=== PATIENT | male | born 1990 | race Caucasian/White ===

== ENCOUNTER → 2016-07-31 | Outpatient (CLI) | payer BC ==
[~2016-07-31] MED LIST: ACET-1047 PO; ALPR-411 PO; AMOX875T PO; BUPR8MIS SL; CLON0.5T3 PO; DEXM10TA2 PO; DICY20TA35 PO; DIPH25CA50 PO; EFFSR375 PO; KETO10TA PO; MDR4 PO; NCY50 PO; OMEP40CA41 PO; ONDA4TAB10 SL; OXYC-57 PO; OXYC1TAB3 PO; PARO10TA4 PO; PARO1TAB27 PO; PXL/10 PO; RIVA1.5T PO; SENN-65 PO; SENN8.6T7 PO; SERT50TA PO; TRAZ50TA35 PO; XRL15 PO; ZOFRAN ODT PO
[2016-07-31 15:26] LABS: ALT/SGPT 17 U/L (12-78); AST/SGOT 11 U/L (15-37); BLOOD UREA NITROGEN 13 mg/dl (7-18); BUN/CREATININE RATIO 14.4 (10-20); CARBON DIOXIDE 30 mmol/L (21-32); CHLORIDE 106 mmol/L (98-107); CREATININE 0.93 mg/dl (0.60-1.40); GLUCOSE 75 mg/dl (70-99); SODIUM 141 mmol/L (136-145)
[2016-07-31 15:28] LABS: ALB/GLOB RATIO 1.1 (0.9-2); ALKALINE PHOSPHATASE 68 U/L (45-117)
== END | disposition home or self-care (01) ==
LOC: C.LAB 14:12
PROVIDERS: ATTEND Family Medicine
DX: F11.10 Opioid abuse, uncomplicated (principal)

== ENCOUNTER 2016-09-19 17:04 | Emergency (ER) | payer BC ==
[~2016-09-19] VITALS: Ht 182.9 cm; Wt 89.8 kg
[~2016-09-19 17:04] MED LIST changes: -ACET-1047 PO; -AMOX875T PO; -BUPR8MIS SL; -CLON0.5T3 PO; -DEXM10TA2 PO; -DICY20TA35 PO; -DIPH25CA50 PO; -EFFSR375 PO; -KETO10TA PO; -MDR4 PO; -NCY50 PO; -OMEP40CA41 PO; -ONDA4TAB10 SL; -OXYC-57 PO; -OXYC1TAB3 PO; -PARO10TA4 PO; -PARO1TAB27 PO; -PXL/10 PO; -RIVA1.5T PO; -SENN-65 PO; -SENN8.6T7 PO; -SERT50TA PO; -TRAZ50TA35 PO; -XRL15 PO; -ZOFRAN ODT PO
[2016-09-19 17:11] VITALS: TEMP 36.4; Ht 182.9 cm; Wt 89.8 kg
[2016-09-19 17:28] VITALS: O2SAT 97
[2016-09-19] MEDS ORDERED: ALPR-411 PO (17:55)
--- NOTE | 2016-09-19 18:05 | DIAGNOSTIC IMAGING REPORT ---
CHEST ONE VIEW PORTABLE CLINICAL HISTORY: cp, sob dyspnea COMPARISON STUDY: 2015 FINDINGS: The bones soft tissues and hemidiaphragms are normal. The cardiomediastinal silhouette is normal. The lungs are clear. The pulmonary vasculature is normal. IMPRESSION: Negative chest. Electronically signed by: Rudy Parker M.D. 09/19/2016 6:04 PM Dictated Date/Time: 09/19/2016 6:04 PM
[2016-09-19 18:14] LABS: BASO % 0.1 %; BASO ABS # 0.01 K/uL (0-0.2); COMPLETE YES; EOS % 1.1 %; IG% 0.2 %; LYMPH % 22.9 %; LYMPH ABS # 1.94 K/uL (1.2-3.4); MEAN CELL VOLUME 88.3 fL (80-100); MEAN CORPUSCULAR HEMOGLOBIN 30.8 pg (25-34); MEAN CORPUSCULAR HGB CONC 34.9 g/dl (32-36); MEAN PLATELET VOLUME 9.7 fL (7.4-10.4); MONO % 6.7 %; PLATELET COUNT 264 K/uL (130-400); RED BLOOD COUNT 4.87 M/uL (4.7-6.1); WHITE BLOOD COUNT 8.48 K/uL (4.8-10.8)
[2016-09-19 18:31] LABS: ALT/SGPT 24 U/L (12-78); BLOOD UREA NITROGEN 6 mg/dl (7-18); BUN/CREATININE RATIO 5.8 (10-20); CALCIUM 9.2 mg/dl (8.5-10.1); CARBON DIOXIDE 25 mmol/L (21-32); CHLORIDE 107 mmol/L (98-107); GLUCOSE 111 mg/dl (70-99); POTASSIUM 3.6 mmol/L (3.5-5.1); SODIUM 142 mmol/L (136-145)
[2016-09-19 18:42] LABS: ALKALINE PHOSPHATASE 75 U/L (45-117); AST/SGOT 14 U/L (15-37)
[2016-09-19 19:05] VITALS: BP 140/90; PULSE 101; O2SAT 96
[2016-09-19 19:09] LABS: BENZODIAZEPINE, URINE NEG (NEG); COCAINE,URINE NEG (NEG); PHENCYCLIDINE, URINE NEG (NEG)
--- NOTE | 2016-09-19 19:24 | EMERGENCY ROOM VISIT NOTE ---
History Report prepared by Suellen: Connie Rice Under the Supervision of: Dr. Kanika Apple D.O. First contact with patient: 17:18 Chief Complaint: ANXIETY Stated Complaint: BAD ANXIETY ATTACK History of Present Illness The patient is a 25 year old male who presents to the Emergency Room with complaints of an episode of anxiety last night. He was just at home when it started getting harder for him to breathe. His throat felt like it was swelling up and his breathing became continually harder. This made him more anxious and this perpetuated until he felt like he was completely unable to breathe. Eventually, his anxiety subsided and he was able to sleep. He woke up this morning and he started to feel anxious again prompting him to come to the ED. He was worried that he would have another anxiety attack. He has a history of anxiety and depression since middle school. He has never had thoughts of hurting himself. He has only had one prior panic attack. He had some vomiting last night and today. The glands in his neck feel swollen. He denies any stressful events in his life recently. He is not in school and his work is low stress. He denies any recent illness. He denies any nausea, headache, dizziness , abdominal pain, diarrhea, rash, or sores. He denies any recent travel or drug use. He denies any family history of panic attacks. He is not on any medications. Source of History: patient Onset: last night Position: other (global) Quality: other (anxiety) Timing: other (episodic) Associated Symptoms: + vomiting, No headache, No nausea, No abdominal pain, No diarrhea, No rash Note: Pt reports neck gland swelling. Pt denies dizziness, sores. Review of Systems See HPI for pertinent positives & negatives. A total of 10 systems reviewed and were otherwise negative. Past Medical & Surgical Medical Problems: (1) Depression (2) Drug abuse Family History Patient reports no known family medical history. Social History Smoking Status: Never Smoker Alcohol Use: occasionally Housing Status: lives with family Current/Historical Medications Scheduled PRN Alprazolam (Alprazolam), 0.5 MG PO BID PRN for Anxiety Allergies Coded Allergies: No Known Allergies (Unverified , 09/18/16) Physical Exam Vital Signs Date Time Temp Pulse Resp B/P (MAP) Pulse Ox O2 Delivery O2 Flow Rate FiO2 09/19/16 19:05 101 18 140/90 96 Room Air 09/19/16 18:37 99 18 98 Room Air 09/19/16 17:33 100 09/19/16 17:28 97 Room Air 09/19/16 17:11 36.4 113 20 127/87 95 Room Air Physical Exam GENERAL: alert, anxious appearing, well nourished, no distress, non-toxic EYE EXAM: normal conjunctiva, PERRL and EOM's grossly intact OROPHARYNX: no exudate, no erythema, lips, buccal mucosa, and tongue normal and mucous membranes are moist NECK: supple, no nuchal rigidity, no adenopathy, non-tender LUNGS: Clear to auscultation. Normal chest wall mechanics HEART: no murmurs, S1 normal and S2 normal ABDOMEN: abdomen soft, non-tender, normo-active bowel sounds, no masses, no rebound or guarding. BACK: Back is symmetrical on inspection and there is no deformity, no midline tenderness, no CVA tenderness. SKIN: no rashes and no bruising UPPER EXTREMITIES: upper extremities are grossly normal. LOWER EXTREMITIES: No pitting edema. NEURO EXAM: Normal sensorium, cranial nerves II-XII grossly intact, normal speech, no gross weakness of arms, no gross weakness of legs. Medical Decision & Procedures ER Provider Diagnostic Interpretation: Xray results have been interpreted by the radiologist and me. CHEST ONE VIEW PORTABLE CLINICAL HISTORY: cp, sob dyspnea COMPARISON STUDY: 2015 FINDINGS: The bones soft tissues and hemidiaphragms are normal. The cardiomediastinal silhouette is normal. The lungs are clear. The pulmonary vasculature is normal. IMPRESSION: Negative chest. Electronically signed by: Rudy Parker M.D. 09/19/2016 6:04 PM Dictated Date/Time: 09/19/2016 6:04 PM Laboratory Results 09/19/16 17:50 Red Blood Count 4.87, Mean Corpuscular Volume 88.3, Mean Corpuscular Hemoglobin 30.8, Mean Corpuscular Hemoglobin Concent 34.9, Mean Platelet Volume 9.7, Neutrophils (%) (Auto) 69.0, Lymphocytes (%) (Auto) 22.9, Monocytes (%) (Auto) 6.7, Eosinophils (%) (Auto) 1.1, Basophils (%) (Auto) 0.1, Neutrophils # (Auto) 5.85, Lymphocytes # (Auto) 1.94, Monocytes # (Auto) 0.57, Eosinophils # (Auto) 0.09, Basophils # (Auto) 0.01 09/19/16 17:50 Test 09/19/16 17:50 09/19/16 18:20 White Blood Count 8.48 K/uL (4.8-10.8) Red Blood Count 4.87 M/uL (4.7-6.1) Hemoglobin 15.0 g/dL (14.0-18.0) Hematocrit 43.0 % (42-52) Mean Corpuscular Volume 88.3 fL (80-100) Mean Corpuscular Hemoglobin 30.8 pg (25-34) Mean Corpuscular Hemoglobin Concent 34.9 g/dl (32-36) Platelet Count 264 K/uL (130-400) Mean Platelet Volume 9.7 fL (7.4-10.4) Neutrophils (%) (Auto) 69.0 % Lymphocytes (%) (Auto) 22.9 % Monocytes (%) (Auto) 6.7 % Eosinophils (%) (Auto) 1.1 % Basophils (%) (Auto) 0.1 % Neutrophils # (Auto) 5.85 K/uL (1.4-6.5) Lymphocytes # (Auto) 1.94 K/uL (1.2-3.4) Monocytes # (Auto) 0.57 K/uL (0.11-0.59) Eosinophils # (Auto) 0.09 K/uL (0-0.5) Basophils # (Auto) 0.01 K/uL (0-0.2) RDW Standard Deviation 42.7 fL (36.4-46.3) RDW Coefficient of Variation 13.2 % (11.5-14.5) Immature Granulocyte % (Auto) 0.2 % Immature Granulocyte # (Auto) 0.02 K/uL (0.00-0.02) D-Dimer 330 ug/L FEU (0-500) Anion Gap 10.0 mmol/L (3-11) Est Creatinine Clear Calc Drug Dose 126.1 ml/min Estimated GFR () 122.4 Estimated GFR (Non- 105.6 BUN/Creatinine Ratio 5.8 (10-20) Calcium Level 9.2 mg/dl (8.5-10.1) Total Bilirubin 0.3 mg/dl (0.2-1) Aspartate Amino Transf (AST/SGOT) 14 U/L (15-37) Alanine Aminotransferase (ALT/SGPT) 24 U/L (12-78) Alkaline Phosphatase 75 U/L (45-117) Troponin I < 0.015 ng/ml (0-0.045) Total Protein 7.8 gm/dl (6.4-8.2) Albumin 3.8 gm/dl (3.4-5.0) Globulin 4.0 gm/dl (2.5-4.0) Albumin/Globulin Ratio 1.0 (0.9-2) Thyroid Stimulating Hormone (TSH) 1.050 uIu/ml (0.300-4.500) Urine Opiates Screen NEG (NEG) Urine Methadone, Qualitative NEG (NEG) Urine Barbiturates NEG (NEG) Urine Phencyclidine (PCP) Level NEG (NEG) Ur Amphetamine/Methamphetamine NEG (NEG) MDMA (Ecstasy) Screen NEG (NEG) Urine Benzodiazepines Screen NEG (NEG) Urine Cocaine Metabolite NEG (NEG) Urine Marijuana (THC) NEG (NEG) Ethyl Alcohol mg/dL 75.0 mg/dl (0-3) Laboratory results per my review. ECG Indication: SOB/dyspnea Rate (beats per minute): 91 Rhythm: sinus rhythm Findings: no acute ischemic change, no ectopy, other (normal axis, normal intervals, no evidence of WPW, no evidence of Brugada) ED Course 172: The patient was evaluated in room A11B. A complete history and physical exam was performed. 1918: Upon reevaluation, the patient is feeling better. I discussed the findings and the treatment plan with the patient. He verbalizes agreement and understanding. He was discharged home. Pt states he drank alcohol this am when had another panic attack because he could swallow pills. Pt questioned about his drinking in front of family and he states he doesn't drink regularly and doesn't feel it's a problem. Encouraged close follow-up with his psychiatrist in establishing counselor to help discuss his stress and anxiety also. Patient says he does have alprazolam at home that his psychiatrist prescribed to use when he has panic attacks. Medical Decision Differential diagnosis: Etiologies such as mood disorder, infection, hypoglycemia, electrolyte abnormalities, cardiac sources, intracerebral event, toxicologic, neurologic, as well as others were entertained. Medication Reconciliation: I attest that I have personally reviewed the patient' s current medication list. Blood pressure screening: Patient was found to have a slightly elevated blood pressure due to circumstances. I do not believe that the patient requires hypertension monitoring. Patient well-appearing here despite complaints, labs and imaging reassuring. Scuffs patient avoidance of alcohol and recreational drug use, close follow-up with counselor and psychiatrist, appropriate use of the alprazolam his previous prescribed home, symptoms to watch and return for, he verbalized understanding was agreeable with plan. Doubt occult cardiac etiology, PE, occult infectious etiology, pheochromocytoma, cutting myopathy, tamponade, effusion, perforation, GI bleed. Impression Primary Impression: Acute anxiety Scribe Attestation The scribe's documentation has been prepared under my direction and personally reviewed by me in its entirety. I confirm that the note above accurately reflects all work, treatment, procedures, and medical decision making performed by me. Departure Information Dispostion Home / Self-Care Referrals Edd Leon, D.O. (PCP) Patient Instructions My [facility] Additional Instructions You may try the alprazolam you have at home if you feel you're having a panic attack. Please consider establishing a counselor to see more frequently than your once a month visit to the psychiatrist. Please avoid any further alcohol use is can contribute to panic attacks. You may otherwise eat and drink normally. If you have any worsening attacks, feel the alprazolam doesn't help, or develop other new and concerning symptoms, please return the emergency room.
[2016-09-21] MEDS ORDERED: OXYC-57 PO (15:45)
[2016-09-21] MEDS ORDERED: KETO10TA PO (15:45)
[2016-10-22] MEDS ORDERED: NCY50 PO (13:31)
[2016-10-22] MEDS ORDERED: EFFSR375 PO (13:31)
[2016-10-22] MEDS ORDERED: DIPH25CA50 PO (13:31)
[2016-10-22] MEDS ORDERED: ACET-1047 PO (13:31)
[2016-10-22] MEDS ORDERED: MDR4 PO (13:31)
[2016-10-22] MEDS ORDERED: XRL15 PO (13:31)
[2016-10-22] MEDS ORDERED: SENN8.6T7 PO (13:31)
== END 2016-09-19 19:31 | disposition home or self-care (01) ==
LOC: C.EDB 17:06 → C.EDA 19:31
DX: F41.9 Anxiety disorder, unspecified (principal)

== ENCOUNTER → 2016-09-21 | Day surgery (SDC) | payer BC ==
[2016-09-18 12:24] VITALS: Ht 182.9 cm; Wt 88.6 kg
[~2016-09-21] VITALS: Ht 182.9 cm; Wt 88.6 kg
[~2016-09-21] MED LIST changes: +ACET-1047 PO; +AMOX875T PO; +ATROPINE SULFATE 0.1 MG/ML 5ML SYR IV PRN; +BND25X PO; +BUPIVACAINE/EPINEPHRINE 0.25% 1:200,000 30 ML VIAL ONE; +CEFAZOLIN 2000 MG/60 ML D5W IV SCH; +CLON0.5T3 PO; +DEXAMETHASONE SOD INJ 4 MG/ML VIAL IV PRN; +DEXAMETHASONE SOD INJ 4 MG/ML VIAL ONE; +DEXM10TA2 PO; +DICY20TA35 PO; +EFFSR375 PO; +EpHEDrine SULFATE INJ 50 MG/ML AMP IV PRN; +FENTANYL CITRATE INJ 50 MCG/1 ML 2 ML VIAL IV PRN; +FENTANYL CITRATE INJ 50 MCG/1 ML 2 ML VIAL ONE; +KETO10TA PO; +KETOROLAC TROMETHAMINE 30 MG/ML VIAL IV. PRN; +LABETALOL HCL IV 5 MG/ML 20ML IV PRN; +LACTATED RINGER'S 1000ML 1,000 ML IV SCH; +LIDOCAINE HCL 1% MPF 2 ML VIAL ONE; +LIDOCAINE HCL 2% 2 ML VIAL (20MG/ML) ONE; +MDR4 PO; +METOCLOPRAMIDE HCL INJ 5 MG/ML 2 ML VIAL IV PRN; +MIDAZOLAM HCL 1 MG/ML 2ML VIAL ONE; +MoRPHine SULFATE 10 MG/ML CARP/VIAL IV PRN; +NCY50 PO; +OMEP40CA41 PO; +ONDA4TAB10 SL; +ONDANSETRON INJ 2 MG/ML 2 ML VIAL IV PRN; +ONDANSETRON INJ 2 MG/ML 2 ML VIAL ONE; +OXYC-57 PO; +OXYC1TAB3 PO; +OXYCODONE/ACETAMINOPHEN 5-325 TAB PO PRN; +PARO10TA4 PO; +PARO1TAB27 PO; +PHENYLEPHRINE 100MCG/ML 5ML SYR IV PRN; +PROPOFOL IV EMULSION 10 MG/ML 20 ML VIAL IV ONE; +PXL/10 PO; +RIVA1.5T PO; +ROPIVACAINE 0.5% 5 MG/ML 30 ML VIAL ONE; +SENN-65 PO; +SENN8.6T7 PO; +SODIUM CHLORIDE 0.9% 1000ML 1,000 ML IV SCH; +XRL15 PO; +ZOFRAN ODT PO
--- NOTE | 2016-09-21 10:59 | History & Physical Bridge - SC ---
H&P Re-Evaluation Bridge Note: I have examined the patient, reviewed the History & Physical and in the interval since the performance of the History & Physical I have noted the following changes of clinical significance: No changes noted
--- NOTE | 2016-09-21 15:37 | [facility] Post Operative Brief Note ---
Immediate Operative Summary Operative Date Sep 21, 2016. Pre-Operative Diagnosis Right Shoulder Anterior Dislocation Post-Operative Diagnosis same Procedure(s) Performed Right Shoulder Open Afs[place]h Surgeon Dr. Maikel Campbell Pipe Stem Sawyer Surgeon(s) Jose F Diehl PA-C Estimated Blood Loss 150CC Findings as above Specimens none Complication(s) None Disposition Recovery Room / PACU
--- NOTE | 2016-09-21 15:47 | Discharge Instructions-SurgCtr ---
Discharge Instructions Date of Service Sep 21, 2016. Visit Reason for Visit: Right Shoulder Anterior Dislocation Discharge Discharge Diagnosis / Problem: SAME ABOVE Discharge Goals Goal(s): Decrease discomfort, Improve function Activity Recommendations Activity Limitations: as noted below Lifting Limitations: until after follow-up appointment Exercise/Sports Limitations: until after follow-up appointment Shower/Bathe: tomorrow Anesthesia . Post Anesthesia Instructions: If you have had General Anesthesia or IV Sedation: * Do not drive today. * Resume driving when surgeon permits. * Do not make important decisions or sign legal documents today. * Call surgeon for: 1. Temperature elevations greater than 101 degrees F. 2. Uncontrollable pain. 3. Excessive bleeding. 4. Persistent nausea and vomiting. 5. Medication intolerance (nausea, vomiting or rash). * For nausea and vomiting use only clear liquids such as: tea, soda, bouillon until nausea subsides, then gradually increase diet as tolerated. * If you have any concerns or questions, call your surgeon's office. If physician is unavailable and it is an emergency, call 911 or go to the nearest emergency room. . Instructions / Follow-Up Instructions / Follow-Up MEDICATIONS: * Resume previous medications unless instructed otherwise by your surgeon. * Always take pain medication on a full stomach or with food to avoid upset stomach. * Do not drink alcohol or drive while taking narcotics. * Ibuprofen or Tylenol may be taken if narcotic not needed. SPECIAL CARE INSTRUCTIONS: __ None _X_ Keep extremity elevated and iced x 48 hours; apply ice 20-30 minutes 8-10 times/day. May remove at night. _X_ Sling (MAY ONLY REMOVE AFTER 48 HOURS ONLY TO SHOWER AND IF YOU HAVE THERAPY ) _X_24 hrs/day __ Remove at night __ Shoulder Immobilizer __ 24 hrs/day __ Remove at night _X_ Dressing __ Maintain until seen in office, may shower with plastic over site _X_ Remove dressings in 24-48 hours and then may shower MAY REMOVE THE CLEAR PLASTIC AND THE WHITE DRESSING. DO NOT REMOVE THE ADHESIVE THE IS DIRECTLY TO THE SKIN NEAR THE INCISION __ Cover incisions with band-aids after showering __ Do not remove steri-strips Call physician if chills or temperature rises above 102 degrees or pain unrelieved by prescribed pain medications at . . Diet Recommendations Home Diet: no limitations Fluid Restriction: None Procedures Procedures Performed: Right Shoulder Open Latarjet Pending Studies Studies pending at discharge: no Work Instructions Return To Work: after follow-up Lifting Limitations: NO LIFTING WITH RIGHT ARM Medical Emergencies . Who to Call and When: Medical Emergencies: If at any time you feel your situation is an emergency, please call 911 immediately. . Non-Emergent Contact Non-Emergency issues call your: Primary Care Provider Call Non-Emergent contact if: you have a fever, temperature is above 101.5 . . "Provider Documentation" section prepared by Narciso Diehl. .
[2016-09-21 16:20] VITALS: TEMP 37.1
--- NOTE | 2016-09-21 16:47 | Anesthesia Progress Nt - [facility] ---
Anesthesia Post Op Note Date & Time Sep 21, 2016 at 16:47 Vital Signs Pain Intensity: 2 Vital Signs Past 12 Hours Date Time Temp Pulse Resp B/P (MAP) Pulse Ox O2 Delivery O2 Flow Rate FiO2 09/21/16 16:35 107 18 146/88 (107) 98 Room Air 09/21/16 16:22 97 15 98 09/21/16 16:22 97 15 09/21/16 16:21 141/85 09/21/16 16:20 37.1 99 21 141/85 97 Room Air 09/21/16 16:17 94 30 98 09/21/16 16:17 94 30 09/21/16 16:16 146/83 09/21/16 16:12 98 19 100 09/21/16 16:12 97 19 09/21/16 16:11 138/86 09/21/16 16:07 91 29 100 09/21/16 16:07 92 29 09/21/16 16:06 138/88 09/21/16 16:02 94 20 100 09/21/16 16:02 99 20 09/21/16 16:01 133/80 09/21/16 15:57 98 21 09/21/16 15:57 99 21 99 09/21/16 15:56 130/74 09/21/16 15:52 85 18 99 09/21/16 15:52 85 18 09/21/16 15:51 136/76 09/21/16 15:48 126/77 09/21/16 15:47 36.8 92 18 126/77 100 Room Air 09/21/16 13:37 0 09/21/16 13:36 141/87 09/21/16 13:34 88 09/21/16 13:34 84 19 99 09/21/16 13:31 148/86 09/21/16 13:29 96 09/21/16 13:29 99 21 147/83 100 09/21/16 11:35 36.8 89 16 123/85 (98) 97 Room Air Notes Mental Status: alert / awake / arousable, participated in evaluation Pt Amnestic to Procedure: Yes Nausea / Vomiting: adequately controlled Pain: adequately controlled Airway Patency, RR, SpO2: stable & adequate BP & HR: stable & adequate Hydration State: stable & adequate Anesthetic Complications: no major complications apparent
[2016-09-21 16:55] VITALS: BP 147/81; PULSE 92; O2SAT 96
--- NOTE | 2016-10-04 13:07 | OPERATIVE REPORT ---
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 POSTOPERATIVE DIAGNOSIS: Same. PROCEDURE: Open Latarjet procedure of the right shoulder. SURGEON: Dr. Felix Campbell. PRESIDING JUDGE: Jose F Diehl PA-C who assistance was necessary for positioning the arm and helping with instrumentation. ANESTHESIA: General with a right interscalene nerve block. COMPLICATIONS: None. CONDITION: Stable to PACU. INDICATIONS: Mani is a pleasant 25-year-old male who has been having recurrent dislocations of his shoulder. He has already had two failed anatomic Bankart repairs. The last time he dislocated I sent him back to therapy and he continued to dislocate at physical therapy. His recurrent dislocations are changing his life so he has elected to proceed with an open Latarjet procedure. On September 21, 2016, he arrived at [facility] for the above procedure. He was seen in the preoperative holding area and the operative extremity was identified and signed. He was given a preoperative antibiotic and a right interscalene nerve block. He was taken back to the operating room and laid on the table in supine position and put under general anesthesia. He was then put into the beach chair position. The right shoulder was prepped and draped in sterile fashion and a timeout was done. The patient and operative extremity were properly identified. An axillary incision was made. Dissection was taken down through the deltopectoral interval and the anterior shoulder was exposed. The coracoid was exposed first. The coracoacromial ligament was released off the lateral aspect of the coracoid and the pectoralis minor was released off the medial aspect. The coracoid was then resected with an oscillating saw. The subscapularis was then exposed. A subscapularis split technique was then used to expose the anterior glenoid. Once I had good exposure anterior glenoid a bur was used to flatten out the anterior surface of the glenoid. The coracoid graft was then prepared using the Ar[employer]rex Latarjet system. Two 4 mm drill holes were placed through the graft and the graft was being oriented in a congruent arc technique. The coracoid graft was then placed and two guidepins were placed. The anterior aspect of the glenoid was then drilled and a 36 mm screw was placed superiorly and a 34 mm screw was placed inferiorly. This gave excellent purchase and stability to the graft. The shoulder was then irrigated and the subscapularis capsular layer was closed with 0 Vicryl. The subscapularis was then repaired with 0 Vicryl. The shoulder was brought through a full range of motion and felt to be stable. The wound was then irrigated and closed with 3-0 Vicryl and a 3-0 V-Loc suture and a Prineo dressing. He was placed in a soft dressing and a regular arm sling. He was then extubated and transferred to a [facility] and taken to the post-anesthesia care unit in stable condition. He tolerated the procedure well.
== END | disposition home or self-care (01) ==
LOC: X.SURG 11:24
PROVIDERS: ATTEND Orthopaedic Surgery
DX: S43.014A Anterior dislocation of right humerus, initial encounter (principal); X58.XXXA Exposure to other specified factors, initial encounter

== ENCOUNTER 2016-10-19 09:48 | Inpatient (IN) | payer BC ==
[~2016-10-19] VITALS: Ht 182.9 cm; Wt 91.6 kg
[~2016-10-19 09:48] MED LIST changes: -ACET-1047 PO; -AMOX875T PO; -ATROPINE SULFATE 0.1 MG/ML 5ML SYR IV PRN; -BND25X PO; -BUPIVACAINE/EPINEPHRINE 0.25% 1:200,000 30 ML VIAL ONE; -CEFAZOLIN 2000 MG/60 ML D5W IV SCH; -CLON0.5T3 PO; -DEXAMETHASONE SOD INJ 4 MG/ML VIAL IV PRN; -DEXAMETHASONE SOD INJ 4 MG/ML VIAL ONE; -DEXM10TA2 PO; -DICY20TA35 PO; -EFFSR375 PO; -EpHEDrine SULFATE INJ 50 MG/ML AMP IV PRN; -FENTANYL CITRATE INJ 50 MCG/1 ML 2 ML VIAL IV PRN; -FENTANYL CITRATE INJ 50 MCG/1 ML 2 ML VIAL ONE; -KETOROLAC TROMETHAMINE 30 MG/ML VIAL IV. PRN; -LABETALOL HCL IV 5 MG/ML 20ML IV PRN; -LACTATED RINGER'S 1000ML 1,000 ML IV SCH; -LIDOCAINE HCL 1% MPF 2 ML VIAL ONE; -LIDOCAINE HCL 2% 2 ML VIAL (20MG/ML) ONE; -MDR4 PO; -METOCLOPRAMIDE HCL INJ 5 MG/ML 2 ML VIAL IV PRN; -MIDAZOLAM HCL 1 MG/ML 2ML VIAL ONE; -MoRPHine SULFATE 10 MG/ML CARP/VIAL IV PRN; -NCY50 PO; -OMEP40CA41 PO; -ONDA4TAB10 SL; -ONDANSETRON INJ 2 MG/ML 2 ML VIAL IV PRN; -ONDANSETRON INJ 2 MG/ML 2 ML VIAL ONE; -OXYC1TAB3 PO; -OXYCODONE/ACETAMINOPHEN 5-325 TAB PO PRN; -PARO10TA4 PO; -PARO1TAB27 PO; -PHENYLEPHRINE 100MCG/ML 5ML SYR IV PRN; -PROPOFOL IV EMULSION 10 MG/ML 20 ML VIAL IV ONE; -PXL/10 PO; -RIVA1.5T PO; -ROPIVACAINE 0.5% 5 MG/ML 30 ML VIAL ONE; -SENN-65 PO; -SENN8.6T7 PO; -SODIUM CHLORIDE 0.9% 1000ML 1,000 ML IV SCH; -XRL15 PO; -ZOFRAN ODT PO
[2016-10-19 10:34] LABS: BASO % 0.1 %; BASO ABS # 0.01 K/uL (0-0.2); COMPLETE YES; EOS % 1.3 %; IG% 0.2 %; LYMPH % 28.4 %; LYMPH ABS # 2.65 K/uL (1.2-3.4); MEAN CELL VOLUME 88.1 fL (80-100); MEAN CORPUSCULAR HEMOGLOBIN 29.7 pg (25-34); MEAN CORPUSCULAR HGB CONC 33.7 g/dl (32-36); MEAN PLATELET VOLUME 9.3 fL (7.4-10.4); MONO % 10.1 %; NEUT % 59.9 %; PLATELET COUNT 273 K/uL (130-400); RED BLOOD COUNT 4.88 M/uL (4.7-6.1); WHITE BLOOD COUNT 9.34 K/uL (4.8-10.8)
[2016-10-19 10:45] LABS: PARTIAL THROMBOPLASTIN RATIO 1.1; PROTHROMBIN TIME (PATIENT) 10.8 SECONDS (9.0-12.0)
[2016-10-19 10:50] LABS: BLOOD UREA NITROGEN 10 mg/dl (7-18); BUN/CREATININE RATIO 9.8 (10-20); CALCIUM 9.5 mg/dl (8.5-10.1); CARBON DIOXIDE 29 mmol/L (21-32); CHLORIDE 103 mmol/L (98-107); GLUCOSE 87 mg/dl (70-99); POTASSIUM 3.7 mmol/L (3.5-5.1); SODIUM 135 mmol/L (136-145)
[2016-10-19 10:55] LABS: C-REACTIVE PROTEIN 0.66 mg/dl (0-0.29)
--- NOTE | 2016-10-19 10:59 | DIAGNOSTIC IMAGING REPORT ---
CHEST 2 VIEWS ROUTINE CLINICAL HISTORY: dyspnea, left chest pain pain COMPARISON STUDY: 09/19/2016 FINDINGS: Patchy parenchymal infiltrative change left lung base. Lungs otherwise are clear. No evidence for cardiac enlargement. IMPRESSION: Patchy parenchymal infiltrate left lung base. The above report was generated using voice recognition software. It may contain grammatical, syntax or spelling errors. Electronically signed by: Rudy Parker M.D. 10/19/2016 10:58 AM Dictated Date/Time: 10/19/2016 10:57 AM
[2016-10-19] MEDS ORDERED: OPTIRAY 320 IV PRN (11:00)
--- NOTE | 2016-10-19 11:30 | DIAGNOSTIC IMAGING REPORT ---
(CHEST FOR PE) ANGIO WITH CLINICAL HISTORY: 25 years-old Male presenting with left rib pain, increases with deep breath and dry hacking cough, complains of chills, clinical concern for pulmonary embolus. TECHNIQUE: Multidetector CT angiography of the chest was performed after administration of intravenous contrast. 3-D volumetric and maximum intensity projection (MIP) images were subsequently reconstructed for review. IV contrast: 94 mL of Optiray 320. A dose lowering technique was used consistent with the principles of ALARA (as low as reasonably achievable). COMPARISON: 05/08/2013. CT DOSE (mGy.cm): The estimated cumulative dose is 380.58 mGy.cm. FINDINGS: Quiller Machine Fixer topogram: Unremarkable. Pulmonary vasculature: The study is adequate for assessment of the pulmonary vascular tree. Filling defects within the right upper lobe pulmonary artery and distal segmental right upper lobe arteries as well as subsegmental pulmonary arteries of the right lower lobe. Subsegmental emboli in the left lower lobe may also be present. Main pulmonary artery not enlarged. Mild flattening of the interventricular septum. No intracardiac filling defect within the right heart. Remaining chest: On soft tissue windows, normal thyroid and thoracic inlet. No axillary, supraclavicular, hilar, or mediastinal lymphadenopathy. Normal aorta. Multichamber enlargement of the heart. Small left pleural effusion. Upper abdomen normal. On lung windows, minimal nodular groundglass opacities in the posterior segment of the right upper lobe along the major fissure. Bandlike dependent consolidation at the left lower lobe with more groundglass and nondependent consolidation in the lateral basal segment along the major fissure (series 4 image 76). Airways patent. On bone windows, 2 pin fixation across the anterior right glenoid fossa with fragmentation and persistent fracture plane along the anterior glenoid rim. IMPRESSION: 1. Bilateral pulmonary emboli within the right upper lobe, right lower lobe, and left lower lobe. The right upper lobe pulmonary artery is involved, although primarily involvement segmental/subsegmental pulmonary arteries. Apparent mild flattening of the interventricular septum could raise concern for right heart strain. Correlate clinically. 2. Minimal nodular groundglass opacities in the right upper lobe, could relate to the presence of pulmonary emboli. 3. Left basilar atelectasis with small left pleural effusion. 4. Additional consolidation in the nondependent left lower lobe. Although this may relate to pulmonary emboli, dissection cannot be excluded. The report will be called/faxed according to standard departmental protocol. Electronically signed by: Catrachito García M.D. 10/19/2016 11:29 AM Dictated Date/Time: 10/19/2016 11:16 AM
[2016-10-19] MEDS ORDERED: MoRPHine SULFATE 10 MG/ML CARP/VIAL IV STA (11:38)
[2016-10-19] MEDS ORDERED: ONDANSETRON INJ 2 MG/ML 2 ML VIAL IV STA (11:38)
[2016-10-19] MEDS ORDERED: MoRPHine SULFATE 4 MG/ML 1 ML CARP\\VIAL ONE (11:43)
[2016-10-19] MEDS ORDERED: MoRPHine SULFATE 4 MG/ML 1 ML CARP\\VIAL IV STA (11:43)
[2016-10-19] MEDS ORDERED: HEPARIN 25000 UNIT/500 ML D5W ONE (11:44)
[2016-10-19] MEDS ORDERED: HEPARIN SOD 5000 UNIT/0.5 ML CARP ONE ×2 (11:44→11:53)
[2016-10-19] MEDS ORDERED: HYDROmorphone INJ 1 MG/ML SYR IV STA (12:06)
--- NOTE | 2016-10-19 12:11 | EMERGENCY ROOM VISIT NOTE ---
ED Visit Note First contact with patient: 09:56 Staff note: I have reviewed the Patients chart and have discussed this case with my PA. I generally agree with the ED note and findings.
[2016-10-19 12:15] VITALS: O2SAT 97; Ht 182.9 cm; Wt 91.6 kg
--- NOTE | 2016-10-19 12:18 | EMERGENCY ROOM VISIT NOTE ---
History First contact with patient: 09:56 Chief Complaint: RESPIRATORY PROBLEMS Stated Complaint: CHEST PAIN Nursing Triage Summary: pt awoke with L rib pain today, pain increases with deep breath, dry hacky cough, c/o chills History of Present Illness The patient is a 25 year old male who presents to the Emergency Room with complaints of left-sided chest pain and dyspnea which began this morning. The patient states he feels that the pain is in his lung. The patient states yesterday he had been coughing a bit, however did not have any chest pain at that time. The patient denies coughing up blood or sputum. He reports a stabbing pain with taking deep breaths. The patient reports some chest congestion but denies fevers, abdominal pain, nausea, vomiting, body aches, weakness. The patient has had intermittent chills. 4 weeks ago, the patient had shoulder surgery. He was not started on blood thinners with his surgery. The patient was on pain medication, however he did run out. The patient has been mostly immobile since his surgery, and has not been exercising or very active the patient does have a history of chest pain, however he states this feels significantly different than his previous chest pain did. The patient reports 2-3 days ago, he did experience bilateral calf pain, however states this improved within 1 day. He described calf pain as feeling sore, and feeling like he had been to the gym and exercising, however he had not been. The patient denies swelling, redness, weakness, or other associated symptoms. The pain in his chest does worsen with deep breathing and coughing, as well as moving. The pain improves with sitting still and taking shallow breaths. Review of Systems A complete 10 point review of systems was reviewed with the patient with pertinent positives and negatives as per history of present illness. All else were negative. Past Medical/Surgical History Medical Problems: (1) Depression (2) History of narcotic addiction (3) Polysubstance abuse Family History Patient reports no known family medical history. Social History Smoking Status: Never Smoker Alcohol Use: occasionally Housing Status: lives with family Current/Historical Medications Scheduled PRN Alprazolam (Alprazolam), 0.5 MG PO BID PRN for Anxiety Physical Exam Vital Signs Date Time Temp Pulse Resp B/P (MAP) Pulse Ox O2 Delivery O2 Flow Rate FiO2 10/19/16 12:15 92 16 127/84 97 Nasal Cannula 2.0 10/19/16 12:15 97 Nasal Cannula 2.0 10/19/16 11:52 99 Nasal Cannula 2.0 10/19/16 11:46 81 10/19/16 11:40 85 20 121/80 96 Room Air 10/19/16 09:52 36.4 79 18 116/78 100 Room Air Physical Exam VITALS: Vitals are noted on the nurse's note and reviewed by myself. Vital signs stable. GENERAL: 25-year-old male, in no acute distress, nondiaphoretic, well-developed well-nourished. SKIN: The skin was without rashes, erythema, edema, or bruising. There is no tenting of the skin. Capillary reflex less than 2 seconds. HEAD: Normocephalic atraumatic. EARS: External auditory canals clear, tympanic membranes pearly bueno without erythema or effusion bilaterally. EYES: Pupils equal round and reactive to light and accommodation. Conjunctivae without injection, sclerae without icterus. Extraocular movements intact. NOSE: Patent, turbinates without inflammation or discharge. No sinus tenderness. MOUTH: Mucous membranes moist. Tonsils are not enlarged. Pharynx without erythema or exudate. Uvula midline. Airway patent. Tongue does not deviate. NECK: Supple without nuchal rigidity. No lymphadenopathy. No thyromegaly. Cervical spine is nontender. No JVD. HEART: Regular rate and rhythm without murmurs gallops or rubs. LUNGS: Mild wheezing noted bilaterally in all lung cook. No rales or rhonchi. No dullness to percussion. No retractions or accessory muscle use. ABDOMEN: Positive bowel sounds x 4. Normal tympanic percussion. Soft, nontender, without masses or organomegaly. Wilson sign negative. No guarding or rebound tenderness. MUSCULOSKELETAL: No muscle atrophy, erythema, or edema noted. Full range of motion without joint tenderness in all extremities. No tenderness to palpation. Normal gait. Strength 5/5 throughout. NEURO: Patient was alert and oriented to person place and time. Normal sensation to light and sharp touch. Deep tendon reflexes 2+ throughout. No focal neurological deficits. Medical Decision & Procedures ER Provider Diagnostic Interpretation: Labs: D-Dimer positive at 1810. Other coagulation studies normal. CBC without anemia, thrombocytopenia, or leukocytosis. Kidney function normal with Creatinine of 1.00. Electrolytes normal. CRP mildly elevated at 0.66. Chest X-Ray: Reviewed by myself and interpreted by radiologist: FINDINGS: Patchy parenchymal infiltrative change left lung base. Lungs otherwise are clear. No evidence for cardiac enlargement. IMPRESSION: Patchy parenchymal infiltrate left lung base. Chest CTA: Reviewed by myself and interpreted by radiologist: FINDINGS: Licensed Surveyor topogram: Unremarkable. Pulmonary vasculature: The study is adequate for assessment of the pulmonary vascular tree. Filling defects within the right upper lobe pulmonary artery and distal segmental right upper lobe arteries as well as subsegmental pulmonary arteries of the right lower lobe. Subsegmental emboli in the left lower lobe may also be present. Main pulmonary artery not enlarged. Mild flattening of the interventricular septum. No intracardiac filling defect within the right heart. Remaining chest: On soft tissue windows, normal thyroid and thoracic inlet. No axillary, supraclavicular, hilar, or mediastinal lymphadenopathy. Normal aorta. Multichamber enlargement of the heart. Small left pleural effusion. Upper abdomen normal. On lung windows, minimal nodular groundglass opacities in the posterior segment of the right upper lobe along the major fissure. Bandlike dependent consolidation at the left lower lobe with more groundglass and nondependent consolidation in the lateral basal segment along the major fissure (series 4 image 76). Airways patent. On bone windows, 2 pin fixation across the anterior right glenoid fossa with fragmentation and persistent fracture plane along the anterior glenoid rim. IMPRESSION: 1. Bilateral pulmonary emboli within the right upper lobe, right lower lobe, and left lower lobe. The right upper lobe pulmonary artery is involved, although primarily involvement segmental/subsegmental pulmonary arteries. Apparent mild flattening of the interventricular septum could raise concern for right heart strain. Correlate clinically. 2. Minimal nodular groundglass opacities in the right upper lobe, could relate to the presence of pulmonary emboli. 3. Left basilar atelectasis with small left pleural effusion. 4. Additional consolidation in the nondependent left lower lobe. Although this may relate to pulmonary emboli, dissection cannot be excluded. The report will be called/faxed according to standard departmental protocol. Bilateral LE Duplex U/S: Interpreted by radiologist, results obtained after patient admitted as an inpatient. FINDINGS: The bilateral common femoral, superficial femoral and popliteal veins were compressible. Augmentation was normal. Flow was shown within the deep calf vessels. IMPRESSION: No evidence of deep venous thrombus within the bilateral lower extremities. Laboratory Results 10/19/16 10:20 Red Blood Count 4.88, Mean Corpuscular Volume 88.1, Mean Corpuscular Hemoglobin 29.7, Mean Corpuscular Hemoglobin Concent 33.7, Mean Platelet Volume 9.3, Neutrophils (%) (Auto) 59.9, Lymphocytes (%) (Auto) 28.4, Monocytes (%) (Auto) 10.1, Eosinophils (%) (Auto) 1.3, Basophils (%) (Auto) 0.1, Neutrophils # (Auto ) 5.60, Lymphocytes # (Auto) 2.65, Monocytes # (Auto) 0.94, Eosinophils # (Auto ) 0.12, Basophils # (Auto) 0.01 10/19/16 10:20 Test 10/19/16 10:20 White Blood Count 9.34 K/uL (4.8-10.8) Red Blood Count 4.88 M/uL (4.7-6.1) Hemoglobin 14.5 g/dL (14.0-18.0) Hematocrit 43.0 % (42-52) Mean Corpuscular Volume 88.1 fL (80-100) Mean Corpuscular Hemoglobin 29.7 pg (25-34) Mean Corpuscular Hemoglobin Concent 33.7 g/dl (32-36) Platelet Count 273 K/uL (130-400) Mean Platelet Volume 9.3 fL (7.4-10.4) Neutrophils (%) (Auto) 59.9 % Lymphocytes (%) (Auto) 28.4 % Monocytes (%) (Auto) 10.1 % Eosinophils (%) (Auto) 1.3 % Basophils (%) (Auto) 0.1 % Neutrophils # (Auto) 5.60 K/uL (1.4-6.5) Lymphocytes # (Auto) 2.65 K/uL (1.2-3.4) Monocytes # (Auto) 0.94 K/uL (0.11-0.59) Eosinophils # (Auto) 0.12 K/uL (0-0.5) Basophils # (Auto) 0.01 K/uL (0-0.2) RDW Standard Deviation 42.3 fL (36.4-46.3) RDW Coefficient of Variation 13.1 % (11.5-14.5) Immature Granulocyte % (Auto) 0.2 % Immature Granulocyte # (Auto) 0.02 K/uL (0.00-0.02) Prothrombin Time 10.8 SECONDS (9.0-12.0) Prothromb Time International Ratio 1.0 (0.9-1.1) Activated Partial Thromboplast Time 28.9 SECONDS (21.0-31.0) Partial Thromboplastin Ratio 1.1 D-Dimer 1810 ug/L FEU (0-500) Anion Gap 3.0 mmol/L (3-11) Est Creatinine Clear Calc Drug Dose 126.1 ml/min Estimated GFR () 122.4 Estimated GFR (Non- 105.6 BUN/Creatinine Ratio 9.8 (10-20) Calcium Level 9.5 mg/dl (8.5-10.1) Troponin I < 0.015 ng/ml (0-0.045) C-Reactive Protein 0.66 mg/dl (0-0.29) Medications Administered Medications (Trade) Dose Ordered Sig/Saud Route Start Time Stop Time Status Last Admin Dose Admin Ondansetron HCl (Zofran Inj) 4 mg NOW STAT IV 10/19/16 11:38 10/19/16 11:40 DC 10/19/16 11:47 4 MG Heparin Sodium/ Dextrose 1 ea NOW STAT N/A 10/19/16 11:38 10/19/16 11:40 DC 10/19/16 11:38 1 EA Morphine Sulfate (MoRPHine SULFATE INJ) 4 mg NOW STAT IV 10/19/16 11:43 10/19/16 11:44 DC 10/19/16 11:48 4 MG Heparin Sodium/ Dextrose (Heparin 25,000 Unit/500ml D5W) 25,000 unit STK-MED ONCE .ROUTE 10/19/16 11:44 10/19/16 11:45 DC 10/19/16 11:57 25,000 UNIT Heparin Sodium (Porcine) (Heparin Sq 5000 Unit/0.5ml) 5,000 unit STK-MED ONCE .ROUTE 10/19/16 11:44 10/19/16 11:45 DC 10/19/16 11:55 5,000 UNIT Heparin Sodium (Porcine) (Heparin Sq 5000 Unit/0.5ml) 5,000 unit STK-MED ONCE .ROUTE 10/19/16 11:53 10/19/16 11:54 DC 10/19/16 11:57 1,000 UNIT Hydromorphone HCl (Dilaudid Inj) 1 mg NOW STAT IV 10/19/16 12:06 10/19/16 12:07 DC 10/19/16 12:11 1 MG Sodium Chloride 1,000 ml @ 100 mls/hr Q10H IV 10/19/16 12:41 10/19/16 22:40 10/19/16 16:07 100 MLS/HR ECG Indication: chest pain Rate (beats per minute): 75 Rhythm: normal sinus Comparison ECG Date: Change: no significant change ED Course The patient was seen and evaluated as above. IV access was obtained and labs were drawn. EKG was completed. The patient was sent for a chest x-ray. Upon noting positive d-dimer, the patient was sent for CTA. Multiple pulmonary emboli noted within the lungs. The patient does not report any significant bleeding history. He denies intracranial hemorrhage, hematuria , GI bleed, or other history of significant bleeding. The patient was started on a heparin drip and bolus. The patient did request pain medication at this time. The patient was given 4 mg morphine IV and 4 mg Zofran IV. I did contact the [facility] service to request admission for the patient. I spoke with DANIEL Espinoza, via phone and advised her of patient condition. She states they will accept the admission and requested I order a bilateral venous Doppler of the lower extremities. The patient states morphine did not help with his pain. I ordered Dilaudid 1 mg. The patient does report mild improvement in pain with this medication. The patient's parents are at bedside, and I did discuss the patient condition and plan of care at this time with them. Care was assumed by hospitalist at this time. The patient was transferred to the floor. Medical Decision The patient presented today with chest pain and dyspnea. Based on his recent history of surgery and inactivity, I did suspect pulmonary embolism upon initial examination. I did also consider etiologies including acute coronary syndrome, pneumonia, pleural effusion, pneumothorax, hemothorax, acute bronchitis, DVT, endocarditis , pericarditis, musculoskeletal pain, malignancy, and others. Impression Primary Impression: Pulmonary emboli Critical Care I have personally spent greater than 35 minutes of critical care time in the direct management of this patient. This includes bedside care, interpretation of diagnostic studies, and testing, discussion with consultants, patient, and family members, and other required patient management activities. This 35 minutes is in excess of all separately billable procedures. Departure Information Dispostion Admitted as an inpatient Condition GOOD Referrals No Doctor, Assigned (PCP) Patient Instructions [facility] Problem Qualifiers Primary Impression: Pulmonary emboli Pulmonary embolism type: other Chronicity: acute Acute cor pulmonale presence: without acute cor pulmonale Qualified Codes: I26.99 - Other pulmonary embolism without acute cor pulmonale
[2016-10-19] MEDS ORDERED: SODIUM CHLORIDE 0.9% 1000ML 1,000 ML IV SCH (12:41)
[2016-10-19] MEDS ORDERED: ONDANSETRON INJ 2 MG/ML 2 ML VIAL IV PRN (12:45)
[2016-10-19] MEDS ORDERED: ACETAMINOPHEN 325 MG TAB PO PRN (12:45)
[2016-10-19] MEDS ORDERED: ENOXAPARIN 1 MG/KG SQ SCH (14:00)
[2016-10-19] MEDS ORDERED: ENOXAPARIN 100 MG/1ML SYR SQ STA (14:02)
--- NOTE | 2016-10-19 14:10 | Progress Note ---
Progress Note Date of Service Oct 19, 2016. Progress Note Patient was seen and evaluated with HOLLIE Amaya. Patient comes in with c/o chest pain/SOB since today morning. Pain is pleuritic in nature. Had some left calf soreness yesterday. Had recent right shoulder surgery 2 months ago. Hx of Drug abuse on vivitrol. EXAM: Gen- AAOX3, no distress Neck- No JVD Lungs- B/L decreased, no wheezing, rales Heart- S1, S2 normal Abdomen- Soft, non tender, non distended, BS present Ext- no edema Labs- reviewed Imaging- -CT chest- 1. Bilateral pulmonary emboli within the right upper lobe, right lower lobe, and left lower lobe. The right upper lobe pulmonary artery is involved, although primarily involvement segmental/subsegmental pulmonary arteries. Apparent mild flattening of the interventricular septum could raise concern for right heart strain. Correlate clinically. 2. Minimal nodular groundglass opacities in the right upper lobe, could relate to the presence of pulmonary emboli. 3. Left basilar atelectasis with small left pleural effusion. 4. Additional consolidation in the nondependent left lower lobe. Although this may relate to pulmonary emboli, dissection cannot be excluded. ASSESSMENT AND PLAN: BILATERAL PULMONARY EMBOLISM -Patient presented with chest pain, pleuritic, SOB, D dimer elevated, CT chest- B/L PE as above -Pre disposing factor: None identified. Did have right shoulder surgery causing less mobility, but unlikely to cause PE B/L. On vivitrol for drug abuse in past - rarely causes PE. -Not hypoxic, no tachycardia -IV Heparin in ER---> Change to Lovenox SQ BID. Discussed about options of Coumadin vs Xarelto. Will think about it and decide. Prescription given to SS to check for insurance coverage meanwhile -Pain control- challenging with hx of drug abuse, on vivitrol now. Did receive percocet for right shoulder surgery - off it since few weeks, Will do tramadol PRN for moderate pain , IV Morphine 2 mg q 8 hours PRN for severe pain. Cautious about use -Work up- US duplex, Echocardiogram, Trop x 1 negative, CT chest left infiltrate likely related to PE, no signs of pneumonia HX OF DRUG ABUSE -Doing well on vivitrol. No abuse now. -Cautious about narcotic use DVT PROPHYLAXIS Lovenox therapeutic DISPOSITION Admit to telemetry
[2016-10-19] MEDS ORDERED: MoRPHine SULFATE 2 MG/ML CARP IV PRN (14:15)
[2016-10-19 14:20] VITALS: BP 122/82; PULSE 82; TEMP 36.4; O2SAT 96
--- NOTE | 2016-10-19 14:32 | History and Physical ---
History & Physical Date & Time of Service: Oct 19, 2016 at 14:13 Chief Complaint: Chest Pain Primary Care Physician: No Doctor, Assigned History of Present Illness This is a 25yo M with a PMH of depression, polysubstance abuse and R shoulder dislocation s/p surgical repair on 09/21/16 who presents with pleuritic chest pain and dyspnea for one day. Patient woke up today with severe pain on L side of chest, specifically L ribs that is aggravated by inspiration. Radiates upwards to L chest and neck. Has been taking small breaths to avoid pleuritic pain, so feels SOB as a result. Yesterday, patient experienced bilateral calf "soreness" that has since gone away. Complains of a dry cough but denies any fever, chills, lightheadedness, sputum production, wheezing or calf pain. After surgical repair of shoulder dislocation a month ago, patient states that he has been "up and walking around" but is not back to his full activity level. Denies any personal or family history of DVT, PE or clotting disorders. Of note, patient has a history of polysubstance abuse and has been on Suboxone and Vivitrol in the past. Stopped Vivitrol prior to surgery one month ago. In ED, patient was diagnosed with bilateral pulmonary emboli on CTA. Was started on heparin and given pain control. Past Medical/Surgical History Medical Problems: (1) Depression Status: Chronic (2) History of narcotic addiction Status: Chronic (3) Polysubstance abuse Status: Chronic Family History FH: anemia MOTHER Social History Smoking Status: Former Smoker (quit a few years ago) Smokeless Tobacco Use: Uses dip. Last used a few months ago. Alcohol Use: occasionally Drug Use: other (H/o heroin, cocaine, prescription pain meds. Denies current use. ) Housing status: lives with family Multi-Drug Resistant Organisms History of MDRO: No Allergies Coded Allergies: No Known Allergies (Unverified , 10/19/16) Home Medications Scheduled PRN Alprazolam (Alprazolam), 0.5 MG PO BID PRN for Anxiety Review of Systems Ten systems reviewed and negative except as noted in the HPI. Physical Exam Vital Signs Date Time Temp Pulse Resp B/P (MAP) Pulse Ox O2 Delivery O2 Flow Rate FiO2 10/19/16 13:20 100 16 117/81 10/19/16 12:15 92 16 127/84 97 Nasal Cannula 2.0 10/19/16 12:15 97 Nasal Cannula 2.0 10/19/16 11:52 99 Nasal Cannula 2.0 10/19/16 11:46 81 10/19/16 11:40 85 20 121/80 96 Room Air 10/19/16 09:52 36.4 79 18 116/78 100 Room Air General Appearance: + moderate distress (Grimaces during inspiration.) Head: normocephalic Eyes: + abnormal sclerae exam (bilateral icterus) ENT: normal ENT inspection, hearing grossly normal Neck: supple, no adenopathy, thyroid normal Respiratory/Chest: chest non-tender, no respiratory distress (on O2), no accessory muscle use, + decreased breath sounds (bilaterally) Cardiovascular: regular rate, rhythm, no murmur, normal peripheral pulses, + pertinent finding (Tender to palpation on L anteriolateral ribs) Abdomen/GI: normal bowel sounds, soft, no organomegaly Extremities/Musculoskelatal: normal inspection, no calf tenderness, normal capillary refill, no pedal edema Neurologic/Psych: no motor/sensory deficits, alert, normal mood/affect, oriented x 3 Skin: normal color Lymphatic: no adenopathy Diagnostics Laboratory Results Results Past 24 Hours Test 10/19/16 10:20 Range/Units White Blood Count 9.34 4.8-10.8 K/uL Red Blood Count 4.88 4.7-6.1 M/uL Hemoglobin 14.5 14.0-18.0 g/dL Hematocrit 43.0 42-52 % Mean Corpuscular Volume 88.1 80-100 fL Mean Corpuscular Hemoglobin 29.7 25-34 pg Mean Corpuscular Hemoglobin Concent 33.7 32-36 g/dl Platelet Count 273 130-400 K/uL Mean Platelet Volume 9.3 7.4-10.4 fL Neutrophils (%) (Auto) 59.9 % Lymphocytes (%) (Auto) 28.4 % Monocytes (%) (Auto) 10.1 % Eosinophils (%) (Auto) 1.3 % Basophils (%) (Auto) 0.1 % Neutrophils # (Auto) 5.60 1.4-6.5 K/uL Lymphocytes # (Auto) 2.65 1.2-3.4 K/uL Monocytes # (Auto) 0.94 0.11-0.59 K/uL Eosinophils # (Auto) 0.12 0-0.5 K/uL Basophils # (Auto) 0.01 0-0.2 K/uL RDW Standard Deviation 42.3 36.4-46.3 fL RDW Coefficient of Variation 13.1 11.5-14.5 % Immature Granulocyte % (Auto) 0.2 % Immature Granulocyte # (Auto) 0.02 0.00-0.02 K/uL Prothrombin Time 10.8 9.0-12.0 SECONDS Prothromb Time International Ratio 1.0 0.9-1.1 Activated Partial Thromboplast Time 28.9 21.0-31.0 SECONDS Partial Thromboplastin Ratio 1.1 D-Dimer 1810 0-500 ug/L FEU Sodium Level 135 136-145 mmol/L Potassium Level 3.7 3.5-5.1 mmol/L Chloride Level 103 98-107 mmol/L Carbon Dioxide Level 29 21-32 mmol/L Anion Gap 3.0 3-11 mmol/L Blood Urea Nitrogen 10 7-18 mg/dl Creatinine 1.00 0.60-1.40 mg/dl Est Creatinine Clear Calc Drug Dose 126.1 ml/min Estimated GFR () 122.4 Estimated GFR (Non- 105.6 BUN/Creatinine Ratio 9.8 10-20 Random Glucose 87 70-99 mg/dl Calcium Level 9.5 8.5-10.1 mg/dl Troponin I < 0.015 0-0.045 ng/ml C-Reactive Protein 0.66 0-0.29 mg/dl Diagnostic Radiology CXR (10/19/16): IMPRESSION: Patchy parenchymal infiltrate left lung base. Chest/thorax CTA (10/19/16): IMPRESSION: 1. Bilateral pulmonary emboli within the right upper lobe, right lower lobe, and left lower lobe. The right upper lobe pulmonary artery is involved, although primarily involvement segmental/subsegmental pulmonary arteries. Apparent mild flattening of the interventricular septum could raise concern for right heart strain. Correlate clinically. 2. Minimal nodular groundglass opacities in the right upper lobe, could relate to the presence of pulmonary emboli. 3. Left basilar atelectasis with small left pleural effusion. 4. Additional consolidation in the nondependent left lower lobe. Although this may relate to pulmonary emboli, dissection cannot be excluded. EKG Normal sinus rhythm with sinus arrhythmia Impression Assessment and Plan This is a 25yo M with a PMH of depression, polysubstance abuse and R shoulder dislocation s/p surgical repair on 09/21/16 who presents with pleuritic chest pain and dyspnea for one day and was found to have bilateral pulmonary embolisms. Bilateral Pulmonary Embolisms: -Vitals stable, L-sided pleuritic CP, dyspnea and SOB -Risk factors: Had shoulder surgery in past month but unlikely to cause bilateral PE Has been less active since surgery but not immobile -Work up: ECG with NSR, troponin negative x 1, CXR with left infiltrate but no clinical picture for PNA or infection, D-dimer elevated to 1810, Chest/thorax CTA with bilateral PEs (see above) -US venous dopplers, echo pending -Pulm consulted for further recs -Was started on therapeutic dose heparin in the ED but changed to Lovenox SQ -Discussed xarelto vs coumadin for discharge planning. SW consulted to help check insurance coverage -Consulted pain management for recs for pain control in the setting of h/o narcotics abuse. -Given tramadol and morphine 2mg Q8h PRN for pain control H/o drug abuse: -Heroin, cocaine,prescription pain meds in the past. Denies current use -Was on Suboxone 1.5 years ago. Then on vivitrol for 8 months until shoulder surgery 1 month ago -States that he was last on percocet surgery. Denies any narcotic use for the past 2 weeks Depression/anxiety: stable -Continue home meds DVT Ppx: on therapeutic Lovenox Code status: FULL PCP: Carolyn Dispo: Admit to [facility] Level of Care Telemetry Advanced Directives Existing Living Will: No Existing Power of Sensory Scientist: No Resuscitation Status FULL RESUSCITATION VTE Prophylaxis VTE Risk Assessment Done? Y/N: Yes Risk Level: High (diagnosed with bilat PEs. On therapeutic dose anticoagulation. ) Given or contraindicated: Enoxaparin (Lovenox)SQ
[2016-10-19] MEDS: TRAMADOL HCL 50 MG TAB PO PRN ×2 (15:06→20:43)
[2016-10-19 15:27] VITALS: BP 108/68; PULSE 84; TEMP 36.3; O2SAT 95
[2016-10-19] MEDS: ENOXAPARIN 100 MG/1ML SYR SQ SCH (16:06)
--- NOTE | 2016-10-19 16:11 | DIAGNOSTIC IMAGING REPORT ---
BILATERAL LOWER EXTREMITY VENOUS DOPPLER CLINICAL HISTORY: Pulmonary emboli. Calf pain. COMPARISON STUDY: No previous studies for comparison. TECHNIQUE: Sonography of the deep venous system of the bilateral lower extremities was performed. Compression and augmentation were evaluated. FINDINGS: The bilateral common femoral, superficial femoral and popliteal veins were compressible. Augmentation was normal. Flow was shown within the deep calf vessels. IMPRESSION: No evidence of deep venous thrombus within the bilateral lower extremities. Electronically signed by: Kaleb Murphy M.D. 10/19/2016 4:09 PM Dictated Date/Time: 10/19/2016 4:08 PM
[2016-10-19] MEDS: HYDROmorphone INJ 1 MG/ML SYR IV PRN ×2 (17:31→23:36)
[2016-10-19 19:45] VITALS: BP 105/67; PULSE 89; TEMP 36.8; O2SAT 97
[2016-10-19 23:33] VITALS: BP 112/72; PULSE 85; TEMP 36.9; O2SAT 98
[2016-10-19] MEDS: ALPRAZOLAM 0.5 MG TAB PO PRN (23:41)
[2016-10-19 23:59] VITALS: O2SAT 98
[2016-10-20] VITALS (9 sets, daily range): BP systolic 109–129; BP diastolic 69–83; PULSE 72–89; TEMP 36.5–37.1; O2SAT 94–98
[2016-10-20] MEDS: ENOXAPARIN 100 MG/1ML SYR SQ SCH (05:37)
[2016-10-20] MEDS: HYDROmorphone INJ 1 MG/ML SYR IV PRN (05:42)
--- NOTE | 2016-10-20 06:17 | Clinical Documentation Query ---
ROSAS Isaacs : CLINICAL DOCUMENTATION QUERY Patient is a 25 year old male admitted for evaluation and treatment of acute bilateral pulmonary emboli. This is in the setting of recent shoulder surgery and likely immobility postoperatively. Venous duplex of the bilateral legs was negative for thrombus/thrombi. No diagnostic radiology performed on upper extremities. As the pulmonary emboli must have originated somewhere, please provide your clinical opinion as to the most likely source of the PE's as this affects DRG assignment, risk of mortality, and associated severity of illness. Thank you. In your clinical opinion is this patient being managed for: ( ) Bilateral pulmonary emboli secondary to (likely/suspected/possible) DVT of unknown Origin/possibly left arm ( ) Other explanation of clinical findings (Please Explain) ( ) Unable to determine (Please Define) ( ) Need to Discuss ( ) Not Agree The medical record reflects the following clinical findings, treatment, and risk factors. Clinical Indicators: As above Treatment: Heparin to Lovenox, to oral anticoagulant Risk Factors: Surgery and minimally, L shoulder and arm immobility Please clarify and document your clinical opinion in the progress notes and discharge summary. Terms such as "probable", "suspected", "likely", "questionable", "possible", or "still to be ruled out" are acceptable. IF IN AGREEMENT, YOU MUST DOCUMENT ABOVE DIAGNOSTIC STATEMENT IN DAILY PROGRESS NOTES AND DISCHARGE SUMMARY. This document is not part of the patient's record. Thank You, Felix Henry, RN [phone]
[2016-10-20 06:43] LABS: MEAN CELL VOLUME 88.9 fL (80-100); MEAN CORPUSCULAR HEMOGLOBIN 30.7 pg (25-34); MEAN CORPUSCULAR HGB CONC 34.5 g/dl (32-36); MEAN PLATELET VOLUME 8.9 fL (7.4-10.4); PLATELET COUNT 235 K/uL (130-400); WHITE BLOOD COUNT 8.42 K/uL (4.8-10.8)
[2016-10-20 06:54] LABS: PARTIAL THROMBOPLASTIN RATIO 1.3
[2016-10-20 07:18] LABS: BUN/CREATININE RATIO 10.2 (10-20); CALCIUM 8.8 mg/dl (8.5-10.1); CREATININE 0.93 mg/dl (0.60-1.40)
[2016-10-20] MEDS: VENLAFAXINE HCL XR 37.5 MG CAPXR PO SCH (07:52)
[2016-10-20] MEDS ORDERED: PERFLUTREN LIPID MICROSPHERE (DEFINITY) IV ONE (08:47)
[2016-10-20] MEDS ORDERED: NALOXONE HCL 0.4 MG/1 ML VIAL/CARP IV PRN (10:15)
[2016-10-20] MEDS: SODIUM CHLORIDE 0.9% 1000ML 1,000 ML IV SCH (10:15)
--- NOTE | 2016-10-20 10:19 | Pain Management Consultation ---
Pain Management Consultation Date of Consultation Oct 20, 2016. Reason for Consultation This is to the pain management. Pain Location 1 - Left chest pleurtic pain History Mani Corbin III is a 25-year-old male admitted to [facility] with diagnoses of left pulmonary embolus. He underwent right shoulder labrum repair possibly one month ago. He reports experiencing left-sided pleuritic type chest pain yesterday without any reported inciting event. He does not have risk factors for hypercoagulable state and was performing activities required for daily living after undergoing his right shoulder labrum repair. He reports sharp, shooting pain in the left mid chest with inspiration and coughing. Pain is described as sharp and stabbing. Denies spontaneous pain. Denies hemoptysis. He has a previous history of polysubstance abuse, opioid misuse, and dependence. Previously, he admits to use of multiple prescribed analgesics as well as illicit substances including heroin. He has been into rehabilitation twice and was on Suboxone up until approximately a year ago when he was on intramuscular Vivitrol. He reports stopping the Vivitrol a month prior to his shoulder surgery and has not resumed it since. He was discharged after surgery on oxycodone for her shoulder pain. Since his discharge, he denies using any illicit substances or any other opioids. Consultation was requested to assist in managing his pleuritic pain due to pulmonary embolus. Past Medical/Surgical History (1) Depression (2) History of narcotic addiction (3) Polysubstance abuse (4) Bilateral pulmonary embolism Family History FH: anemia MOTHER Social / Work History Smokeless Tobacco Use: Uses dip. Last used a few months ago. Alcohol Use: occasionally Drug Use: marijuana, previous drug use / rehab Marital Status: single Housing Status: lives with family Allergies Coded Allergies: No Known Allergies (Unverified , 10/19/16) Medications Current Inpatient Medications Medications (Trade) Dose Ordered Sig/Saud Route Start Time Stop Time Status Last Admin Dose Admin Ioversol (Optiray 320) 125 ml UD PRN IV 10/19/16 11:00 10/23/16 10:59 Acetaminophen (Tylenol Tab) 650 mg Q4H PRN PO 10/19/16 12:45 11/18/16 12:44 Ondansetron HCl (Zofran Inj) 4 mg Q6H PRN IV 10/19/16 12:45 11/18/16 12:44 Alprazolam (Xanax Tab) 0.5 mg BID PRN PO 10/19/16 14:00 11/18/16 13:59 10/19/16 23:41 0.5 MG Venlafaxine HCl (effeXOR EXTENDED REL CAP) 37.5 mg QAM PO 10/20/16 09:00 11/19/16 08:59 10/20/16 07:52 37.5 MG Tramadol HCl (Ultram Tab) 50 mg Q4H PRN PO 10/19/16 14:15 11/18/16 14:14 10/19/16 20:43 50 MG Enoxaparin Sodium (Lovenox Inj) 90 mg Q12@0600,1800 SQ 10/19/16 15:00 11/18/16 14:59 10/20/16 05:37 90 MG Hydromorphone HCl (Dilaudid Inj) 1 mg Q6H PRN IV 10/19/16 17:15 11/02/16 17:14 10/20/16 05:42 1 MG Review of Systems Denies any recent history of fever, night sweats, unexplained weight loss, or constitutional symptoms. Otherwise, 8 point review of system has been reported to be negative. Physical Exam Height & Weight: Height 6 feet, 0.00 inches. Weight 91.600 (Kilograms) 201 (Pounds) Last Vital Signs Documentation Date Time Temp Pulse Resp B/P (MAP) Pulse Ox O2 Delivery O2 Flow Rate FiO2 10/20/16 04:00 98 Room Air 10/20/16 03:44 36.7 88 18 109/75 (86) 10/19/16 12:15 2.0 Exam: Mr. Corbin is alert and oriented. Mood and affect are appropriate. Short-term and long-term memory is intact. Sensorium is clear. He appears to be in minimal pain with normal inspiration. He complains of pain with deep inspiration. Palpation over the left chest does not produce pain. Exam is otherwise unremarkable. Laboratory Laboratory Results (Last CBC): 10/20/16 06:[address]: reports reviewed CT Findings CT ANGIOGRAPHY: TECHNIQUE: Multidetector CT angiography of the chest was performed after administration of intravenous contrast. 3-D volumetric and maximum intensity projection (MIP) images were subsequently reconstructed for review. IV contrast: 94 mL of Optiray 320. A dose lowering technique was used consistent with the principles of ALARA (as low as reasonably achievable). COMPARISON: 05/08/2013. CT DOSE (mGy.cm): The estimated cumulative dose is 380.58 mGy.cm. FINDINGS: Conference Specialist topogram: Unremarkable. Pulmonary vasculature: The study is adequate for assessment of the pulmonary vascular tree. Filling defects within the right upper lobe pulmonary artery and distal segmental right upper lobe arteries as well as subsegmental pulmonary arteries of the right lower lobe. Subsegmental emboli in the left lower lobe may also be present. Main [place] Drug Monitoring Program Search Results: patient reviewed within database Drug Monitoring Findings: No patient information in PDMP database Opioid Risk Assessment Risk assessment performed, high risk identified Assessment 1. Acute pulmonary emboli 2. History of polysubstance abuse Recommendations 1. Discontinue tramadol. 2. Change to IV hydromorphone at low doses and more frequently. 3. Tapentadol short acting as scheduled dosing for 48 hrs. Monitor for serotonin syndrome with alvaro of SSRI or SNRI. 4. If tapentadol is not covered by insurance after discharge, recommend hydrocodone 5/325 as an outpatient. 5. Recommend resumption of Vivitrol 24 hours after last opiate use. 6. Recommend medrol dose pack for anti inflammatory effect for areas of infarct form emboli.
[2016-10-20] MEDS ORDERED: HYDROmorphone INJ 1 MG/ML SYR IV ONE (10:21)
[2016-10-20] MEDS ORDERED: METHYLPREDNISOLONE 4MG TAB, 6 DAY TAPER PO SCH (10:30)
--- NOTE | 2016-10-20 10:40 | ECHOCARDIOGRAM REPORT ---
*NOTICE TO RECEIVING DEMOCRAT AGENCY This information is strictly Confidential and protected under [place] law. [place] law prohibits you from making any further disclosure of this information unless further disclosure is expressly permitted by the written consent of the person to whom it pertains or is authorized by law. A general authorization for the release of medical or other information is not sufficient for this purpose. Hospital accepts no responsibility if the information is made available to any other person, INCLUDING THE PATIENT. Interpretation Summary * Name: HARINI GHOTRA III Study Date: 10/20/2016 07:56 AM BP: 109/75 mmHg * Patient Location: C.2T\S\S239\S\2 HR: 88 * : 1990 (M/d/yyyy) Gender: Male Height: 72 in * Age: 25 yrs Ethnicity: CA Weight: 202 lb * Ordering Physician: Monique Jha * Referring Physician: Self, Referred * Performed By: Adis Brandt RCS * * Reason For Study: B/L PE's * BSA: 2.1 m2 * -- Conclusions -- * Normal LV chamber size and wall thickness. * Normal LV systolic function, EF 55-60%. * No segmental left ventricular wall motion abnormalities are noted. * Normal diastolic function. * The right ventricular cavity size is normal (basal dimension <4.2 cm in right ventricular apical 4-chamber view). The right ventricular systolic function is normal as assessed by tricuspid annular plane systolic excursion (TAPSE) (normal >1.5 cm). * No significant valvular pathology. Procedure Details * A complete two-dimensional transthoracic echocardiogram was performed (2D, M-mode, Doppler and color flow Doppler). * A contrast injection of Definity was performed to improve assessment for apical thrombus. * Contrast was injected into an intravenous site in the right arm. * One vial of Definity ultrasound contrast was diluted in normal saline to a total volume of 10 ml. A total of '2' ml of solution was administered during imaging. * Lot # [id number] of Definity utilized for procedure. * Expiration date [id number]. * The attending nurse who injected the contrast agent was Maikel Gil RN. Left Ventricle * The left ventricle is normal in size. * There is normal left ventricular wall thickness. * Ejection Fraction = 55-60%. * Left ventricular systolic function is normal. * No segmental left ventricular wall motion abnormalities are noted. * The left ventricular wall motion is normal. Right Ventricle * The right ventricular cavity size is normal (basal dimension <4.2 cm in right ventricular apical 4-chamber view). * The right ventricular systolic function is normal as assessed by tricuspid annular plane systolic excursion (TAPSE) (normal >1.5 cm). Atria * The left atrial size is normal. * Right atrial size is normal. * No ASD detected; PFO is not assessed. Mitral Valve * The mitral valve is normal in structure and function. Tricuspid Valve * The tricuspid valve is normal in structure and function. Aortic Valve * The aortic valve is normal in structure and function. Pulmonic Valve * The pulmonary valve is not well seen, but the Doppler examination is normal without significant regurgitation or stenosis. Great Vessels * The aortic root and proximal ascending aorta are normal sized. Pericardium/Pleural * There is no pericardial effusion. Left Ventricular Diastolic Function * Pulse wave TDI of the anterior and posterior mitral annulas demonstrates normal LV relaxation MMode 2D Measurements and Calculations IVSd 1.0 cm IVSs 1.3 cm LVIDd 5.1 cm LVIDs 3.5 cm LVPWd 0.85 cm LVPWs 1.4 cm IVS/LVPW 1.2 FS 31.0 % EDV(Teich) 124.0 ml ESV(Teich) 51.6 ml EF(Teich) 58.4 % EDV(cubed) 132.9 ml ESV(cubed) 43.6 ml EF(cubed) 67.2 % % IVS thick 25.8 % % LVPW thick 63.5 % LV mass(C)d 176.0 grams LV mass(C)dI 82.3 grams/m\S\2 LV mass(C)s 165.9 grams LV mass(C)sI 77.5 grams/m\S\2 CO(Teich) 5.7 l/min CI(Teich) 2.7 l/min/m\S\2 SV(Teich) 72.4 ml SI(Teich) 33.9 ml/m\S\2 CO(cubed) 7.1 l/min CI(cubed) 3.3 l/min/m\S\2 SV(cubed) 89.3 ml SI(cubed) 41.7 ml/m\S\2 Ao root diam 3.5 cm Ao root area 9.4 cm\S\2 ACS 1.7 cm LA dimension 3.3 cm asc Aorta Diam 2.8 cm LA/Ao 0.96 LVAd ap4 45.1 cm\S\2 LVLd ap4 10.3 cm EDV(MOD-sp4) 164.0 ml LVAs ap4 26.1 cm\S\2 LVLs ap4 8.7 cm ESV(MOD-sp4) 65.0 ml EF(MOD-sp4) 60.4 % LVAd ap2 38.0 cm\S\2 LVLd ap2 10.5 cm EDV(MOD-sp2) 118.0 ml LVAs ap2 21.7 cm\S\2 LVLs ap2 9.1 cm ESV(MOD-sp2) 46.0 ml EF(MOD-sp2) 61.0 % CO(MOD-sp4) 7.8 l/min CI(MOD-sp4) 3.7 l/min/m\S\2 SV(MOD-sp4) 99.0 ml SI(MOD-sp4) 46.3 ml/m\S\2 CO(MOD-sp2) 5.7 l/min CI(MOD-sp2) 2.7 l/min/m\S\2 SV(MOD-sp2) 72.0 ml SI(MOD-sp2) 33.7 ml/m\S\2 Doppler Measurements and Calculations MV E max reuben 66.3 cm/sec MV A max reuben 36.6 cm/sec MV E/A 1.8 MV P1/2t max reuben 74.7 cm/sec MV P1/2t 78.7 msec MVA(P1/2t) 2.8 cm\S\2 MV dec slope 277.7 cm/sec\S\2 MV dec time 0.14 sec Ao V2 max 79.9 cm/sec Ao max PG 2.6 mmHg Ao max PG (full) 0.98 mmHg LV V1 max PG 1.6 mmHg LV V1 max 62.9 cm/sec PA V2 max 96.4 cm/sec PA max PG 3.7 mmHg PI max reuben 191.6 cm/sec PI max PG 14.7 mmHg PI dec slope 152.5 cm/sec\S\2 PI P1/2t 368.0 msec TR max reuben 203.5 cm/sec
[2016-10-20] MEDS ORDERED: KETOROLAC TROMETHAMINE 30 MG/ML VIAL IV PRN (11:00)
[2016-10-20] MEDS ORDERED: KETOROLAC TROMETHAMINE 30 MG/ML VIAL ONE (11:17)
[2016-10-20] MEDS ORDERED: SODIUM CHLORIDE 0.9% 1000ML 1,000 ML IV SCH (11:30)
[2016-10-20] MEDS ORDERED: KETOROLAC TROMETHAMINE 30 MG/ML VIAL IV STA (11:44)
--- NOTE | 2016-10-20 11:44 | Pulmonary Consultation ---
History General Date of Service: Oct 20, 2016. Stated Complaint: Bilateral Pulmonary Embolism HPI The patient is a 25 year old male who presents to [facility] with complaints of Bilateral Pulmonary Embolism. The patient's primary care provider is No Doctor, Assigned. The patient is a 25-year-old male admitted for pulmonary embolism. The patient has a past medical history significant for: Depression, polysubstance abuse and multiple right shoulder dislocations who recently underwent a right shoulder Latarjet procedure on 09/21/2016. The patient woke up on the day of his admission with severe left-sided chest pain which was aggravated by deep inspiration, aggressive movement and minimally by palpation. He notes that this pain radiates towards his shoulder and is associated with shortness of breath. The patient currently denies: Fever, chills, cough, classic cardiac chest pain, lightheadedness, productive sputum or recent weight loss/unintentional. He also denies a personal history or family history of DVT/pulmonary emboli, cerebral vascular events, unintentional spontaneous abortions or other clotting disorders. Patient also denies any recent history of IV drug use. His last IV injection he notes was greater than 2 years ago. EKG: Normal sinus rhythm rate of 75 no signs of acute ischemia Cardiac Echo (10/20/16) LV: EF=55-60% RV: TAPSE > 1.5cm Radiology: CXR: minimal consolidations of the LLL with costo-phrenic blunting DVT: no DVT noted in the bilateral lower extremities CTA Chest compared to CT ABD (06/13/15) & CTA Chest (05/18/13) bilateral pulmonary emboli, flattening of the cardiac interventricular septum left basilar atelectasis, small left sided pleural effusion consolidation of the non-dependent lateral LLL (infarction vs. dissection ) Treatment: 1) Lovenox 90mg BID Historian: patient, EMS Review of Systems Constitutional: reports: as stated in HPI Eyes: reports: no symptoms ENT: reports: no symptoms Cardiovascular: reports: as stated in HPI Respiratory: reports: as stated in HPI Gastrointestinal: reports: no symptoms Genitourinary - Male: reports: no symptoms Musculoskeletal: reports: as stated in HPI Integumentary: reports: no symptoms Neurologic: reports: no symptoms Psychiatric: reports: no symptoms Endocrine: no symptoms Hematologic / Lymphatic: no symptoms Allergic / Immunologic: no symptoms Past Medical History Past Medical History: (1) Depression (2) History of narcotic addiction (3) Polysubstance abuse: drug abuse with heroin, benzodiazepines, and cocaine (4) Anxiety/Panic Attacks (5) Anterior-Inferior right shoulder disclocation with re-dislocation Past Surgical History: (1) Tight Shoulder Surgery x 3 Bankart Repair Arthroscopic debridement, Bankart repair, anterior rotator interval closure Latarjet right shoulder procedure 09/21/16 Family History FH: anemia MOTHER Anxiety Anemia Social History Smoking Status: Former Smoker (quit a few years ago) Smokeless Tobacco Use: Uses dip. Last used a few months ago. Alcohol Use: occasionally Drug Use: other (H/o heroin, cocaine, prescription pain meds. Denies current use. ) Housing status: lives with family Hx Tobacco Use In Past Year?: No Smoking Status: Former Smoker (quit a few years ago) Marital status: single Housing status: lives with family History of MDRO History of MDRO: No Allergies Coded Allergies: No Known Allergies (Unverified , 10/19/16) Current Medications Reported Home Medications Medications Dose Route/Sig Max Daily Dose Days Date Category Alprazolam 0.5 Mg Tab 0.5 Mg PO BID PRN 09/19/16 Reported Physical Physical Exam Vital Signs: Date Time Temp Pulse Resp B/P (MAP) Pulse Ox O2 Delivery O2 Flow Rate FiO2 10/20/16 04:00 98 Room Air 10/20/16 03:44 36.7 88 18 109/75 (86) 96 Room Air 10/19/16 23:59 98 Room Air 10/19/16 23:33 36.9 85 22 112/72 (85) 98 Room Air 10/19/16 20:00 Room Air 10/19/16 19:45 36.8 89 22 105/67 (80) 97 Room Air 10/19/16 16:57 Room Air 10/19/16 15:27 36.3 84 22 108/68 (81) 95 Room Air 10/19/16 14:20 36.4 82 16 122/82 (95) 96 Room Air 10/19/16 13:20 100 16 117/81 10/19/16 12:15 92 16 127/84 97 Nasal Cannula 2.0 10/19/16 12:15 97 Nasal Cannula 2.0 10/19/16 11:52 99 Nasal Cannula 2.0 10/19/16 11:46 81 10/19/16 11:40 85 20 121/80 96 Room Air General Appearance: NO APPARENT DISTRESS, uncomfortable Head: NORMOCEPHALIC, ATRAUMATIC Eyes: PERRLA, NO DISCHARGE, EOMI, SCLERAE NORMAL, CONJUNCTIVAE NORMAL ENT: NORMAL EAR EXAM, NORMAL NASAL EXAM, NORMAL MOUTH EXAM, NORMAL THROAT EXAM , NORMAL DENTAL EXAM Neck: NORMAL RANGE OF MOTION, NO TENDERNESS, TRACHEA MIDLINE Respiratory: other (decreased inspiratory effort, notable rhonchi with decreased breath sounds greatest on the right hemithorax) Cardiovasular: other (tachycardic, no murmurs rubs or gallops appreciated with regular rhythm) Abdomen: NON TENDER, NORMAL BOWEL SOUNDS, NO REBOUND, NO MASSES, NO GUARDING, NO ORGANOMEGALY, NORMAL RECTAL EXAM Genitourinary - Male: EXTERNAL GENITALIA NORMAL Back: NORMAL INSPECTION, NO MIDLINE TENDERNESS, NO CVA TENDERNESS, NO PARAVERTEBRAL TTP Upper Extremities: other (tender, no eythema mild swelling ) Lower Extremities: NO EDEMA, NO DEFORMITY, NORMAL ROM Pulses: carotid (R) (2+), carotid (L) (2+), radial (R) (2+), radial (L) (2+), posterior tibial (R) (2+), posterior tibial (L) (2+) Neuro: ALERT, ORIENTED x 3, NORMAL MOTOR EXAM, NORMAL SENSATION, NORMAL CEREBELLAR EXAM Reflexes: biceps (R) (2+), bicpes (L) (2+), patellar (R) (2+), patellar (L) (2+ ) Babinski Testing: right (downgoing), left (downgoing) Psychiatric: NORMAL AFFECT, NO SUICIDAL IDEATION, CONTRACTS FOR SAFETY Diagnostics Labs Results Past 24 Hours Test 10/20/16 06:30 Range/Units White Blood Count 8.42 4.8-10.8 K/uL Red Blood Count 4.50 4.7-6.1 M/uL Hemoglobin 13.8 14.0-18.0 g/dL Hematocrit 40.0 42-52 % Mean Corpuscular Volume 88.9 80-100 fL Mean Corpuscular Hemoglobin 30.7 25-34 pg Mean Corpuscular Hemoglobin Concent 34.5 32-36 g/dl RDW Standard Deviation 42.6 36.4-46.3 fL RDW Coefficient of Variation 13.0 11.5-14.5 % Platelet Count 235 130-400 K/uL Mean Platelet Volume 8.9 7.4-10.4 fL Activated Partial Thromboplast Time 35.0 21.0-31.0 SECONDS Partial Thromboplastin Ratio 1.3 Sodium Level 139 136-145 mmol/L Potassium Level 4.0 3.5-5.1 mmol/L Chloride Level 103 98-107 mmol/L Carbon Dioxide Level 32 21-32 mmol/L Anion Gap 4.0 3-11 mmol/L Blood Urea Nitrogen 9 7-18 mg/dl Creatinine 0.93 0.60-1.40 mg/dl Est Creatinine Clear Calc Drug Dose 135.6 ml/min Estimated GFR () 133.6 Estimated GFR (Non- 115.3 BUN/Creatinine Ratio 10.2 10-20 Random Glucose 81 70-99 mg/dl Calcium Level 8.8 8.5-10.1 mg/dl Diagnostic Radiology Radiology: CXR: minimal consolidations of the LLL with costo-phrenic blunting DVT: no DVT noted in the bilateral lower extremities CTA Chest compared to CT ABD (06/13/15) & CTA Chest (05/18/13) bilateral pulmonary emboli, flattening of the cardiac interventricular septum left basilar atelectasis, small left sided pleural effusion consolidation of the non-dependent lateral LLL (infarction vs. dissection) EKG Interpretation: NORMAL EKG Impression Assessment and Plan 25-year-old male admitted with poorly embolism: #1 pulmonary embolism: Didn't extensive literature really view of patient's most recent surgical intervention/Latarjet procedure: There is no definitive case reports or analysis suggesting increased risk of DVT leading to pulmonary embolism. There is multiple case reports suggesting shoulder arthroscopy leading to DVT and pulmonary embolism. I also reviewed the CT angiogram performed with radiologist to determine if there were signs of DVT/obstruction based off the flow pattern in the subclavian vessel and no determination could be made. At this time I suggest we move forward and I will order a ultrasound of the right upper extremity. Also suggest we initiate Xarelto therapy or Coumadin depending on patient's insurance coverage. At this time until his insurance issues can be worked out Lovenox isn't appropriate treatment. #2 chest pain: Patient's chest pain is most likely associated with pleurisy based off the CT images as well as his history. I will start the patient on IV Toradol at this time.
[2016-10-20] MEDS ORDERED: KETOROLAC TROMETHAMINE 15 MG/ML VIAL IV PRN (11:45)
[2016-10-20] MEDS: TAPENTADOL HCL 50 MG TAB PO PRN ×2 (12:37→19:30)
[2016-10-20] MEDS: METHYLPREDNISOLONE 4 MG TAB PO SCH ×2 (12:38→17:42)
[2016-10-20] MEDS ORDERED: NURSING VERBAL MED ORDER ONE ×2 (14:00→14:45)
--- NOTE | 2016-10-20 14:38 | DIAGNOSTIC IMAGING REPORT ---
RIGHT UPPER EXTREMITY VENOUS DOPPLER ULTRASOUND CLINICAL HISTORY: Pulmonary embolism. COMPARISON STUDY: No previous studies for comparison. FINDINGS: No venous thrombus is identified within the right internal jugular, axillary, brachial, basilic, radial, ulnar or cephalic veins. A catheter within a vein of the right antecubital fossa is incidentally noted. There is no adjacent thrombus. IMPRESSION: No deep venous thrombus within the right upper extremity. Electronically signed by: Kaleb Murphy M.D. 10/20/2016 2:37 PM Dictated Date/Time: 10/20/2016 2:26 PM
[2016-10-20] MEDS: HYDROmorphone HCL 0.5MG/ML 50 ML CASSETTE IV PRN ×2 (15:17→18:52)
[2016-10-20] MEDS: LOCK-OUT PCA TITRATION SCH ×2 (15:43→22:26)
--- NOTE | 2016-10-20 15:55 | Progress Note ---
Medicine Progress Note Date & Time of Visit: Oct 20, 2016 at 15:50. (Monique Jha, P.A.-C.) Subjective Patient with continued severe, 8/10 pleuritic chest pain. States that pain is worse with inspiration over L anteriolateral ribs. Is able to move around slowly but any reaching movement exacerbates pain. Feels SOB as a result of taking shallow breaths to avoid pleuritic pain. Denies any cough, hemoptysis, palpitations, calf pain, pain in his extremities. Is tolerating food and water without a problem. (Monique Jha, P.A.-C.) Objective Last 8 Hrs Date Time Temp Pulse Resp B/P (MAP) Pulse Ox O2 Delivery O2 Flow Rate FiO2 10/20/16 15:29 37.1 88 18 129/71 (90) 94 Room Air 10/20/16 14:30 Room Air 10/20/16 14:28 36.5 89 16 123/83 (96) 96 10/20/16 12:00 Room Air 10/20/16 10:55 36.7 89 20 122/82 (95) 96 Room Air 10/20/16 08:00 Room Air Physical Exam: General Appearance: WD/WN, mild distress Head: normocephalic, atraumatic Eyes: normal inspection, PERRL, scleral injection still present Neck: supple, no JVD, no adenopathy Respiratory/Chest: breath sounds decreased on auscultation. No wheezes, rales or rhonci. No respiratory distress or accessory muscle use Cardiovascular: regular rate, rhythm, no murmur, normal peripheral pulses Abdomen/GI: normal bowel sounds, soft, non-tender to palpation Extremities/Musculoskelatal: normal inspection, no calf tenderness, normal capillary refill, no pedal edema Neurologic/Psych: alert, normal mood/affect, oriented x 3 Skin: normal color, warm/dry Laboratory Results: Last 24 Hours Test 10/20/16 06:30 White Blood Count 8.42 K/uL Red Blood Count 4.50 M/uL Hemoglobin 13.8 g/dL Hematocrit 40.0 % Mean Corpuscular Volume 88.9 fL Mean Corpuscular Hemoglobin 30.7 pg Mean Corpuscular Hemoglobin Concent 34.5 g/dl RDW Standard Deviation 42.6 fL RDW Coefficient of Variation 13.0 % Platelet Count 235 K/uL Mean Platelet Volume 8.9 fL Activated Partial Thromboplast Time 35.0 SECONDS Partial Thromboplastin Ratio 1.3 Sodium Level 139 mmol/L Potassium Level 4.0 mmol/L Chloride Level 103 mmol/L Carbon Dioxide Level 32 mmol/L Anion Gap 4.0 mmol/L Blood Urea Nitrogen 9 mg/dl Creatinine 0.93 mg/dl Est Creatinine Clear Calc Drug Dose 135.6 ml/min Estimated GFR () 133.6 Estimated GFR (Non- 115.3 BUN/Creatinine Ratio 10.2 Random Glucose 81 mg/dl Calcium Level 8.8 mg/dl Diagnostic Imaging: B/l Venous doppler: IMPRESSION: No evidence of deep venous thrombus within the bilateral lower extremities. RUE venous doppler: IMPRESSION: No deep venous thrombus within the right upper extremity. RUQ Echo: There is normal left ventricular wall thickness. Ejection Fraction = 55-60%. No segmental left ventricular wall motion abnormalities are noted. No valve abnormalities noted. (Monique Jha ., P.A.-C.) Assessment & Plan This is a 25yo M with a PMH of depression, polysubstance abuse and R shoulder dislocation s/p surgical repair on 09/21/16 who presents with pleuritic chest pain and dyspnea for one day and was found to have bilateral pulmonary embolisms. Bilateral Pulmonary Embolisms: -Vitals stable, L-sided pleuritic CP, dyspnea and SOB -Risk factors: Had shoulder surgery in past month but unlikely to cause bilateral PE Has been less active since surgery but not immobile -Work up: ECG with NSR, troponin negative x 1, CXR with left infiltrate but no clinical picture for PNA or infection, D-dimer elevated to 1810, Chest/thorax CTA with bilateral PEs (see above) -US venous doppler and echo normal -Per pulm recs, -R upper extremity US was ordered to look for embolus. Results did not show evidence of a DVT. -Toradol started for pleuritic pain -Per pain management, -PO Nucynta started for a less addictive narcotic option -Due to potential risk of serotonin syndrome in combination with SNRI, started in-patient for monitoring -Will be transitioned from Lovenox to Xarelto this evening. Per SW, pt's insurance will fully cover prescription H/o drug abuse: -Heroin, cocaine,prescription pain meds in the past. Denies current use -Was on Suboxone 1.5 years ago. Then on vivitrol for 8 months until shoulder surgery 1 month ago -States that he was last on percocet surgery. Denies any narcotic use for the past 2 weeks -Instructed to follow-up with out-pt pain management doctor after d/c to resume vivitrol Depression/anxiety: stable -Continue home meds DVT Ppx: on therapeutic Lovenox Code status: FULL PCP: Carolyn Dispo: On med surg. Potential discharge tomorrow Current Inpatient Medications: Current Inpatient Medications Medications (Trade) Dose Ordered Sig/Saud Route Start Time Stop Time Status Last Admin Dose Admin Ioversol (Optiray 320) 125 ml UD PRN IV 10/19/16 11:00 10/23/16 10:59 Acetaminophen (Tylenol Tab) 650 mg Q4H PRN PO 10/19/16 12:45 11/18/16 12:44 Ondansetron HCl (Zofran Inj) 4 mg Q6H PRN IV 10/19/16 12:45 11/18/16 12:44 Alprazolam (Xanax Tab) 0.5 mg BID PRN PO 10/19/16 14:00 11/18/16 13:59 10/19/16 23:41 0.5 MG Venlafaxine HCl (effeXOR EXTENDED REL CAP) 37.5 mg QAM PO 10/20/16 09:00 11/19/16 08:59 10/20/16 07:52 37.5 MG Tapentadol (Nucynta Tab) 50 mg Q6H PRN PO 10/20/16 10:15 11/19/16 10:14 10/20/16 12:37 50 MG Naloxone HCl (Narcan Inj) 0.1 mg Q5M PRN IV 10/20/16 10:15 11/19/16 10:14 Miscellaneous Information (Lock-Out METAL GAUGE MAKER Titration) 1 ea QS N/A 10/20/16 16:00 11/03/16 15:59 Hydromorphone HCl (Dilaudid Machining Department Supervisor) 25 mg PRN PRN IV 10/20/16 10:15 11/03/16 10:14 Future hold 10/20/16 15:17 25 MG Docusate Sodium (coLACE CAP) 100 mg BID PO 10/20/16 21:00 11/19/16 20:59 Sodium Chloride 1,000 ml @ 15 mls/hr Q24H IV 10/20/16 10:15 11/19/16 10:14 Methylprednisolone (Medrol Tab) 8 mg 07,21 PO 10/20/16 21:00 10/20/16 21:01 Methylprednisolone (Medrol Tab) 8 mg 13,18 PO 10/20/16 13:00 10/20/16 18:01 10/20/16 12:38 8 MG Methylprednisolone (Medrol Tab) 4 mg 07,13,18 PO 10/21/16 07:00 10/21/16 18:01 Methylprednisolone (Medrol Tab) 8 mg HS PO 10/21/16 21:00 10/21/16 21:01 Methylprednisolone (Medrol Tab) 4 mg 07,13,18,21 PO 10/22/16 07:00 10/22/16 21:01 Methylprednisolone (Medrol Tab) 4 mg 07,13,21 PO 10/23/16 07:00 10/23/16 21:01 Methylprednisolone (Medrol Tab) 4 mg 07,21 PO 10/24/16 07:00 10/24/16 21:01 Methylprednisolone (Medrol Tab) 4 mg 07 PO 10/25/16 07:00 10/25/16 07:01 Rivaroxaban (Xarelto Tab) 15 mg BIDM PO 10/20/16 16:45 11/19/16 16:44 Sodium Chloride 1,000 ml @ 75 mls/hr [id number] IV 10/20/16 11:30 10/21/16 01:07 10/20/16 12:37 75 MLS/HR Ketorolac Tromethamine (Toradol Inj) 15 mg Q6H PRN IV 10/20/16 11:45 10/22/16 14:00 (Monique Jha, P.A.-C.) ATTENDING ADDENDUM care coordinated with BIJU Jha please refer to her notes for full details, I agree with her notes patient seen and examined, records reviewed by myself as well on exam, patient seen resting in bed, comfortable RN informed BIJU Jha that patient was expressing desire to leave talked to patient at bedside with BIJU Jha at bedside states he is confused with the plan of care, and he is still having significant chest pain, left lower lobe region, worse with inspiration explained plan of care with patient including pain management- he then agreed and was comfortable with plan of care denies cough, hemoptysis, dizziness no other symptoms VS noted and reviewed oriented x 3 , not in distress, speaks in sentences with no effort nor accessory muscle use normal rate, regular rhythm, no murmurs clear breath sounds bilaterally non distended, soft, nontender no bipedal edema, erythema, warmth no neuro deficits WBC 8.4 Crea 0.93 ASSESSMENT/PLAN> BILATERAL PULMONARY EMBOLISM - risk factor: recent right shoulder surgery - BP stable, not hypoxic still with significant pleuritic chest pain - Lovenox transitioned to Xarelto appreciate Pulm input - Pain Management service consulted recommend Toradol, Medrol dosepak, Nucynta and Dilaudid METAL GAUGE MAKER pump will continue to monitor HISTORY OF NARCOTIC DEPENDENCE - pain management service consulted other diagnoses and plan of care as per BIJU Jha's notes Rajeev Pearl MD (Rajeev Pearl MD)
[2016-10-20] MEDS: RIVAROXABAN TAB 15 MG TAB PO SCH (17:41)
[2016-10-20] MEDS: DOCUSATE SODIUM 100 MG CAP PO SCH (19:31)
[2016-10-20] MEDS ORDERED: METHYLPREDNISOLONE 4 MG TAB PO SCH (21:00)
[2016-10-20] MEDS: ALPRAZOLAM 0.5 MG TAB PO PRN (22:17)
[2016-10-21] MEDS: SODIUM CHLORIDE 0.9% 1000ML 1,000 ML IV SCH ×2 (01:37→14:46)
[2016-10-21 03:25] VITALS: BP 109/67; PULSE 72; TEMP 37.1; O2SAT 93
[2016-10-21] MEDS: METHYLPREDNISOLONE 4 MG TAB PO SCH ×3 (06:34→17:58)
[2016-10-21] MEDS: HYDROmorphone HCL 0.5MG/ML 50 ML CASSETTE IV PRN ×3 (06:51→22:48)
[2016-10-21 06:54] VITALS: BP 113/67; PULSE 66; TEMP 37; O2SAT 94
[2016-10-21] MEDS: LOCK-OUT PCA TITRATION SCH ×3 (08:00→22:50)
[2016-10-21 08:13] LABS: HEMATOCRIT 40.6 % (42-52); MEAN CELL VOLUME 87.9 fL (80-100); MEAN CORPUSCULAR HEMOGLOBIN 30.3 pg (25-34); MEAN CORPUSCULAR HGB CONC 34.5 g/dl (32-36); MEAN PLATELET VOLUME 9.4 fL (7.4-10.4); PLATELET COUNT 266 K/uL (130-400); RED BLOOD COUNT 4.62 M/uL (4.7-6.1); WHITE BLOOD COUNT 11.62 K/uL (4.8-10.8)
[2016-10-21 08:32] LABS: PARTIAL THROMBOPLASTIN RATIO 1.2
[2016-10-21 08:49] LABS: BUN/CREATININE RATIO 12.2 (10-20); CALCIUM 9.2 mg/dl (8.5-10.1); CREATININE 0.8 mg/dl (0.60-1.40); POTASSIUM 4.3 mmol/L (3.5-5.1)
[2016-10-21] MEDS: VENLAFAXINE HCL XR 37.5 MG CAPXR PO SCH (08:55)
[2016-10-21] MEDS: DOCUSATE SODIUM 100 MG CAP PO SCH (08:55)
[2016-10-21] MEDS: RIVAROXABAN TAB 15 MG TAB PO SCH ×2 (08:55→17:58)
[2016-10-21] MEDS: TAPENTADOL HCL 50 MG TAB PO PRN (09:59)
[2016-10-21 11:18] VITALS: BP 121/69; PULSE 66; TEMP 36.8; O2SAT 95
--- NOTE | 2016-10-21 13:25 | Pulmonology Progress Note ---
Pulmonary Progress Note Date of Service Oct 21, 2016. Attending Dr. Gallagher Subjective 29-year-old male admitted with pulmonary embolism with associated chest pain. #1 Pulmonary embolus: The patient had a right upper extremity Doppler with no signs of DVT yesterday. At this time there is no definitive etiology for the patient's pulmonary embolism and will have to wait for the serum studies to return. I believe also is a excellent choice for this patient's anticoagulation once again that will determine/be based off his insurance. He will need at least 3 months of anticoagulation. He will also require follow-up in the pulmonary Department. #2 chest pain: Patient notes that his chest pain is about 5 out of 10 and seems better control. We'll continue the Toradol at this time and leave the opiates for pain management team. #3 sign off: Pulmicort and will sign off from the patient at this time. Please make sure the patient is followed up 2-3 weeks after his discharge. I spoke at length to the patient is mother today and asked the mom to be present during clinic visits as the patient at this time on medication appears to have difficulty grasping the full extent of his disease. Data Medications: Current Inpatient Medications Medications (Trade) Dose Ordered Sig/Saud Route Start Time Stop Time Status Last Admin Dose Admin Ioversol (Optiray 320) 125 ml UD PRN IV 10/19/16 11:00 10/23/16 10:59 Acetaminophen (Tylenol Tab) 650 mg Q4H PRN PO 10/19/16 12:45 11/18/16 12:44 Ondansetron HCl (Zofran Inj) 4 mg Q6H PRN IV 10/19/16 12:45 11/18/16 12:44 Alprazolam (Xanax Tab) 0.5 mg BID PRN PO 10/19/16 14:00 11/18/16 13:59 10/20/16 22:17 0.5 MG Venlafaxine HCl (effeXOR EXTENDED REL CAP) 37.5 mg QAM PO 10/20/16 09:00 11/19/16 08:59 10/21/16 08:55 37.5 MG Tapentadol (Nucynta Tab) 50 mg Q6H PRN PO 10/20/16 10:15 11/19/16 10:14 7/29/17 09:59 50 MG Naloxone HCl (Narcan Inj) 0.1 mg Q5M PRN IV 10/20/16 10:15 11/19/16 10:14 Miscellaneous Information (Lock-Out COUNTERINTELLIGENCE ANALYST Titration) 1 ea QS N/A 10/20/16 16:00 11/03/16 15:59 Hydromorphone HCl (Dilaudid Community Dietitian) 25 mg PRN PRN IV 10/20/16 10:15 11/03/16 10:14 Future hold 10/21/16 06:51 25 MG Docusate Sodium (coLACE CAP) 100 mg BID PO 10/20/16 21:00 11/19/16 20:59 10/21/16 08:55 100 MG Sodium Chloride 1,000 ml @ 15 mls/hr Q24H IV 10/20/16 10:15 11/19/16 10:14 10/21/16 01:37 15 MLS/HR Methylprednisolone (Medrol Tab) 4 mg 07,13,18 PO 10/21/16 07:00 10/21/16 18:01 10/21/16 12:38 4 MG Methylprednisolone (Medrol Tab) 8 mg HS PO 10/21/16 21:00 10/21/16 21:01 Methylprednisolone (Medrol Tab) 4 mg 07,13,18,21 PO 10/22/16 07:00 10/22/16 21:01 Methylprednisolone (Medrol Tab) 4 mg 07,13,21 PO 10/23/16 07:00 10/23/16 21:01 Methylprednisolone (Medrol Tab) 4 mg 07,21 PO 10/24/16 07:00 10/24/16 21:01 Methylprednisolone (Medrol Tab) 4 mg 07 PO 10/25/16 07:00 10/25/16 07:01 Rivaroxaban (Xarelto Tab) 15 mg BIDM PO 10/20/16 16:45 11/19/16 16:44 10/21/16 08:55 15 MG Ketorolac Tromethamine (Toradol Inj) 15 mg Q6H PRN IV 10/20/16 11:45 10/22/16 14:00 10/21/16 12:38 15 MG Vital Signs: Date Time Temp Pulse Resp B/P (MAP) Pulse Ox O2 Delivery O2 Flow Rate FiO2 10/21/16 11:18 36.8 66 16 121/69 (86) 95 Room Air 10/21/16 07:28 Room Air 10/21/16 06:54 37.0 66 18 113/67 (82) 94 Room Air 10/21/16 03:25 37.1 72 18 109/67 (81) 93 Room Air 10/20/16 22:50 37.0 81 17 118/70 (86) 94 Room Air 10/20/16 19:51 Room Air 10/20/16 18:25 37.0 80 16 116/81 (93) 95 Room Air 10/20/16 17:40 36.9 73 16 115/73 (87) 95 Room Air 10/20/16 16:29 36.6 72 18 111/69 (83) 96 Room Air 10/20/16 15:29 37.1 88 18 129/71 (90) 94 Room Air 10/20/16 14:30 Room Air 10/20/16 14:28 36.5 89 16 123/83 (96) 96 Laboratory Results: Last 24 Hours Test 10/21/16 07:44 White Blood Count 11.62 K/uL Red Blood Count 4.62 M/uL Hemoglobin 14.0 g/dL Hematocrit 40.6 % Mean Corpuscular Volume 87.9 fL Mean Corpuscular Hemoglobin 30.3 pg Mean Corpuscular Hemoglobin Concent 34.5 g/dl RDW Standard Deviation 40.8 fL RDW Coefficient of Variation 12.7 % Platelet Count 266 K/uL Mean Platelet Volume 9.4 fL Activated Partial Thromboplast Time 32.0 SECONDS Partial Thromboplastin Ratio 1.2 Sodium Level 139 mmol/L Potassium Level 4.3 mmol/L Chloride Level 104 mmol/L Carbon Dioxide Level 30 mmol/L Anion Gap 5.0 mmol/L Blood Urea Nitrogen 10 mg/dl Creatinine 0.80 mg/dl Est Creatinine Clear Calc Drug Dose 157.7 ml/min Estimated GFR () 145.9 Estimated GFR (Non- 125.9 BUN/Creatinine Ratio 12.2 Random Glucose 103 mg/dl Calcium Level 9.2 mg/dl
--- NOTE | 2016-10-21 14:14 | Progress Note ---
Medicine Progress Note Date & Time of Visit: Oct 21, 2016 at 14:14. Objective Last 8 Hrs Date Time Temp Pulse Resp B/P (MAP) Pulse Ox O2 Delivery O2 Flow Rate FiO2 10/21/16 11:18 36.8 66 16 121/69 (86) 95 Room Air 10/21/16 07:28 Room Air 10/21/16 06:54 37.0 66 18 113/67 (82) 94 Room Air Physical Exam: Laboratory Results: Last 24 Hours Test 10/21/16 07:44 White Blood Count 11.62 K/uL Red Blood Count 4.62 M/uL Hemoglobin 14.0 g/dL Hematocrit 40.6 % Mean Corpuscular Volume 87.9 fL Mean Corpuscular Hemoglobin 30.3 pg Mean Corpuscular Hemoglobin Concent 34.5 g/dl RDW Standard Deviation 40.8 fL RDW Coefficient of Variation 12.7 % Platelet Count 266 K/uL Mean Platelet Volume 9.4 fL Activated Partial Thromboplast Time 32.0 SECONDS Partial Thromboplastin Ratio 1.2 Sodium Level 139 mmol/L Potassium Level 4.3 mmol/L Chloride Level 104 mmol/L Carbon Dioxide Level 30 mmol/L Anion Gap 5.0 mmol/L Blood Urea Nitrogen 10 mg/dl Creatinine 0.80 mg/dl Est Creatinine Clear Calc Drug Dose 157.7 ml/min Estimated GFR () 145.9 Estimated GFR (Non- 125.9 BUN/Creatinine Ratio 12.2 Random Glucose 103 mg/dl Calcium Level 9.2 mg/dl Assessment & Plan ATTENDING ADDENDUM care coordinated with BIJU Jha please refer to her notes for full details, I agree with her notes patient seen and examined, records reviewed by myself as well on exam, patient seen resting in bed, comfortable RN informed BIJU Jha that patient was expressing desire to leave talked to patient at bedside with BIJU Jha at bedside states he is confused with the plan of care, and he is still having significant chest pain, left lower lobe region, worse with inspiration explained plan of care with patient including pain management- he then agreed and was comfortable with plan of care denies cough, hemoptysis, dizziness no other symptoms VS noted and reviewed oriented x 3 , not in distress, speaks in sentences with no effort nor accessory muscle use normal rate, regular rhythm, no murmurs clear breath sounds bilaterally non distended, soft, nontender no bipedal edema, erythema, warmth no neuro deficits WBC 8.4 Crea 0.93 ASSESSMENT/PLAN> BILATERAL PULMONARY EMBOLISM - risk factor: recent right shoulder surgery - BP stable, not hypoxic still with significant pleuritic chest pain - Lovenox transitioned to Xarelto appreciate Pulm input - Pain Management service consulted recommend Toradol, Medrol dosepak, Nucynta and Dilaudid FIRE EQUIPMENT REPAIRER INSPECTOR pump will continue to monitor HISTORY OF NARCOTIC DEPENDENCE - pain management service consulted other diagnoses and plan of care as per BIJU Jha's notes Rajeev Pearl MD Current Inpatient Medications: Current Inpatient Medications Medications (Trade) Dose Ordered Sig/Saud Route Start Time Stop Time Status Last Admin Dose Admin Ioversol (Optiray 320) 125 ml UD PRN IV 10/19/16 11:00 10/23/16 10:59 Acetaminophen (Tylenol Tab) 650 mg Q4H PRN PO 10/19/16 12:45 11/18/16 12:44 Ondansetron HCl (Zofran Inj) 4 mg Q6H PRN IV 10/19/16 12:45 11/18/16 12:44 Alprazolam (Xanax Tab) 0.5 mg BID PRN PO 10/19/16 14:00 11/18/16 13:59 10/20/16 22:17 0.5 MG Venlafaxine HCl (effeXOR EXTENDED REL CAP) 37.5 mg QAM PO 10/20/16 09:00 11/19/16 08:59 10/21/16 08:55 37.5 MG Tapentadol (Nucynta Tab) 50 mg Q6H PRN PO 10/20/16 10:15 11/19/16 10:14 10/21/16 09:59 50 MG Naloxone HCl (Narcan Inj) 0.1 mg Q5M PRN IV 10/20/16 10:15 11/19/16 10:14 Miscellaneous Information (Lock-Out FIRE EQUIPMENT REPAIRER INSPECTOR Titration) 1 ea QS N/A 10/20/16 16:00 11/03/16 15:59 Hydromorphone HCl (Dilaudid Vehicle And Equipment Cleaner) 25 mg PRN PRN IV 10/20/16 10:15 11/03/16 10:14 Future hold 10/21/16 06:51 25 MG Docusate Sodium (coLACE CAP) 100 mg BID PO 10/20/16 21:00 11/19/16 20:59 10/21/16 08:55 100 MG Sodium Chloride 1,000 ml @ 15 mls/hr Q24H IV 10/20/16 10:15 11/19/16 10:14 10/21/16 01:37 15 MLS/HR Methylprednisolone (Medrol Tab) 4 mg 07,13,18 PO 10/21/16 07:00 10/21/16 18:01 10/21/16 12:38 4 MG Methylprednisolone (Medrol Tab) 8 mg HS PO 10/21/16 21:00 10/21/16 21:01 Methylprednisolone (Medrol Tab) 4 mg 07,13,18,21 PO 10/22/16 07:00 10/22/16 21:01 Methylprednisolone (Medrol Tab) 4 mg 07,13,21 PO 10/23/16 07:00 10/23/16 21:01 Methylprednisolone (Medrol Tab) 4 mg 07,21 PO 10/24/16 07:00 10/24/16 21:01 Methylprednisolone (Medrol Tab) 4 mg 07 PO 10/25/16 07:00 10/25/16 07:01 Rivaroxaban (Xarelto Tab) 15 mg BIDM PO 10/20/16 16:45 11/19/16 16:44 10/21/16 08:55 15 MG Ketorolac Tromethamine (Toradol Inj) 15 mg Q6H PRN IV 10/20/16 11:45 10/22/16 14:00 10/21/16 12:38 15 MG
[2016-10-21] MEDS ORDERED: MAGNESIUM HYDROXIDE SUSP 30 ML UDC PO PRN (14:15)
[2016-10-21] MEDS ORDERED: DOCUSATE SODIUM/SENNA 50/8.6MG TAB PO ONE (14:30)
[2016-10-21] MEDS ORDERED: IBUPROFEN 600 MG TAB PO PRN (15:00)
[2016-10-21 15:14] VITALS: BP 127/71; PULSE 69; TEMP 36.6; O2SAT 94
--- NOTE | 2016-10-21 17:23 | Progress Note ---
Medicine Progress Note Date & Time of Visit: Oct 21, 2016 at 17:16. Subjective seen sleeping but easily rousable comfortable states chest pain is improved compared to yesterday, about 6/10, left sided, worse with inspiration denies cough, hemoptysis, dyspnea, dizziness, palpitations (+) constipated but no abdominal pain, nausea no other symptoms Objective Last 8 Hrs Date Time Temp Pulse Resp B/P (MAP) Pulse Ox O2 Delivery O2 Flow Rate FiO2 10/21/16 15:45 Room Air 10/21/16 15:14 36.6 69 18 127/71 (89) 94 Room Air 10/21/16 11:18 36.8 66 16 121/69 (86) 95 Room Air Physical Exam: General- oriented x 3, not in distress, speaks in sentences with no effort Eyes- anicteric Neck- no JVD Lungs- clear breath sounds bilaterally, no rales/wheezes Heart- regular rhythm; no murmur, normal rate Abdomen- normal bowel sounds, soft, nontender Extremities- no pretibial edema, no calf tenderness Neuro- alert, oriented x 3; no gross focal deficits Skin- warm & dry Laboratory Results: Last 24 Hours Test 10/21/16 07:44 White Blood Count 11.62 K/uL Red Blood Count 4.62 M/uL Hemoglobin 14.0 g/dL Hematocrit 40.6 % Mean Corpuscular Volume 87.9 fL Mean Corpuscular Hemoglobin 30.3 pg Mean Corpuscular Hemoglobin Concent 34.5 g/dl RDW Standard Deviation 40.8 fL RDW Coefficient of Variation 12.7 % Platelet Count 266 K/uL Mean Platelet Volume 9.4 fL Activated Partial Thromboplast Time 32.0 SECONDS Partial Thromboplastin Ratio 1.2 Sodium Level 139 mmol/L Potassium Level 4.3 mmol/L Chloride Level 104 mmol/L Carbon Dioxide Level 30 mmol/L Anion Gap 5.0 mmol/L Blood Urea Nitrogen 10 mg/dl Creatinine 0.80 mg/dl Est Creatinine Clear Calc Drug Dose 157.7 ml/min Estimated GFR () 145.9 Estimated GFR (Non- 125.9 BUN/Creatinine Ratio 12.2 Random Glucose 103 mg/dl Calcium Level 9.2 mg/dl Assessment & Plan BILATERAL PULMONARY EMBOLISM - risk factor: recent right shoulder surgery - remains hemodynamically stable, no hypoxia - pleuritic chest pain starting to improve per patient - Lovenox transitioned to Xarelto tolerating well, no bleeding appreciate Pulm input - Pain Management service consulted recommend Toradol, Medrol dosepak, Nucynta and Dilaudid SENIOR INTEGRATION DEVELOPER pump discussed pain management with patient, encouraged to utilize Toradol/ Ibuprofen, Nucynta more than SENIOR INTEGRATION DEVELOPER pump to start weaning off SENIOR INTEGRATION DEVELOPER pump patient verbalized agreement and understanding, comfortable with plan HISTORY OF NARCOTIC DEPENDENCE - pain management service consulted - management as noted above CONSTIPATION - Senokot S Dispo pending anticipate d/c home when pain further improves, tolerated with PO medications discussed case at length with patient and he verbalized understanding and agreement, comfortable with plan of care offered to call parents for update, patient declined and he will update them Current Inpatient Medications: Current Inpatient Medications Medications (Trade) Dose Ordered Sig/Saud Route Start Time Stop Time Status Last Admin Dose Admin Ioversol (Optiray 320) 125 ml UD PRN IV 10/19/16 11:00 10/23/16 10:59 Acetaminophen (Tylenol Tab) 650 mg Q4H PRN PO 10/19/16 12:45 11/18/16 12:44 Ondansetron HCl (Zofran Inj) 4 mg Q6H PRN IV 10/19/16 12:45 11/18/16 12:44 Alprazolam (Xanax Tab) 0.5 mg BID PRN PO 10/19/16 14:00 11/18/16 13:59 10/20/16 22:17 0.5 MG Venlafaxine HCl (effeXOR EXTENDED REL CAP) 37.5 mg QAM PO 10/20/16 09:00 11/19/16 08:59 10/21/16 08:55 37.5 MG Tapentadol (Nucynta Tab) 50 mg Q6H PRN PO 10/20/16 10:15 11/19/16 10:14 10/21/16 09:59 50 MG Naloxone HCl (Narcan Inj) 0.1 mg Q5M PRN IV 10/20/16 10:15 11/19/16 10:14 Miscellaneous Information (Lock-Out SENIOR INTEGRATION DEVELOPER Titration) 1 ea QS N/A 10/20/16 16:00 11/03/16 15:59 Hydromorphone HCl (Dilaudid Supercharger Mechanic) 25 mg PRN PRN IV 10/20/16 10:15 11/03/16 10:14 Future hold 10/21/16 15:14 25 MG Sodium Chloride 1,000 ml @ 15 mls/hr Q24H IV 10/20/16 10:15 11/19/16 10:14 10/21/16 01:37 15 MLS/HR Methylprednisolone (Medrol Tab) 4 mg 07,13,18 PO 10/21/16 07:00 10/21/16 18:01 10/21/16 12:38 4 MG Methylprednisolone (Medrol Tab) 8 mg HS PO 10/21/16 21:00 10/21/16 21:01 Methylprednisolone (Medrol Tab) 4 mg 07,13,18,21 PO 10/22/16 07:00 10/22/16 21:01 Methylprednisolone (Medrol Tab) 4 mg 07,13,21 PO 10/23/16 07:00 10/23/16 21:01 Methylprednisolone (Medrol Tab) 4 mg 07,21 PO 10/24/16 07:00 10/24/16 21:01 Methylprednisolone (Medrol Tab) 4 mg 07 PO 10/25/16 07:00 10/25/16 07:01 Rivaroxaban (Xarelto Tab) 15 mg BIDM PO 10/20/16 16:45 11/19/16 16:44 10/21/16 08:55 15 MG Ketorolac Tromethamine (Toradol Inj) 15 mg Q6H PRN IV 10/20/16 11:45 10/22/16 14:00 10/21/16 12:38 15 MG Senna/Docusate Sodium (Senokot S Tab) 1 tab QAM PO 10/22/16 09:00 11/21/16 08:59 Magnesium Hydroxide (Milk Of Magnesia Susp) 30 ml Q6H PRN PO 10/21/16 14:15 11/20/16 14:14 Sodium Chloride 1,000 ml @ 75 mls/hr [id number] IV 10/21/16 14:15 11/20/16 14:14 10/21/16 14:46 75 MLS/HR Ibuprofen (Motrin Tab) 600 mg QID PRN PO 10/21/16 15:00 11/20/16 14:59
[2016-10-21 19:06] VITALS: BP 127/73; PULSE 67; TEMP 36.6; O2SAT 95
[2016-10-21] MEDS: ALPRAZOLAM 0.5 MG TAB PO PRN (20:49)
[2016-10-21] MEDS ORDERED: METHYLPREDNISOLONE 4 MG TAB PO SCH (21:00)
[2016-10-21 22:56] VITALS: BP 117/76; PULSE 95; TEMP 37; O2SAT 94
[2016-10-22 03:05] VITALS: BP 115/75; PULSE 66; TEMP 37; O2SAT 95
[2016-10-22] MEDS: SODIUM CHLORIDE 0.9% 1000ML 1,000 ML IV SCH ×2 (03:05→11:54)
[2016-10-22] MEDS: METHYLPREDNISOLONE 4 MG TAB PO SCH ×2 (06:12→13:14)
[2016-10-22 06:58] LABS: BASO % 0.1 %; BASO ABS # 0.01 K/uL (0-0.2); COMPLETE YES; EOS % 0.4 %; HEMATOCRIT 41.8 % (42-52); IG% 0.2 %; LYMPH % 22.5 %; LYMPH ABS # 2.21 K/uL (1.2-3.4); MEAN CELL VOLUME 89.5 fL (80-100); MEAN CORPUSCULAR HEMOGLOBIN 29.3 pg (25-34); MEAN CORPUSCULAR HGB CONC 32.8 g/dl (32-36); MEAN PLATELET VOLUME 9.5 fL (7.4-10.4); NEUT % 69.8 %; PLATELET COUNT 279 K/uL (130-400); RED BLOOD COUNT 4.67 M/uL (4.7-6.1); WHITE BLOOD COUNT 9.84 K/uL (4.8-10.8)
[2016-10-22] MEDS: HYDROmorphone HCL 0.5MG/ML 50 ML CASSETTE IV PRN ×2 (07:08→11:00)
[2016-10-22 07:10] LABS: PARTIAL THROMBOPLASTIN RATIO 1.3
[2016-10-22 07:18] VITALS: BP 114/74; PULSE 88; TEMP 37.1; O2SAT 96
[2016-10-22 07:31] LABS: BUN/CREATININE RATIO 14.9 (10-20); CALCIUM 9.2 mg/dl (8.5-10.1); CREATININE 0.87 mg/dl (0.60-1.40); POTASSIUM 4.2 mmol/L (3.5-5.1)
[2016-10-22] MEDS ORDERED: DOCUSATE SODIUM/SENNA 50/8.6MG TAB PO SCH (09:00)
[2016-10-22] MEDS: LOCK-OUT PCA TITRATION SCH (09:00)
[2016-10-22] MEDS: RIVAROXABAN TAB 15 MG TAB PO SCH (09:01)
[2016-10-22] MEDS: VENLAFAXINE HCL XR 37.5 MG CAPXR PO SCH (09:01)
--- NOTE | 2016-10-22 13:24 | Progress Note ---
Medicine Progress Note Date & Time of Visit: Oct 22, 2016 at 13:02. Subjective patient seen resting in bed, girlfriend at bedside sitting up in bed, comfortable expressed desire for discharge with staffing executive states his left sided chest pain is less today, around 4/10 denies dyspnea, cough, hemoptysis, dizziness, palpitations no bleeding reports itching and redness around his eyes, some itching on his back denies other rash, no dyspnea, no lip/tongue swelling denies other symptoms states he is ready and would like to be discharged today Objective Last 8 Hrs Date Time Temp Pulse Resp B/P (MAP) Pulse Ox O2 Delivery O2 Flow Rate FiO2 10/22/16 07:35 Room Air 10/22/16 07:18 37.1 88 16 114/74 (87) 96 Room Air Physical Exam: General- oriented x 3, not in distress, speaks in sentences with no effort Eyes- anicteric, (+) periorbital mild erythema, no edema, no discharge/tearing, mild eyelid crusting on the left, no conjunctival redness, no problems with vision, no pain Neck- no JVD Lungs- clear breath sounds bilaterally, no rales/wheezes bilaterally Heart- regular rhythm; no murmur, normal rate Abdomen- normal bowel sounds, soft, nontender Extremities- no pretibial edema, no calf tenderness Neuro- alert, oriented x 3; no gross focal deficits Skin- warm & dryno other rash noted Laboratory Results: Last 24 Hours Test 10/22/16 06:33 White Blood Count 9.84 K/uL Red Blood Count 4.67 M/uL Hemoglobin 13.7 g/dL Hematocrit 41.8 % Mean Corpuscular Volume 89.5 fL Mean Corpuscular Hemoglobin 29.3 pg Mean Corpuscular Hemoglobin Concent 32.8 g/dl Platelet Count 279 K/uL Mean Platelet Volume 9.5 fL Neutrophils (%) (Auto) 69.8 % Lymphocytes (%) (Auto) 22.5 % Monocytes (%) (Auto) 7.0 % Eosinophils (%) (Auto) 0.4 % Basophils (%) (Auto) 0.1 % Neutrophils # (Auto) 6.87 K/uL Lymphocytes # (Auto) 2.21 K/uL Monocytes # (Auto) 0.69 K/uL Eosinophils # (Auto) 0.04 K/uL Basophils # (Auto) 0.01 K/uL RDW Standard Deviation 41.5 fL RDW Coefficient of Variation 12.9 % Immature Granulocyte % (Auto) 0.2 % Immature Granulocyte # (Auto) 0.02 K/uL Activated Partial Thromboplast Time 33.6 SECONDS Partial Thromboplastin Ratio 1.3 Sodium Level 140 mmol/L Potassium Level 4.2 mmol/L Chloride Level 103 mmol/L Carbon Dioxide Level 30 mmol/L Anion Gap 7.0 mmol/L Blood Urea Nitrogen 13 mg/dl Creatinine 0.87 mg/dl Est Creatinine Clear Calc Drug Dose 145.0 ml/min Estimated GFR () 141.0 Estimated GFR (Non- 121.7 BUN/Creatinine Ratio 14.9 Random Glucose 115 mg/dl Calcium Level 9.2 mg/dl Assessment & Plan BILATERAL PULMONARY EMBOLISM - unclear etiology - risk factor: recent right shoulder surgery - CT angio: 1. Bilateral pulmonary emboli within the right upper lobe, right lower lobe, and left lower lobe. The right upper lobe pulmonary artery is involved, although primarily involvement segmental/subsegmental pulmonary arteries. Apparent mild flattening of the interventricular septum could raise concern for right heart strain. Correlate clinically. 2. Minimal nodular groundglass opacities in the right upper lobe, could relate to the presence of pulmonary emboli. 3. Left basilar atelectasis with small left pleural effusion. 4. Additional consolidation in the nondependent left lower lobe. Although this may relate to pulmonary emboli, dissection cannot be excluded. - hypercoagulable work up not performed as patient was started on Heparin Upper and Lower Extremity doppler: negative for DVT Echo: * -- Conclusions -- * Normal LV chamber size and wall thickness. * Normal LV systolic function, EF 55-60%. * No segmental left ventricular wall motion abnormalities are noted. * Normal diastolic function. * The right ventricular cavity size is normal (basal dimension <4.2 cm in right ventricular apical 4-chamber view). The right ventricular systolic function is normal as assessed by tricuspid annular plane systolic excursion (TAPSE) (normal >1.5 cm). * No significant valvular pathology. - Pulmonary SVC Dr. Gallagher consulted etiology of PEs unclear at this time - started on heparin, transitioned to Lovenox, transitioned to Xarelto no bleeding noted - Pain Management service consulted- Dr. Griffin recommend Dilaudid [employer]ING ENGINEER pump, Medrol dosepak Nucynta PRN, Toradol PRN patient's pain adequately controlled with above - hemodynamically stable, no hypoxia pain improving - discharge plan: Xarelto 15mg BID with food x 3 weeks (received 2 days in the hospital, needs 19 more days), then 20mg po daily Nucynta 50mg QID PRN pain ( should start Vivitrol 24 hours after last dose of Nucynta/Opiate) Finish Solumedrol dose pack x 4 more days Senokot S patient advised to follow up with PCP in 3-5 days follow up with Pulmonary SVC Dr. Gallagher in 2-3 weeks PERIORBITAL ERYTHEMA, PRURITUS - likely allergic reaction from Dilaudid - will prescribe Benadryl PRN - patient advised to monitor and call 911 if with dyspnea/swelling of tongue/ lips otherwise, call PCP if itching, discharge, redness worsens HISTORY OF NARCOTIC DEPENDENCE - pain management service consulted - management as noted above - Vivitrol prescribed by Dr. Trammell ( should start Vivitrol 24 hours after last dose of Nucynta/Opiate) - patient advised that medications should be kept and administered by family member, he agreed CONSTIPATION - no abdominal pain - Senokot S daily Dispo d/c home ff up with PCP in 3-5 days ff up with Pulmonary Dr. Gallagher in 2-3 weeks case discussed extensively with patient and his girlfriend at bedside including what to watch out for, bleeding precautions, follow up with PCP as directed and take medications regularly as advised they understand, agree and are comfortable with plan of care Current Inpatient Medications: Current Inpatient Medications Medications (Trade) Dose Ordered Sig/Saud Route Start Time Stop Time Status Last Admin Dose Admin Ioversol (Optiray 320) 125 ml UD PRN IV 10/19/16 11:00 10/23/16 10:59 Acetaminophen (Tylenol Tab) 650 mg Q4H PRN PO 10/19/16 12:45 11/18/16 12:44 Ondansetron HCl (Zofran Inj) 4 mg Q6H PRN IV 10/19/16 12:45 11/18/16 12:44 Alprazolam (Xanax Tab) 0.5 mg BID PRN PO 10/19/16 14:00 11/18/16 13:59 10/21/16 20:49 0.5 MG Venlafaxine HCl (effeXOR EXTENDED REL CAP) 37.5 mg QAM PO 10/20/16 09:00 11/19/16 08:59 10/22/16 09:01 37.5 MG Tapentadol (Nucynta Tab) 50 mg Q6H PRN PO 10/20/16 10:15 11/19/16 10:14 10/21/16 09:59 50 MG Naloxone HCl (Narcan Inj) 0.1 mg Q5M PRN IV 10/20/16 10:15 11/19/16 10:14 Miscellaneous Information (Lock-Out [employer] MANU[employer]URING ENGINEER Titration) 1 ea QS N/A 10/20/16 16:00 11/03/16 15:59 Hydromorphone HCl (Dilaudid Data Operations Manager) 25 mg PRN PRN IV 10/20/16 10:15 11/03/16 10:14 Future hold 10/22/16 11:00 25 MG Sodium Chloride 1,000 ml @ 15 mls/hr Q24H IV 10/20/16 10:15 11/19/16 10:14 10/22/16 11:54 15 MLS/HR Methylprednisolone (Medrol Tab) 4 mg 07,13,18,21 PO 10/22/16 07:00 10/22/16 21:01 10/22/16 06:12 4 MG Methylprednisolone (Medrol Tab) 4 mg 07,13,21 PO 10/23/16 07:00 10/23/16 21:01 Methylprednisolone (Medrol Tab) 4 mg 07,21 PO 10/24/16 07:00 10/24/16 21:01 Methylprednisolone (Medrol Tab) 4 mg 07 PO 10/25/16 07:00 10/25/16 07:01 Rivaroxaban (Xarelto Tab) 15 mg BIDM PO 10/20/16 16:45 11/19/16 16:44 10/22/16 09:01 15 MG Ketorolac Tromethamine (Toradol Inj) 15 mg Q6H PRN IV 10/20/16 11:45 10/22/16 14:00 10/21/16 12:38 15 MG Senna/Docusate Sodium (Senokot S Tab) 1 tab QAM PO 10/22/16 09:00 11/21/16 08:59 10/22/16 09:01 1 TAB Magnesium Hydroxide (Milk Of Magnesia Susp) 30 ml Q6H PRN PO 10/21/16 14:15 11/20/16 14:14 Sodium Chloride 1,000 ml @ 75 mls/hr [id number] IV 10/21/16 14:15 11/20/16 14:14 10/22/16 03:05 75 MLS/HR Ibuprofen (Motrin Tab) 600 mg QID PRN PO 10/21/16 15:00 11/20/16 14:59 Diphenhydramine HCl (Benadryl Cap) 25 mg Q6H PRN PO 10/22/16 13:00 11/21/16 12:59 UNV Diphenhydramine HCl (Benadryl Cap) 25 mg 1248 ONCE PO 10/22/16 12:48 10/22/16 12:49 UNV
[2016-10-22] MEDS ORDERED: SENN8.6T7 PO (13:31)
[2016-10-22] MEDS ORDERED: BND25X PO (13:31)
[2016-10-22] MEDS ORDERED: NCY50 PO (13:31)
[2016-10-22] MEDS ORDERED: XRL15 PO (13:31)
[2016-10-22] MEDS ORDERED: ACET-1047 PO (13:31)
[2016-10-22] MEDS ORDERED: MDR4 PO (13:31)
[2016-10-22] MEDS ORDERED: EFFSR375 PO (13:31)
--- NOTE | 2016-10-22 13:38 | Discharge Instructions ---
Discharge Instructions Date of Service Oct 22, 2016. Admission Reason for Admission: Bilateral Pulmonary Embolism Discharge Discharge Diagnosis / Problem: BILATERAL PULMONARY EMBOLISM Discharge Goals Goal(s): Diagnostic testing, Therapeutic intervention Activity Recommendations Activity Limitations: as noted below (NO HEAVY EXERTION UNTIL RE EVALUATED BY PRIMARY CARE PHYSICIAN) Lifting Limitations: until after follow-up appointment Exercise/Sports Limitations: until after follow-up appointment Driving or Machine Use: NO DRIVING WHILE TAKING NUCYNTA, BENDARYL . Instructions / Follow-Up Instructions / Follow-Up PLEASE REVIEW YOUR NEW MEDICATION LIST AND FOLLOW INSTRUCTIONS CAREFULLY. TAKE MEDICATIONS ONLY DIRECTED. GO TO THE ER IMMEDIATELY IF YOU HAVE ANY HEAD INJURY OR BLEEDING, COUGH, FEVER/CHILLS, NAUSEA/VOMITING, INCREASING REDNESS OR ITCHING OF YOUR SKIN. CALL 911 IMMEDIATELY IF WITH TONGUE/LIP SWELLING, SHORTNESS OF BREATH. AFTER 3 WEEKS OF XARELTO 15MG TWICE A DAY, YOU WILL NEED TO TAKE XARELTO 20MG DAILY. PLEASE REQUEST A NEW PRESCRIPTION FOR THIS FROM YOUR PRIMARY CARE PHYSICIAN. DO NOT MISS ANY DOSE. DO NOT STOP TAKING XARELTO WITHOUT DISCUSSING WITH YOUR DOCTOR FIRST. ALSO, TALK TO YOUR DOCTOR FIRST PRIOR TO STARTING ANY MEDICATION. TO PROMOTE HEALING AND MAINTAIN GOOD HEALTH, NO SMOKING, ALCOHOL, ILLICIT DRUGS. FOLLOW UP WITH PRIMARY CARE PHYSICIAN DR. JACOB ON MONDAY, OCTOBER 24, 2016 AT 2:00PM. FOLLOW UP WITH LUNG SPECIALIST DR. GARCIA IN 2-3 WEEKS. PLEASE CALL HIS OFFICE FOR APPOINTMENT. TEL. NO. Current Hospital Diet Patient's current hospital diet: Regular Diet Discharge Diet Recommended Diet: Regular Diet Procedures Procedures Performed: CT SCAN CHEST, ULTRASOUND UPPER AND LOWER EXT, ECHOCARDIOGRAM- HEART Pending Studies Studies pending at discharge: no Medical Emergencies . Who to Call and When: Medical Emergencies: If at any time you feel your situation is an emergency, please call 911 immediately. . Non-Emergent Contact Non-Emergency issues call your: Primary Care Provider, Material Carrier Call Non-Emergent contact if: you have a fever, your pain is not controlled, your pain is worsening, you have any medication questions . . "Provider Documentation" section prepared by Rajeev Pealr. . VTE Core Measure Inpt VTE Proph given/why not?: Enoxaparin (Lovenox)[facility] Drug Monitoring Program Search Results: patient reviewed within database, no issues identified
[2016-10-22 13:44] VITALS: BP 114/74; PULSE 88; TEMP 37.1; O2SAT 96
--- NOTE | 2016-10-22 14:14 | Discharge Summary ---
Discharge Summary Date of Service Oct 22, 2016. Discharge Summary Admission Date: Oct 19, 2016 at 13:07 Discharge Date: Oct 22, 2016 Discharge Disposition: Home Principal Diagnosis: BILATERAL PULMONARY EMBOLISM Secondary Diagnoses/Problems: Please refer to hospital course below. Procedures: (CHEST FOR PE) ANGIO WITH CLINICAL HISTORY: 25 years-old Male presenting with left rib pain, increases with deep breath and dry hacking cough, complains of chills, clinical concern for pulmonary embolus. TECHNIQUE: Multidetector CT angiography of the chest was performed after administration of intravenous contrast. 3-D volumetric and maximum intensity projection (MIP) images were subsequently reconstructed for review. IV contrast: 94 mL of Optiray 320. A dose lowering technique was used consistent with the principles of ALARA (as low as reasonably achievable). COMPARISON: 05/08/2013. CT DOSE (mGy.cm): The estimated cumulative dose is 380.58 mGy.cm. FINDINGS: Tail Puller topogram: Unremarkable. Pulmonary vasculature: The study is adequate for assessment of the pulmonary vascular tree. Filling defects within the right upper lobe pulmonary artery and distal segmental right upper lobe arteries as well as subsegmental pulmonary arteries of the right lower lobe. Subsegmental emboli in the left lower lobe may also be present. Main pulmonary artery not enlarged. Mild flattening of the interventricular septum. No intracardiac filling defect within the right heart. Remaining chest: On soft tissue windows, normal thyroid and thoracic inlet. No axillary, supraclavicular, hilar, or mediastinal lymphadenopathy. Normal aorta. Multichamber enlargement of the heart. Small left pleural effusion. Upper abdomen normal. On lung windows, minimal nodular groundglass opacities in the posterior segment of the right upper lobe along the major fissure. Bandlike dependent consolidation at the left lower lobe with more groundglass and nondependent consolidation in the lateral basal segment along the major fissure (series 4 image 76). Airways patent. On bone windows, 2 pin fixation across the anterior right glenoid fossa with fragmentation and persistent fracture plane along the anterior glenoid rim. IMPRESSION: 1. Bilateral pulmonary emboli within the right upper lobe, right lower lobe, and left lower lobe. The right upper lobe pulmonary artery is involved, although primarily involvement segmental/subsegmental pulmonary arteries. Apparent mild flattening of the interventricular septum could raise concern for right heart strain. Correlate clinically. 2. Minimal nodular groundglass opacities in the right upper lobe, could relate to the presence of pulmonary emboli. 3. Left basilar atelectasis with small left pleural effusion. 4. Additional consolidation in the nondependent left lower lobe. Although this may relate to pulmonary emboli, dissection cannot be excluded. The report will be called/faxed according to standard departmental protocol. Electronically signed by: Catrachito García M.D. 10/19/2016 11:29 AM BILATERAL LOWER EXTREMITY VENOUS DOPPLER CLINICAL HISTORY: Pulmonary emboli. Calf pain. COMPARISON STUDY: No previous studies for comparison. TECHNIQUE: Sonography of the deep venous system of the bilateral lower extremities was performed. Compression and augmentation were evaluated. FINDINGS: The bilateral common femoral, superficial femoral and popliteal veins were compressible. Augmentation was normal. Flow was shown within the deep calf vessels. IMPRESSION: No evidence of deep venous thrombus within the bilateral lower extremities. RIGHT UPPER EXTREMITY VENOUS DOPPLER ULTRASOUND CLINICAL HISTORY: Pulmonary embolism. COMPARISON STUDY: No previous studies for comparison. FINDINGS: No venous thrombus is identified within the right internal jugular, axillary, brachial, basilic, radial, ulnar or cephalic veins. A catheter within a vein of the right antecubital fossa is incidentally noted. There is no adjacent thrombus. IMPRESSION: No deep venous thrombus within the right upper extremity. 2D ECHOCARDIOGRAM * Name: HARINI GHOTRANEHAL Study Date: 10/20/2016 07:56 AM BP: 109/75 mmHg * Patient Location: [facility]\\\\39\\S\\[id number] HR: 88 * : 1990 (M/d/yyyy) Gender: Male Height: 72 in * Age: 25 yrs Ethnicity: RI Weight: 202 lb * Ordering Physician: Monique Jha * Referring Physician: Self, Referred * Performed By: Adis Brandt RCS * * Reason For Study: B/L PE's * BSA: 2.1 m2 * -- Conclusions -- * Normal LV chamber size and wall thickness. * Normal LV systolic function, EF 55-60%. * No segmental left ventricular wall motion abnormalities are noted. * Normal diastolic function. * The right ventricular cavity size is normal (basal dimension <4.2 cm in right ventricular apical 4-chamber view). The right ventricular systolic function is normal as assessed by tricuspid annular plane systolic excursion (TAPSE) ( normal >1.5 cm). * No significant valvular pathology. Procedure Details * A complete two-dimensional transthoracic echocardiogram was performed (2D, M- mode, Doppler and color flow Doppler). * A contrast injection of Definity was performed to improve assessment for apical thrombus. * Contrast was injected into an intravenous site in the right arm. * One vial of Definity ultrasound contrast was diluted in normal saline to a total volume of 10 ml. A total of '2' ml of solution was administered during imaging. * Lot # [id number] of Definity utilized for procedure. * Expiration date 1AUG18. * The attending nurse who injected the contrast agent was Maikel Gil RN. Left Ventricle * The left ventricle is normal in size. * There is normal left ventricular wall thickness. * Ejection Fraction = 55-60%. * Left ventricular systolic function is normal. * No segmental left ventricular wall motion abnormalities are noted. * The left ventricular wall motion is normal. Right Ventricle * The right ventricular cavity size is normal (basal dimension <4.2 cm in right ventricular apical 4-chamber view). * The right ventricular systolic function is normal as assessed by tricuspid annular plane systolic excursion (TAPSE) (normal >1.5 cm). Atria * The left atrial size is normal. * Right atrial size is normal. * No ASD detected; PFO is not assessed. Mitral Valve * The mitral valve is normal in structure and function. Tricuspid Valve * The tricuspid valve is normal in structure and function. Aortic Valve * The aortic valve is normal in structure and function. Pulmonic Valve * The pulmonary valve is not well seen, but the Doppler examination is normal without significant regurgitation or stenosis. Great Vessels * The aortic root and proximal ascending aorta are normal sized. Pericardium/Pleural * There is no pericardial effusion. Left Ventricular Diastolic Function * Pulse wave TDI of the anterior and posterior mitral annulas demonstrates normal LV relaxation Consultations: PULMONARY DR. GARCIA, PAIN MANAGEMENT DR. GRIFFIN Pending Studies/Follow-Up: PLEASE REFER TO HOSPITAL COURSE BELOW. Medication Reconciliation New Medications: Methylprednisolone (Methylprednisolone) 4 Mg Tab 1 TAB PO UD, #8 TABS OCTOBER 22, 2016: TAKE 1 TAB AT 6PM AND 1 TAB AT 9PM, THEN OCTOBER 23, 2016: TAKE 1 TAB THREE TIMES A DAY, THEN OCTOBER 24, 2016: TAKE 1 TAB TWICE A DAY, THEN OCTOBER 25, 2016: TAKE 1 TAB DAILY, THEN STOP Acetaminophen (Mapap) 325 Mg Tab 650 MG PO Q6H PRN for Pain or Fever for 10 Days Diphenhydramine HCl (Diphenhydramine HCl) 25 Mg Cap 25 MG PO Q6H PRN for itching for 7 Days, #10 CAP 0 Refills Rivaroxaban (Xarelto) 15 Mg Tab 15 MG PO BIDM for 19 Days, #38 TAB 0 Refills ALWAYS TAKE WITH FULL STOMACH Sennosides-Docusate Sodium (Senokot S) 1 Tab Tab 1 TAB PO QAM for 10 Days, #10 TAB 1 Refill Tapentadol HCl (Nucynta) 50 Mg Tab 50 MG PO Q6H PRN for Pain, #10 TAB 0 Refills Venlafaxine HCl (Venlafaxine HCl ER) 37.5 Mg Capcr 37.5 MG PO QAM for 7 Days Continued Medications: Alprazolam (Alprazolam) 0.5 Mg Tab 0.5 MG PO BID PRN for Anxiety, #60 Admission Information HPI (per Admitting provider): This is a 25yo M with a PMH of depression, polysubstance abuse and R shoulder dislocation s/p surgical repair on 09/21/16 who presents with pleuritic chest pain and dyspnea for one day. Patient woke up today with severe pain on L side of chest, specifically L ribs that is aggravated by inspiration. Radiates upwards to L chest and neck. Has been taking small breaths to avoid pleuritic pain, so feels SOB as a result. Yesterday, patient experienced bilateral calf "soreness" that has since gone away. Complains of a dry cough but denies any fever, chills, lightheadedness, sputum production, wheezing or calf pain. After surgical repair of shoulder dislocation a month ago, patient states that he has been "up and walking around" but is not back to his full activity level. Denies any personal or family history of DVT, PE or clotting disorders. Of note, patient has a history of polysubstance abuse and has been on Suboxone and Vivitrol in the past. Stopped Vivitrol prior to surgery one month ago. In ED, patient was diagnosed with bilateral pulmonary emboli on CTA. Was started on heparin and given pain control. Physical Exam (per Admitting): General Appearance: + moderate distress (Grimaces during inspiration.) Head: normocephalic Eyes: + abnormal sclerae exam (bilateral icterus) ENT: normal ENT inspection, hearing grossly normal Neck: supple, no adenopathy, thyroid normal Respiratory/Chest: chest non-tender, no respiratory distress (on O2), no accessory muscle use, + decreased breath sounds (bilaterally) Cardiovascular: regular rate, rhythm, no murmur, normal peripheral pulses, + pertinent finding (Tender to palpation on L anteriolateral ribs) Abdomen/GI: normal bowel sounds, soft, no organomegaly Extremities/Musculoskelatal: normal inspection, no calf tenderness, normal capillary refill, no pedal edema Neurologic/Psych: no motor/sensory deficits, alert, normal mood/affect, oriented x 3 Skin: normal color Lymphatic: no adenopathy Hospital Course BILATERAL PULMONARY EMBOLISM - unclear etiology - risk factor: recent right shoulder surgery - CT angio: 1. Bilateral pulmonary emboli within the right upper lobe, right lower lobe, and left lower lobe. The right upper lobe pulmonary artery is involved, although primarily involvement segmental/subsegmental pulmonary arteries. Apparent mild flattening of the interventricular septum could raise concern for right heart strain. Correlate clinically. 2. Minimal nodular groundglass opacities in the right upper lobe, could relate to the presence of pulmonary emboli. 3. Left basilar atelectasis with small left pleural effusion. 4. Additional consolidation in the nondependent left lower lobe. Although this may relate to pulmonary emboli, dissection cannot be excluded. - hypercoagulable work up not performed as patient was started on Heparin Upper and Lower Extremity doppler: negative for DVT Echo: * -- Conclusions -- * Normal LV chamber size and wall thickness. * Normal LV systolic function, EF 55-60%. * No segmental left ventricular wall motion abnormalities are noted. * Normal diastolic function. * The right ventricular cavity size is normal (basal dimension <4.2 cm in right ventricular apical 4-chamber view). The right ventricular systolic function is normal as assessed by tricuspid annular plane systolic excursion (TAPSE) (normal >1.5 cm). * No significant valvular pathology. - Pulmonary SVC Dr. Garcia consulted etiology of PEs unclear at this time - started on heparin, transitioned to Lovenox, transitioned to Xarelto no bleeding noted - Pain Management service consulted- Dr. Griffin recommend Dilaudid JEWELRY [employer]IC pump, Medrol dosepak Nucynta PRN, Toradol PRN patient's pain adequately controlled with above - hemodynamically stable, no hypoxia pain improving - discharge plan: Xarelto 15mg BID with food x 3 weeks (received 2 days in the hospital, needs 19 more days), then 20mg po daily Nucynta 50mg QID PRN pain ( should start Vivitrol 24 hours after last dose of Nucynta/Opiate) Finish Solumedrol dose pack x 4 more days Senynes S patient advised to follow up with PCP in 3-5 days follow up with Pulmonary SVC Dr. Garcia in 2-3 weeks PERIORBITAL ERYTHEMA, PRURITUS - likely allergic reaction from Dilaudid - will prescribe Benadryl PRN - patient advised to monitor and call 911 if with dyspnea/swelling of tongue/ lips otherwise, call PCP if itching, discharge, redness worsens HISTORY OF NARCOTIC DEPENDENCE - pain management service consulted - management of pain as noted above - Vivitrol prescribed by Dr. Trammell ( should start Vivitrol 24 hours after last dose of Nucynta/Opiate) - patient advised that medications should be kept and administered by family member, he agreed CONSTIPATION - no abdominal pain - Robson Meneses daily Dispo d/c home ff up with PCP in 3-5 days ff up with Pulmonary Dr. Garcia in 2-3 weeks case discussed extensively with patient and his girlfriend at bedside including what to watch out for, bleeding precautions, follow up with PCP as directed and take medications regularly as advised also discussed case with patient's father on the phone, advised that patient's medications be under the custody of and dispensed to patient by a family member to ensure correct dosing and avoid any excessive intake they understand, agree and are comfortable with plan of care Total time spent on discharge = 55 minutes This includes examination of the patient, discharge planning, medication reconciliation, and communication with other providers. Discharge Instructions Discharge Instructions Date of Service Oct 22, 2016. Admission Reason for Admission: Bilateral Pulmonary Embolism Discharge Discharge Diagnosis / Problem: BILATERAL PULMONARY EMBOLISM Discharge Goals Goal(s): Diagnostic testing, Therapeutic intervention Activity Recommendations Activity Limitations: as noted below (NO HEAVY EXERTION UNTIL RE EVALUATED BY PRIMARY CARE PHYSICIAN) Lifting Limitations: until after follow-up appointment Exercise/Sports Limitations: until after follow-up appointment Driving or Machine Use: NO DRIVING WHILE TAKING NUCYNTA, BENDARYL . Instructions / Follow-Up Instructions / Follow-Up PLEASE REVIEW YOUR NEW MEDICATION LIST AND FOLLOW INSTRUCTIONS CAREFULLY. TAKE MEDICATIONS ONLY DIRECTED. GO TO THE ER IMMEDIATELY IF YOU HAVE ANY HEAD INJURY OR BLEEDING, COUGH, FEVER/CHILLS, NAUSEA/VOMITING, INCREASING REDNESS OR ITCHING OF YOUR SKIN. CALL 911 IMMEDIATELY IF WITH TONGUE/LIP SWELLING, SHORTNESS OF BREATH. AFTER 3 WEEKS OF XARELTO 15MG TWICE A DAY, YOU WILL NEED TO TAKE XARELTO 20MG DAILY. PLEASE REQUEST A NEW PRESCRIPTION FOR THIS FROM YOUR PRIMARY CARE PHYSICIAN. DO NOT MISS ANY DOSE. DO NOT STOP TAKING XARELTO WITHOUT DISCUSSING WITH YOUR DOCTOR FIRST. ALSO, TALK TO YOUR DOCTOR FIRST PRIOR TO STARTING ANY MEDICATION. TO PROMOTE HEALING AND MAINTAIN GOOD HEALTH, NO SMOKING, ALCOHOL, ILLICIT DRUGS. FOLLOW UP WITH PRIMARY CARE PHYSICIAN DR. JACOB ON MONDAY, OCTOBER 24, 2016 AT 2:00PM. FOLLOW UP WITH LUNG SPECIALIST DR. GARCIA IN 2-3 WEEKS. PLEASE CALL HIS OFFICE FOR APPOINTMENT. TEL. NO. Current Hospital Diet Patient's current hospital diet: Regular Diet Discharge Diet Recommended Diet: Regular Diet Procedures Procedures Performed: CT SCAN CHEST, ULTRASOUND UPPER AND LOWER EXT, ECHOCARDIOGRAM- HEART Pending Studies Studies pending at discharge: no Medical Emergencies . Who to Call and When: Medical Emergencies: If at any time you feel your situation is an emergency, please call 911 immediately. . Non-Emergent Contact Non-Emergency issues call your: Primary Care Provider, [employer] Coxswain Call Non-Emergent contact if: you have a fever, your pain is not controlled, your pain is worsening, you have any medication questions . . "Provider Documentation" section prepared by Rajeev Pearl. . VTE Core Measure Inpt VTE Proph given/why not?: Enoxaparin (Lovenox)SQ
[2016-10-23] MEDS ORDERED: METHYLPREDNISOLONE 4 MG TAB PO SCH (07:00)
[2016-10-24] MEDS ORDERED: METHYLPREDNISOLONE 4 MG TAB PO SCH (07:00)
[2016-10-25] MEDS ORDERED: METHYLPREDNISOLONE 4 MG TAB PO SCH (07:00)
== END 2016-10-22 14:50 | disposition home or self-care (01) | DRG 176 ==
LOC: C.EDB 09:50 → C.2T 13:07 → ENRESERV 13:30 → C.MSW 10-20 13:54
PROVIDERS: ADMIT Internal Medicine; ATTEND Internal Medicine
DX: I26.99 Other pulmonary embolism without acute cor pulmonale (principal); Z83.2 Family history of diseases of the blood and blood-forming organs and certain disorders involving the immune mechanism; Z87.891 Personal history of nicotine dependence; L53.9 Erythematous condition, unspecified; L29.9 Pruritus, unspecified; T40.2X5A Adverse effect of other opioids, initial encounter; F55.8 Abuse of other non-psychoactive substances; K59.00 Constipation, unspecified

== ENCOUNTER 2016-11-05 09:02 | Emergency (ER) | payer BC ==
[~2016-11-05] VITALS: Ht 182.9 cm; Wt 88.9 kg
[~2016-11-05 09:02] MED LIST changes: +ACET-1047 PO; +BND25X PO; +EFFSR375 PO; -KETO10TA PO; +MDR4 PO; +NCY50 PO; -OXYC-57 PO; +SENN8.6T7 PO; +XRL15 PO
[2016-11-05 09:03] VITALS: TEMP 36.6; Ht 182.9 cm; Wt 88.9 kg
[2016-11-05] MEDS ORDERED: SODIUM CHLORIDE 0.9% 1000ML 1,000 ML IV STA (09:22)
[2016-11-05] MEDS ORDERED: ONDANSETRON INJ 2 MG/ML 2 ML VIAL IV STA (09:22)
[2016-11-05 09:28] VITALS: O2SAT 100
[2016-11-05 09:39] LABS: BASO % 0.1 %; BASO ABS # 0.01 K/uL (0-0.2); COMPLETE YES; EOS % 0.9 %; IG% 0.1 %; LYMPH % 31.2 %; LYMPH ABS # 2.09 K/uL (1.2-3.4); MEAN CELL VOLUME 87.4 fL (80-100); MEAN CORPUSCULAR HEMOGLOBIN 30.1 pg (25-34); MEAN CORPUSCULAR HGB CONC 34.4 g/dl (32-36); MEAN PLATELET VOLUME 9.8 fL (7.4-10.4); MONO % 6.3 %; NEUT % 61.4 %; PLATELET COUNT 288 K/uL (130-400); RED BLOOD COUNT 5.15 M/uL (4.7-6.1)
--- NOTE | 2016-11-05 09:46 | EMERGENCY ROOM VISIT NOTE ---
History Report prepared by Parishibmayela: Kelli Redman Under the Supervision of: Dr. Dyllan Retana D.O. First contact with patient: 09:10 Chief Complaint: RESPIRATORY PROBLEMS Stated Complaint: BODY ACHES, CHEST PAIN, TROUBLE BREATHING Nursing Triage Summary: pt c/o feeling constricted in throat and trouble breathing for past month. pt was dx with blood clots in lungs 2 weeks ago and was placed xarelto. pt c/o increased trouble breathing for past 2 weeks. intermittent left sided chest pain for past two weeks. body aches since this AM. History of Present Illness The patient is a 25 year old male who presents to the Emergency Room with complaints of chest pain and body aches as well as sore throat. The patient was recently in our facility and discharged on Xaralto for pulmonary embolism which was diagnosed 2 weeks ago. The patient states he continues to have chest pain as well as shortness of breath. He has shortness breath with exertion as well as back pain. He also complains of muscle aches. He also states he has a feeling that his throat is closing and has a sore throat. He denies having any vomiting but does complain of nausea. He denies having any belly pain and rectal bleeding. The patient states that he is out of his pain medication that he was taking. He has been trying [id number] medication without relief. He states that he has been compliant with his prescription medications. Source of History: patient Onset: 1 month HOT [employer] Position: chest Timing: other (persistent) Modifying Factors (Worsening): exertion Associated Symptoms: + sorethroat, + nausea, + back pain, No vomiting, No abdominal pain Review of Systems See HPI for pertinent positives & negatives. A total of 10 systems reviewed and were otherwise negative. Past Medical & Surgical Medical Problems: (1) Depression (2) History of narcotic addiction (3) Polysubstance abuse Family History FH: anemia MOTHER Social History Smoking Status: Never Smoker Alcohol Use: occasionally Drug Use: other Marital Status: single Housing Status: lives with family Occupation Status: employed Current/Historical Medications Scheduled Paroxetine (Paroxetine HCl), 10 MG PO QAM Rivaroxaban (Xarelto), 15 MG PO BIDM Scheduled PRN Acetaminophen (Mapap), 650 MG PO Q6H PRN for Pain or Fever Alprazolam (Alprazolam), 0.5 MG PO BID PRN for Anxiety Dexmethylphenidate Hcl (Dexmethylphenidate Hcl), 10 MG PO BID PRN for FOR SCHOOL Diphenhydramine HCl (Diphenhydramine HCl), 25 MG PO Q6H PRN for itching Oxycodone Immediate Rel Tab (Roxicodone Ir), 1-2 TAB PO Q4H PRN for Severe Pain Senna/Docusate Sod (Senokot S), 1 TAB PO DAILY PRN for Constipation Tapentadol HCl (Nucynta), 50 MG PO Q6H PRN for Pain Allergies Coded Allergies: No Known Allergies (Unverified , 11/05/16) Physical Exam Vital Signs Date Time Temp Pulse Resp B/P (MAP) Pulse Ox O2 Delivery O2 Flow Rate FiO2 11/05/16 11:52 72 11/05/16 11:44 73 18 139/87 98 Room Air 11/05/16 11:00 81 18 132/85 98 Room Air 11/05/16 09:58 86 16 125/86 100 Room Air 11/05/16 09:28 100 Room Air 11/05/16 09:28 100 Room Air 11/05/16 09:24 90 11/05/16 09:17 99 Room Air 11/05/16 09:07 99 Room Air 11/05/16 09:03 36.6 97 20 137/84 98 Room Air Physical Exam GENERAL: Patient is awake, alert, in no acute distress patient is resting comfortably and showing no signs of anxiety EYES: The conjunctivae are clear. The pupils are round and reactive. EARS, NOSE, MOUTH AND THROAT: The nose is without any evidence of any deformity. Mucous membranes are moist tongue is midline NECK: The neck is nontender and supple. RESPIRATORY: Normal respiratory effort is noted there is no evidence of wheezing rhonchi or rales CARDIOVASCULAR: Regular rate and rhythm noted there no murmurs rubs or gallops normal S1 normal S2 GASTROINTESTINAL: The abdomen is soft. Bowel sounds are present in all quadrants. Abdomen is nontender BACK: No midline tenderness was noted. There is diffuse tenderness noted over the paraspinous musculature. Range of motion appeared intact. MUSCULOSKELETAL/EXTREMITIES: There is no evidence of gross deformity full range of motion is noted in the hips and shoulders SKIN: There is no obvious evidence of any rash. There are no petechiae, pallor or cyanosis noted. NEUROLOGIC: Patient is awake alert and oriented x3 strength is symmetric patellar reflexes are 2+ bilaterally Medical Decision & Procedures ER Provider Diagnostic Interpretation: Radiology results as stated below per my review and radiologist interpretation: CHEST ONE VIEW PORTABLE HISTORY: Atypical CHEST PAIN COMPARISON: Chest 10/19/2016. FINDINGS: The lungs are clear. Cardiac silhouette is normal in size. No pleural effusions. No pneumothorax. Orthopedic screws within the right glenoid, unchanged. IMPRESSION: No acute process. Electronically signed by: Yonas Parrish M.D. 11/05/2016 9:50 AM BILATERAL LOWER EXTREMITY VENOUS DOPPLER HISTORY: Assess for DVT. Recent PE , new onset atypical chest pain. COMPARISON STUDY: None. FINDINGS: There is normal compressibility, flow, and augmentation within the bilateral lower extremity deep venous systems. IMPRESSION: No DVT within the right or left lower extremity. Electronically signed by: Yonas Parrish M.D. 11/05/2016 10:56 AM Laboratory Results 11/05/16 09:20 Red Blood Count 5.15, Mean Corpuscular Volume 87.4, Mean Corpuscular Hemoglobin 30.1, Mean Corpuscular Hemoglobin Concent 34.4, Mean Platelet Volume 9.8, Neutrophils (%) (Auto) 61.4, Lymphocytes (%) (Auto) 31.2, Monocytes (%) (Auto) 6.3, Eosinophils (%) (Auto) 0.9, Basophils (%) (Auto) 0.1, Neutrophils # (Auto) 4.11, Lymphocytes # (Auto) 2.09, Monocytes # (Auto) 0.42, Eosinophils # (Auto) 0.06, Basophils # (Auto) 0.01 11/05/16 09:20 Test 11/05/16 09:20 11/05/16 10:02 White Blood Count 6.70 K/uL (4.8-10.8) Red Blood Count 5.15 M/uL (4.7-6.1) Hemoglobin 15.5 g/dL (14.0-18.0) Hematocrit 45.0 % (42-52) Mean Corpuscular Volume 87.4 fL (80-100) Mean Corpuscular Hemoglobin 30.1 pg (25-34) Mean Corpuscular Hemoglobin Concent 34.4 g/dl (32-36) Platelet Count 288 K/uL (130-400) Mean Platelet Volume 9.8 fL (7.4-10.4) Neutrophils (%) (Auto) 61.4 % Lymphocytes (%) (Auto) 31.2 % Monocytes (%) (Auto) 6.3 % Eosinophils (%) (Auto) 0.9 % Basophils (%) (Auto) 0.1 % Neutrophils # (Auto) 4.11 K/uL (1.4-6.5) Lymphocytes # (Auto) 2.09 K/uL (1.2-3.4) Monocytes # (Auto) 0.42 K/uL (0.11-0.59) Eosinophils # (Auto) 0.06 K/uL (0-0.5) Basophils # (Auto) 0.01 K/uL (0-0.2) RDW Standard Deviation 41.6 fL (36.4-46.3) RDW Coefficient of Variation 12.9 % (11.5-14.5) Immature Granulocyte % (Auto) 0.1 % Immature Granulocyte # (Auto) 0.01 K/uL (0.00-0.02) Anion Gap 7.0 mmol/L (3-11) Est Creatinine Clear Calc Drug Dose 105.1 ml/min Estimated GFR () 98.2 Estimated GFR (Non- 84.7 BUN/Creatinine Ratio 10.4 (10-20) Calcium Level 9.4 mg/dl (8.5-10.1) Total Bilirubin 0.8 mg/dl (0.2-1) Direct Bilirubin 0.1 mg/dl (0-0.2) Aspartate Amino Transf (AST/SGOT) 16 U/L (15-37) Alanine Aminotransferase (ALT/SGPT) 20 U/L (12-78) Alkaline Phosphatase 67 U/L (45-117) Total Creatine Kinase 94 U/L (39-308) Creatine Kinase MB 0.5 ng/ml (0.5-3.6) Creatine Kinase MB Ratio 0.5 (0-3.0) Troponin I < 0.015 ng/ml (0-0.045) Total Protein 8.8 gm/dl (6.4-8.2) Albumin 4.2 gm/dl (3.4-5.0) Lipase 97 U/L (73-393) Prothrombin Time 12.2 SECONDS (9.0-12.0) Prothromb Time International Ratio 1.1 (0.9-1.1) Activated Partial Thromboplast Time 29.1 SECONDS (21.0-31.0) Partial Thromboplastin Ratio 1.1 Laboratory results per my review. Medications Administered Medications (Trade) Dose Ordered Sig/Saud Route Start Time Stop Time Status Last Admin Dose Admin Sodium Chloride 1,000 ml @ 999 mls/hr Q1H1M STAT IV 11/05/16 09:22 11/05/16 10:22 DC 11/05/16 09:33 999 MLS/HR Ondansetron HCl (Zofran Inj) 4 mg NOW STAT IV 11/05/16 09:22 11/05/16 09:24 DC 11/05/16 09:33 4 MG ECG Indication: SOB/dyspnea Rate (beats per minute): 91 Rhythm: normal sinus Findings: no ectopy, other (No acute ST segments) Change: no significant change (No change from EKG performed on October 21, 2016) ED Course 0920: The patient was evaluated in room B6. A complete history and physical examination were performed. 0922: Zofran 4 mg IV, NSS 1000 ml @ 999 mls/hr IV. 1136: I reevaluated the patient. He is feeling much better. I discussed his results and discharge instructions and he verbalized complete understanding and agreement. Medical Decision Prior records/ancillary studies reviewed. Triage Nursing notes reviewed. The patient's history was concerning for chest pain. Differential diagnosis: Etiologies such as cardiac ischemia, aortic dissection, pulmonary embolism, pneumonia, pneumothorax, musculoskeletal, infections, pericarditis, myocarditis , esophageal rupture, gastrointestinal, as well as others were entertained. The patient is a 25-year-old male who presented to the emergency department for an evaluation of chest pain as well as back pain and body aches. The patient was recently diagnosed with a pulmonary embolism and was started on blood thinners. The patient states that he has been compliant with his medications. The patient did not have hypoxia or tachycardia. I discussed the patient's laboratory and radiographic studies with him. He was treated with IV fluids and antiemetics in the emergency department. I did review the patient's previous electronic medical records. It does appear that he has had a problem with recreational drug abuse in the past and I'm very reluctant to give the patient any controlled substances. I did review his recent controlled substance prescriptions on the PDMP and he was forthcoming in truthful about prescriptions he's had filled recently. The patient was given a very small amount of pain medication and was encouraged to follow-up with his primary care physician within the next 24-48 hours. Otherwise I do not feel the patient requires a repeat CAT scan of his chest at this time. Dopplers of the lower extremity did not reveal any DVT. He was encouraged to return to the emergency department immediately if symptoms change worsen or the need arises. [place] Drug Monitoring Program Search Results: patient reviewed within database, no issues identified (I reviewed the patients recent prescriptions and have discussed them with the patient) Medication Reconcilliation Current Medication List: was personally reviewed by me Blood Pressure Screening Patient's blood pressure: Normal blood pressure Impression Primary Impression: Pleuritic chest pain Additional Impression: Back pain Scribe Attestation The scribe's documentation has been prepared under my direction and personally reviewed by me in its entirety. I confirm that the note above accurately reflects all work, treatment, procedures, and medical decision making performed by me. Departure Information Dispostion Home / Self-Care Prescriptions Oxycodone Immediate Rel Tab (ROXICODONE IR) 5 Mg Tab 1-2 TAB PO Q4H Y for Severe Pain, #15 TAB Prov: Dyllan Retana, 11/05/16 Referrals Edd Leon, D.OCarloz (PCP) Patient Instructions ED Chest Pain Atypical Unkn Cause, My [facility] Additional Instructions Continue all medications as prescribed. Continue using Motrin and Tylenol for mild pain. Call your family doctor in the morning to schedule a follow-up appointment. Problem Qualifiers Additional Impression: Back pain Back pain location: back pain in unspecified location Chronicity: unspecified Back pain laterality: unspecified Qualified Codes: M54.9 - Dorsalgia, unspecified
--- NOTE | 2016-11-05 09:52 | DIAGNOSTIC IMAGING REPORT ---
CHEST ONE VIEW PORTABLE HISTORY: Atypical CHEST PAIN COMPARISON: Chest 10/19/2016. FINDINGS: The lungs are clear. Cardiac silhouette is normal in size. No pleural effusions. No pneumothorax. Orthopedic screws within the right glenoid, unchanged. IMPRESSION: No acute process. Electronically signed by: Yonas Parrish M.D. 11/05/2016 9:50 AM Dictated Date/Time: 11/05/2016 9:47 AM
[2016-11-05 09:57] LABS: ALT/SGPT 20 U/L (12-78); BLOOD UREA NITROGEN 13 mg/dl (7-18); BUN/CREATININE RATIO 10.4 (10-20); CALCIUM 9.4 mg/dl (8.5-10.1); CARBON DIOXIDE 27 mmol/L (21-32); CHLORIDE 104 mmol/L (98-107); GLUCOSE 140 mg/dl (70-99); POTASSIUM 3.7 mmol/L (3.5-5.1); SODIUM 138 mmol/L (136-145)
[2016-11-05 10:02] LABS: ALKALINE PHOSPHATASE 67 U/L (45-117); AST/SGOT 16 U/L (15-37); CKMB/CK RATIO 0.5 (0-3.0)
[2016-11-05] MEDS ORDERED: DEXM10TA2 PO (10:10)
[2016-11-05] MEDS ORDERED: SENN-65 PO (10:10)
[2016-11-05] MEDS ORDERED: PXL/10 PO (10:10)
[2016-11-05 10:29] LABS: INR 1.1 (0.9-1.1); PARTIAL THROMBOPLASTIN RATIO 1.1; PROTHROMBIN TIME (PATIENT) 12.2 SECONDS (9.0-12.0)
--- NOTE | 2016-11-05 10:58 | DIAGNOSTIC IMAGING REPORT ---
BILATERAL LOWER EXTREMITY VENOUS DOPPLER HISTORY: Assess for DVT. recent PE , new onset atypical chest pain. COMPARISON STUDY: None. FINDINGS: There is normal compressibility, flow, and augmentation within the bilateral lower extremity deep venous systems. IMPRESSION: No DVT within the right or left lower extremity. Electronically signed by: Yonas Parrish M.D. 11/05/2016 10:56 AM Dictated Date/Time: 11/05/2016 10:56 AM
[2016-11-05 11:44] VITALS: BP 139/87; O2SAT 98
[2016-11-05] MEDS ORDERED: OXYC1TAB3 PO (11:44)
[2016-11-05 11:52] VITALS: PULSE 72
== END 2016-11-05 11:50 | disposition home or self-care (01) ==
LOC: C.EDB 09:03
DX: R07.81 Pleurodynia (principal); M54.9 Dorsalgia, unspecified; Z86.711 Personal history of pulmonary embolism; F32.9 Major depressive disorder, single episode, unspecified; F19.10 Other psychoactive substance abuse, uncomplicated; Z79.01 Long term (current) use of anticoagulants; Z79.899 Other long term (current) drug therapy

== ENCOUNTER 2016-11-18 13:47 | Emergency (ER) | payer BC ==
[~2016-11-18] VITALS: Ht 182.9 cm; Wt 88.6 kg
[~2016-11-18 13:47] MED LIST changes: +DEXM10TA2 PO; -EFFSR375 PO; -MDR4 PO; +OXYC1TAB3 PO; +PXL/10 PO; +SENN-65 PO; -SENN8.6T7 PO
[2016-11-18 13:50] VITALS: TEMP 36.9; Ht 182.9 cm; Wt 88.6 kg
[2016-11-18] MEDS ORDERED: CLON0.5T3 PO (14:28)
--- NOTE | 2016-11-18 14:28 | EMERGENCY ROOM VISIT NOTE ---
History First contact with patient: 14:09 Chief Complaint: ILLNESS Stated Complaint: STOMACH PAIN,BODY ACHES,NAUSEA,SOB,THROWING UP BLO History of Present Illness The patient is a 26 year old male who presents to the Emergency Room with complaints of left lower quadrant abdominal pain, constipation and vomiting that started 2 days ago. The patient denies any chronic history of constipation. He reports not being able to keep down any fluids. The pain is sharp, stabbing in nature. It is constant. No exacerbating factors. He denies any fever , chills or sweats. No sick contacts. He denies any dysuria, hematuria or flank pain. Review of Systems 10 system review performed and negative unless noted in HPI or below Past Medical/Surgical History Medical Problems: (1) Depression (2) History of narcotic addiction (3) Polysubstance abuse Pulmonary embolus on chronic anticoagulation Right shoulder surgery Family History FH: anemia MOTHER Social History Smoking Status: Never Smoker Alcohol Use: occasionally Drug Use: other Marital Status: single Housing Status: lives with family Occupation Status: employed Current/Historical Medications Scheduled Clonazepam (Klonopin), 0.5 MG PO BID Ondasetron Odt (Zofran Odt), 4 MG SL Q6H Paroxetine (Paroxetine HCl), 10 MG PO QAM Rivaroxaban (Xarelto), 15 MG PO BIDM Scheduled PRN Dexmethylphenidate Hcl (Dexmethylphenidate Hcl), 10 MG PO BID PRN for FOR SCHOOL Physical Exam Vital Signs Date Time Temp Pulse Resp B/P (MAP) Pulse Ox O2 Delivery O2 Flow Rate FiO2 11/18/16 18:52 91 18 121/87 100 11/18/16 17:50 93 18 121/87 100 Room Air 11/18/16 15:55 93 18 141/88 100 Room Air 11/18/16 14:12 106 11/18/16 13:50 36.9 74 18 131/92 96 Room Air Physical Exam VITALS: Vitals are noted on the nurse's note and reviewed by myself. Vital signs stable. GENERAL: 26-year-old male, tearful in appearance,, SKIN: The skin was without rashes, erythema, edema, or bruising. HEAD: Normocephalic atraumatic. MOUTH: Mucous membranes dry NECK: Supple without nuchal rigidity.No JVD. HEART: Regular rate and rhythm without murmurs gallops or rubs. LUNGS: Clear to auscultation bilaterally without wheezes, rales or rhonchi. No accessory muscle use. ABDOMEN: Positive bowel sounds x 4.Soft, tenderness to palpation in the left lower quadrant. No guarding or rebound tenderness. Also mild tenderness over the suprapubic region. MUSCULOSKELETAL: No muscle atrophy, erythema, or edema noted. . Strength 5/5 throughout. NEURO: Patient was alert and oriented to person place and time. Normal sensation to touch. No focal neurological deficits. Medical Decision & Procedures ER Provider Diagnostic Interpretation: ABDOMEN 2VIEW W/PA CHEST RTN CLINICAL HISTORY: 26 years-old Male presenting with left lower quadrant abdominal pain, nausea and constipation. TECHNIQUE: PA view of the chest and supine and upright views of the abdomen were obtained. COMPARISON: 11/05/2016. FINDINGS: Cardiomediastinal silhouette normal. Lungs and pleural spaces clear. Moderate stool burden throughout the colon. Nonobstructive bowel gas pattern. No evidence of free intraperitoneal gas, pneumatosis, or portal venous gas. No calcifications project over the kidneys allowing for the presence of stool. Single right pelvic phlebolith noted. 2 screw fixation through the right glenoid unchanged. IMPRESSION: 1. No acute cardiopulmonary disease. 2. Moderate stool burden consistent with constipation. Electronically signed by: Catrachito García M.D. 11/18/2016 3:05 PM Dictated Date/Time: 11/18/2016 3:04 PM The status of this report is Signed. Draft = Not yet reviewed or approved by Radiologist. Signed = Reviewed and approved by Radiologist. <AttendingPhy></AttendingPhy> <FamilyPhy>Edd Leon DCarlozO.</FamilyPhy> < PrimaryPhy>Edd Leon DCarlozO.</PrimaryPhy> <UnitNumber>[id number]</ UnitNumber> <VisitNumber>[id number]</VisitNumber> <PatientName>HARINI GHOTRA III</PatientName> <DateOfBirth>1990</DateOfBirth> <Location>[facility]</ Location> <ServiceDate>11/18/16</ServiceDate> <MNE>ESINDI</MNE> <OrderingPhy> [facility] Results 11/18/16 14:10 Red Blood Count 4.65, Mean Corpuscular Volume 86.0, Mean Corpuscular Hemoglobin 29.9, Mean Corpuscular Hemoglobin Concent 34.8, Mean Platelet Volume 9.9, Neutrophils (%) (Auto) 54.3, Lymphocytes (%) (Auto) 34.2, Monocytes (%) (Auto) 9.5, Eosinophils (%) (Auto) 1.5, Basophils (%) (Auto) 0.3, Neutrophils # (Auto) 3.30, Lymphocytes # (Auto) 2.08, Monocytes # (Auto) 0.58, Eosinophils # (Auto) 0.09, Basophils # (Auto) 0.02 11/18/16 14:10 Test 11/18/16 14:10 11/18/16 16:15 White Blood Count 6.08 K/uL (4.8-10.8) Red Blood Count 4.65 M/uL (4.7-6.1) Hemoglobin 13.9 g/dL (14.0-18.0) Hematocrit 40.0 % (42-52) Mean Corpuscular Volume 86.0 fL (80-100) Mean Corpuscular Hemoglobin 29.9 pg (25-34) Mean Corpuscular Hemoglobin Concent 34.8 g/dl (32-36) Platelet Count 232 K/uL (130-400) Mean Platelet Volume 9.9 fL (7.4-10.4) Neutrophils (%) (Auto) 54.3 % Lymphocytes (%) (Auto) 34.2 % Monocytes (%) (Auto) 9.5 % Eosinophils (%) (Auto) 1.5 % Basophils (%) (Auto) 0.3 % Neutrophils # (Auto) 3.30 K/uL (1.4-6.5) Lymphocytes # (Auto) 2.08 K/uL (1.2-3.4) Monocytes # (Auto) 0.58 K/uL (0.11-0.59) Eosinophils # (Auto) 0.09 K/uL (0-0.5) Basophils # (Auto) 0.02 K/uL (0-0.2) RDW Standard Deviation 40.0 fL (36.4-46.3) RDW Coefficient of Variation 12.6 % (11.5-14.5) Immature Granulocyte % (Auto) 0.2 % Immature Granulocyte # (Auto) 0.01 K/uL (0.00-0.02) Anion Gap 9.0 mmol/L (3-11) Est Creatinine Clear Calc Drug Dose 113.7 ml/min Estimated GFR () 108.3 Estimated GFR (Non- 93.5 BUN/Creatinine Ratio 11.0 (10-20) Calcium Level 9.9 mg/dl (8.5-10.1) Total Bilirubin 0.9 mg/dl (0.2-1) Aspartate Amino Transf (AST/SGOT) 26 U/L (15-37) Alanine Aminotransferase (ALT/SGPT) 23 U/L (12-78) Alkaline Phosphatase 65 U/L (45-117) Total Protein 8.0 gm/dl (6.4-8.2) Albumin 4.2 gm/dl (3.4-5.0) Globulin 3.8 gm/dl (2.5-4.0) Albumin/Globulin Ratio 1.1 (0.9-2) Lipase 73 U/L (73-393) Urine Color YELLOW Urine Appearance CLEAR (CLEAR) Urine pH 8.0 (4.5-7.5) Urine Specific Newcomb 1.017 (1.000-1.030) Urine Protein NEG (NEG) Urine Glucose (UA) NEG (NEG) Urine Ketones 2+ (NEG) Urine Occult Blood NEG (NEG) Urine Nitrite NEG (NEG) Urine Bilirubin NEG (NEG) Urine Urobilinogen NEG (NEG) Urine Leukocyte Esterase NEG (NEG) Urine Opiates Screen POS (NEG) Urine Methadone, Qualitative NEG (NEG) Urine Barbiturates NEG (NEG) Urine Phencyclidine (PCP) Level NEG (NEG) Ur Amphetamine/Methamphetamine NEG (NEG) MDMA (Ecstasy) Screen NEG (NEG) Urine Benzodiazepines Screen NEG (NEG) Urine Cocaine Metabolite NEG (NEG) Urine Marijuana (THC) NEG (NEG) Medications Administered Medications (Trade) Dose Ordered Sig/Saud Route Start Time Stop Time Status Last Admin Dose Admin Sodium Chloride 1,000 ml @ 999 mls/hr Q1H1M ONCE IV 11/18/16 14:30 11/18/16 15:30 DC 11/18/16 14:36 999 MLS/HR Sodium Chloride 1,000 ml @ 999 mls/hr Q1H1M ONCE IV 11/18/16 14:30 11/18/16 15:30 DC 11/18/16 14:36 999 MLS/HR Ondansetron HCl (Zofran Inj) 4 mg Q2H PRN IV 11/18/16 14:30 11/18/16 20:14 DC 11/18/16 17:43 4 MG Morphine Sulfate (MoRPHine SULFATE INJ) 4 mg ONE STAT IV 11/18/16 14:34 11/18/16 14:35 DC 11/18/16 14:38 4 MG Metoclopramide HCl (Reglan Inj) 10 mg NOW STAT IV 11/18/16 15:28 11/18/16 15:30 DC 11/18/16 15:53 10 MG Magnesium Citrate (Citrate Of Magnesia Soln) 296 ml NOW ONCE PO 11/18/16 15:30 11/18/16 15:31 DC 11/18/16 15:53 296 ML Hydromorphone HCl (Dilaudid Inj) 1 mg ONE STAT IV 11/18/16 17:04 11/18/16 17:13 DC 11/18/16 17:43 1 MG ED Course Patient was seen and examined Vital signs including blood pressure were reviewed medications list was verified with patient Labs were obtained, and a saline lock was established and the patient was given Zofran 4 mg IV. He was hydrated with 2 L of normal saline. The patient was reassessed and still having pain and nausea. He was given morphine 4 mg IV and Zofran 4 mg IV Imaging was performed and reviewed I again assess the patient. He was still having pain and nausea. He was given Dilaudid 1 mg IV and Reglan 10 mg IV The patient was given a dose of mag citrate His pain finally was coming down. He denied any nausea. He was tolerating liquids. We discussed his workup. He voiced understanding. I reviewed the patient's prescriptions on the PDMP website I reviewed dis the instructions the patient. They voiced understanding and had no further questions. Medical Decision DIFFERENTIAL DIAGNOSIS: Opiate withdrawal, constipation, drug abuse Gastroenteritis, Hepatitis, cholecystitis, cholangitis, biliary colic, pancreatitis, appendicitis, inguinal hernia, nephrolithiasis, inflammatory bowel disease, mesenteric adenitis, peptic ulcer disease, GERD, gastritis, pancreatitis,, bowel obstruction, splenic infarct, diverticulitis, mesenteric ischemia, metabolic, peritonitis, among others. This patient is a 26-year-old male that presented to the emergency department with left lower quadrant abdominal pain and vomiting. On exam, he did have mild tenderness in the left lower quadrant without any guarding or rebound tenderness. There were no signs of peritonitis. He is afebrile. There is no leukocytosis. I do not suspect an acute abdomen. Imaging was performed consistent with moderate fecal load/constipation. This is likely contributing to his symptoms. This is likely secondary to drug abuse. The patient has a history of heroin and opiate abuse. The patient's prescriptions were reviewed in the PDMP. He has had numerous prescriptions from different providers of narcotics and benzodiazepines. His tox screen did come back positive for opiates He was educated on a bowel regimen. He was encouraged to follow-up with his primary care physician in addition to pain management. He will return to the emergency department with any new or worsening symptoms. Medication Reconcilliation Current Medication List: was personally reviewed by me Blood Pressure Screening Patient's blood pressure: Normal blood pressure Impression Primary Impression: Constipation Additional Impressions: Polysubstance abuse History of narcotic addiction Departure Information Dispostion Home / Self-Care Condition GOOD Prescriptions Ondasetron Odt (ZOFRAN ODT) 4 Mg Tab 4 MG SL Q6H for Nausea, #15 TAB Prov: Astrid Whalen PA-C 11/18/16 Referrals Edd Leon, Brian.OCarloz (PCP) Patient Instructions Calcium Carbonate Psyllium Oral capsule, My [facility] Additional Instructions You were evaluated in the emergency department for abdominal pain. The workup performed is consistent with constipation. This is likely causing your pain. You can find magnesium citrate [id number]. This may be taken once daily as needed for constipation Zofran 4 mg tabs every 6 hours as needed for nausea It is important to stay well hydrated and eat fruits and vegetables. This will help you avoid constipation in the future. Please follow-up with your primary care physician within 2 days for a recheck. Please also follow up with your pain management doctor It is very important to avoid narcotics as this will make your constipation worse Return to the emergency department if you have any of the following symptoms: -Fever of 101F or greater -Persistent vomiting - Persistent diarrhea -Lethargy -Chest pain -Shortness of breath -Worsening pain Problem Qualifiers
[2016-11-18] MEDS ORDERED: SODIUM CHLORIDE 0.9% 1000ML 1,000 ML IV ONE ×2 (14:30)
[2016-11-18] MEDS ORDERED: MoRPHine SULFATE 4 MG/ML 1 ML CARP\\VIAL IV STA (14:34)
[2016-11-18] MEDS: ONDANSETRON INJ 2 MG/ML 2 ML VIAL IV PRN ×2 (14:36→17:43)
[2016-11-18 14:56] LABS: BASO % 0.3 %; BASO ABS # 0.02 K/uL (0-0.2); COMPLETE YES; EOS % 1.5 %; IG% 0.2 %; LYMPH % 34.2 %; LYMPH ABS # 2.08 K/uL (1.2-3.4); MEAN CORPUSCULAR HEMOGLOBIN 29.9 pg (25-34); MEAN CORPUSCULAR HGB CONC 34.8 g/dl (32-36); MEAN PLATELET VOLUME 9.9 fL (7.4-10.4); MONO % 9.5 %; NEUT % 54.3 %; PLATELET COUNT 232 K/uL (130-400); RED BLOOD COUNT 4.65 M/uL (4.7-6.1); WHITE BLOOD COUNT 6.08 K/uL (4.8-10.8)
[2016-11-18 15:06] LABS: CALCIUM 9.9 mg/dl (8.5-10.1); CREATININE 1.1 mg/dl (0.60-1.40); POTASSIUM 3.5 mmol/L (3.5-5.1)
--- NOTE | 2016-11-18 15:07 | DIAGNOSTIC IMAGING REPORT ---
ABDOMEN 2VIEW W/PA CHEST RTN CLINICAL HISTORY: 26 years-old Male presenting with left lower quadrant abdominal pain, nausea and constipation. TECHNIQUE: PA view of the chest and supine and upright views of the abdomen were obtained. COMPARISON: 11/05/2016. FINDINGS: Cardiomediastinal silhouette normal. Lungs and pleural spaces clear. Moderate stool burden throughout the colon. Nonobstructive bowel gas pattern. No evidence of free intraperitoneal gas, pneumatosis, or portal venous gas. No calcifications project over the kidneys allowing for the presence of stool. Single right pelvic phlebolith noted. 2 screw fixation through the right glenoid unchanged. IMPRESSION: 1. No acute cardiopulmonary disease. 2. Moderate stool burden consistent with constipation. Electronically signed by: Catrachito García M.D. 11/18/2016 3:05 PM Dictated Date/Time: 11/18/2016 3:04 PM
[2016-11-18 15:09] LABS: ALB/GLOB RATIO 1.1 (0.9-2)
[2016-11-18] MEDS ORDERED: METOCLOPRAMIDE HCL INJ 5 MG/ML 2 ML VIAL IV STA (15:28)
[2016-11-18] MEDS ORDERED: MAGNESIUM CITRATE 296 ML/BTL PO ONE (15:30)
[2016-11-18] MEDS ORDERED: MoRPHine SULFATE 4 MG/ML 1 ML CARP\\VIAL IV PRN (16:15)
[2016-11-18 16:24] LABS: URINE APPEARANCE CLEAR (CLEAR); URINE BILIRUBIN NEG (NEG); URINE COLOR YELLOW; URINE NITRITE NEG (NEG); URINE SPECIFIC GRAVITY 1.017 (1.000-1.030); UROBILINOGEN NEG (NEG)
[2016-11-18 16:25] LABS: MANUAL MICROSCOPIC REQUIRED? NO; REVIEW REQ? NO
[2016-11-18 16:45] LABS: BENZODIAZEPINE, URINE NEG (NEG); COCAINE,URINE NEG (NEG); PHENCYCLIDINE, URINE NEG (NEG)
[2016-11-18] MEDS ORDERED: HYDROmorphone INJ 1 MG/ML SYR IV STA (17:04)
[2016-11-18] MEDS ORDERED: ONDA4TAB10 SL (18:43)
[2016-11-18 18:52] VITALS: BP 121/87; PULSE 91; O2SAT 100
[2016-11-19] MEDS ORDERED: ZOFRAN ODT PO (09:39)
[2016-11-19] MEDS ORDERED: PARO10TA4 PO (09:43)
[2016-11-19] MEDS ORDERED: RIVA1.5T PO (09:43)
[2016-11-19] MEDS ORDERED: OMEP40CA41 PO (15:46)
[2016-11-19] MEDS ORDERED: DICY20TA35 PO (15:46)
[2016-11-19] MEDS ORDERED: AMOX875T PO (18:14)
[2016-11-22 03:10] LABS: COD UR NEGATIVE NG/ML (CUTOFF=50); HYDROCOD UR NEGATIVE NG/ML (CUTOFF=50); HYDROMOR UR NEGATIVE NG/ML (CUTOFF=50); MORPHINE UR 941 NG/ML (CUTOFF=50); NORHYDROCODONE CONF UR NEGATIVE NG/ML (CUTOFF=50); OXYMORPH UR NEGATIVE NG/ML (CUTOFF=50)
== END 2016-11-18 18:50 | disposition home or self-care (01) ==
LOC: C.EDB 13:48 → C.EDC 18:50
DX: K59.00 Constipation, unspecified (principal); F19.10 Other psychoactive substance abuse, uncomplicated; Z87.898 Personal history of other specified conditions; F32.9 Major depressive disorder, single episode, unspecified; Z79.01 Long term (current) use of anticoagulants; Z86.718 Personal history of other venous thrombosis and embolism; Z83.2 Family history of diseases of the blood and blood-forming organs and certain disorders involving the immune mechanism

== ENCOUNTER 2016-11-19 09:11 | Emergency (ER) | payer BC ==
[~2016-11-19] VITALS: Ht 182.9 cm; Wt 89.9 kg
[~2016-11-19 09:11] MED LIST changes: -ACET-1047 PO; -ALPR-411 PO; -BND25X PO; +CLON0.5T3 PO; -NCY50 PO; +ONDA4TAB10 SL; -OXYC1TAB3 PO; -SENN-65 PO
[2016-11-19 09:19] VITALS: TEMP 36.4; Ht 182.9 cm; Wt 89.9 kg
[2016-11-19] MEDS ORDERED: ZOFRAN ODT PO (09:39)
[2016-11-19] MEDS ORDERED: RIVA1.5T PO (09:43)
[2016-11-19] MEDS ORDERED: PARO10TA4 PO (09:43)
[2016-11-19] MEDS ORDERED: PROMETHAZINE HCL INJ 25 MG in SODIUM CHLORIDE 0.9% 50ML 50 ML IV STA (09:50)
[2016-11-19] MEDS ORDERED: SODIUM CHLORIDE 0.9% 1000ML 1,000 ML IV STA (09:50)
[2016-11-19] MEDS ORDERED: DICYCLOMINE HCL 10 MG/ML 2 ML AMP IM ONE (10:00)
[2016-11-19] MEDS ORDERED: OPTIRAY 320 IV PRN (10:00)
[2016-11-19 11:02] LABS: BASO % 0.2 %; BASO ABS # 0.01 K/uL (0-0.2); COMPLETE YES; EOS % 2.3 %; HEMATOCRIT 37.8 % (42-52); IG% 0.2 %; LYMPH % 33.6 %; LYMPH ABS # 1.87 K/uL (1.2-3.4); MEAN CELL VOLUME 85.7 fL (80-100); MEAN CORPUSCULAR HEMOGLOBIN 30.2 pg (25-34); MEAN CORPUSCULAR HGB CONC 35.2 g/dl (32-36); MEAN PLATELET VOLUME 9.9 fL (7.4-10.4); MONO % 10.8 %; NEUT % 52.9 %; PLATELET COUNT 207 K/uL (130-400); RED BLOOD COUNT 4.41 M/uL (4.7-6.1); WHITE BLOOD COUNT 5.56 K/uL (4.8-10.8)
[2016-11-19 11:38] LABS: ALKALINE PHOSPHATASE 54 U/L (45-117); ALT/SGPT 21 U/L (12-78); BLOOD UREA NITROGEN 8 mg/dl (7-18); BUN/CREATININE RATIO 7.7 (10-20); CALCIUM 8.7 mg/dl (8.5-10.1); CARBON DIOXIDE 29 mmol/L (21-32); CHLORIDE 108 mmol/L (98-107); GLUCOSE 73 mg/dl (70-99); SODIUM 141 mmol/L (136-145)
[2016-11-19 11:52] LABS: URINE APPEARANCE TURBID (CLEAR); URINE BILIRUBIN NEG (NEG); URINE COLOR YELLOW; URINE NITRITE NEG (NEG); URINE PH 8.5 (4.5-7.5); URINE SPECIFIC GRAVITY 1.018 (1.000-1.030); UROBILINOGEN NEG (NEG); ZZUR CULT IF INDIC CLEAN CATCH NO
[2016-11-19 11:58] LABS: MANUAL MICROSCOPIC REQUIRED? NO; REVIEW REQ? YES
--- NOTE | 2016-11-19 12:32 | DIAGNOSTIC IMAGING REPORT ---
(CHEST FOR PE) ANGIO WITH CT DOSE: 1419.03 mGycm HISTORY: 26 years-old Male presents with acute chest pain. History of pulmonary emboli. TECHNIQUE: Multiple CTA images of the chest were obtained after the intravenous administration of 93 ml Optiray 320. Coronal and sagittal MIPS were obtained from the axial data set and were submitted for review. A dose lowering technique was utilized adhering to the principles of ALARA. COMPARISON: CTA of the chest 10/19/2016. FINDINGS: CTA: Thoracic aorta is normal in caliber without dissection and/or aneurysm. Note is made of a bovine aortic arch. Heart is normal in size. Pulmonary arterial tree is well opacified to the level of the subsegmental branches. The previously described multifocal pulmonary emboli are no longer identified. Exam is mildly limited secondary to respiratory motion. No new pulmonary emboli are identified. The distal subsegmental branches are not well opacified secondary to contrast bolus timing. CT CHEST: Small left pleural effusion is noted with left basilar groundglass opacities, unchanged. There is mild dependent right basilar atelectasis. No pneumothorax or right pleural effusion. Interval development of a triangular wedge-shaped ground glass opacity of the lingula, 2.1 x 1.3 cm seen on image 154 of the axial series. Additional groundglass opacities are seen within the inferior segment lingula. No large emboli were seen within this distribution on comparison. Central airways are patent. There is mild bronchial wall thickening of the lung bases. Upper abdominal structures are within normal limits. Note is made of symmetric mild bilateral gynecomastia. Right labral repair of the shoulder. Bones appear intact. IMPRESSION: 1. Mildly limited study secondary to respiratory motion. There appears to be resolution of the previously described bilateral pulmonary emboli without new or large pulmonary emboli identified. 2. Persistent small left pleural effusion with bibasilar atelectasis. 3. Interval development of focal groundglass opacities of the inferior segment lingula suspicious for infectious or inflammatory pneumonitis. Note that these consolidations are somewhat peripheral and alternatively may reflect developing pulmonary infarctions, however no large pulmonary emboli were seen within this distribution on comparison. 4. Mild bronchitis. The above report was generated using voice recognition software. It may contain grammatical, syntax or spelling errors. Electronically signed by: Cliff Denton M.D. 11/19/2016 12:18 PM Dictated Date/Time: 11/19/2016 12:08 PM
--- NOTE | 2016-11-19 12:45 | DIAGNOSTIC IMAGING REPORT ---
ABD/PELVIS IV CONTRAST ONLY HISTORY: 26 years-old Male acute left upper abdominal pain, vomiting, constipation. History of recent pulmonary embolism. COMPARISON: CT abdomen and pelvis 06/13/2015 TECHNIQUE: Multiple axial CT images of the abdomen and pelvis were obtained following the intravenous administration of 93 mL Optiray 320. A dose lowering technique was used consistent with the principals of INGRID. FINDINGS: Small left pleural effusion is again seen with dependent groundglass opacities, further discussed on comparison chest CT of same day. There is no pneumoperitoneum identified. The imaged inferior cardiac chambers are unremarkable. The liver, gallbladder, spleen, pancreas and adrenal glands are within normal limits. Bilateral kidneys, ureters, and bladder, prostate are unremarkable. The abdominal aorta is normal in both course and caliber. No bulky adenopathy. There is no bowel obstruction. There is moderate volume of formed stool throughout the colon. Several loops of colon are also fluid-filled with air-fluid level layering suggesting diarrheal state. The appendix is not definitively seen, however no secondary signs of acute appendicitis. Terminal ileum is unremarkable. Nondilated fluid-filled loops of ileum with air-fluid leveling are also seen suggesting associated enteritis. Soft tissues are unremarkable. Mild endplate changes are seen throughout the spine. Posterior disc osteophyte complex formation is seen at T12-L1 causing mild central canal narrowing. IMPRESSION: 1. No evidence of bowel obstruction or pneumoperitoneum. Multiple fluid-filled loops of colon are noted in addition to nondilated loops of ileum which demonstrate associated air-fluid leveling suggesting diarrheal state with enteritis. 2. No evidence of acute appendicitis. 3. Trace left pleural effusion with probable left basilar atelectasis. The above report was generated using voice recognition software. It may contain grammatical, syntax or spelling errors. Electronically signed by: Cliff Denton M.D. 11/19/2016 12:44 PM Dictated Date/Time: 11/19/2016 12:36 PM
[2016-11-19 13:54] LABS: POTASSIUM 4.1 mmol/L (3.5-5.1)
[2016-11-19] MEDS ORDERED: PANTOprazole SOD 40 MG TAB PO STA (15:32)
[2016-11-19 15:41] VITALS: BP 108/81; PULSE 63; O2SAT 96
[2016-11-19] MEDS ORDERED: PHENERGAN 25MG HOMEPACK PO ONE (15:45)
[2016-11-19] MEDS ORDERED: AMOXICIL/CLAVU 875MG HOME PACK PO ONE (15:45)
[2016-11-19] MEDS ORDERED: BENTYL HOME PACK 10 MG VIAL PO ONE (15:45)
[2016-11-19] MEDS ORDERED: DICY20TA35 PO (15:46)
[2016-11-19] MEDS ORDERED: OMEP40CA41 PO (15:46)
[2016-11-19] MEDS ORDERED: AMOX875T PO (18:14)
--- NOTE | 2016-11-19 18:17 | EMERGENCY ROOM VISIT NOTE ---
History Report prepared by Suellen: Wil Mcbride Under the Supervision of: Dr. Tam Ricks M.D. First contact with patient: 09:35 Chief Complaint: CONSTIPATION Stated Complaint: ABD PAIN, CONSTIPATION, UNABLE TO EAT OR DRINK Nursing Triage Summary: Pt states yesterday he was here because he hadn't had a BM in a week and was puking when he ate. Since he left he drank bottles of mag citrate and has not had a BM. Pain has increased. Left side of abdomen pain. Pt states he has been drinking sips of water. History of Present Illness The patient is a 26 year old male who presents to the Emergency Room with complaints of waxing/waning left sided abdominal pain that started a week ago. He rates his pain as a 6.5/10 in severity and describes the pain as a stabbing sensation. He states that the pain is worsened with breathing and reports that the pain is a 10/10 in severity when he breathes. The patient admits that he was here on November 05 for chest pain following his recent history of a pulmonary embolism. He reports that the doctor believed he had a pulmonary embolism due to his history of a shoulder surgery. The patient states that he was in the ED again yesterday due to his constant constipation for a week and left lower abdominal pain yesterday. He states that he was discharged and went home later yesterday. He admits that he has had problems with constipation in the past. The patient states that he drank magnesium citrate last night, but reports that it made his "stomach rumble" and denies any bowel movement. He reports that today his left lower abdominal pain moved into left upper abdominal pain, which prompted him to visit the ED. The patient also admits to nausea and vomiting whenever he eats anything. He states that he believe he saw blood in his vomit yesterday, which he describes as "chunky dark red". He is unsure because he did eat some red food. He reports that his current symptoms are similar to his symptoms when he was experiencing a blood clot. He states that he takes Xarelto, but denies taking a dose today, and Paxil. The patient also reports that he takes Klonopin, but reports he only takes it as needed, which is not often. He denies taking Nucynta. He reports that his PCP is part of [facility]. The patient admits that the last time he took an opiate was two weeks ago after reporting to the ED for his chest pain. The patient denies fevers, chills, passing gas, any problems with his eyes, ears, nose, throat, edema to his lower extremities, any medication allergies, and having problems with constipation with his medication in the past. Source of History: patient Onset: a week ago Position: abdomen (LUQ) Symptom Intensity: 6.5/10 Quality: sharp Timing: waxes/wanes Modifying Factors (Worsening): breathing Associated Symptoms: + nausea, + vomiting, No fevers, No chills Review of Systems See HPI for pertinent positives and negatives. A total of ten systems were reviewed and were otherwise negative. Past Medical & Surgical Medical Problems: (1) Depression (2) History of narcotic addiction (3) Polysubstance abuse Family History FH: anemia MOTHER Social History Smoking Status: Never Smoker Alcohol Use: occasionally Drug Use: other Marital Status: single Housing Status: lives with family Occupation Status: employed Current/Historical Medications Scheduled Amoxicillin & Pot Clavulanate (Augmentin 875-125 mg), 875 MG PO BID Omeprazole (Prilosec), 40 MG PO DAILY Paroxetine Hcl (Paroxetine Hcl), 10 MG PO QAM Rivaroxaban (Xarelto), 15 MG PO BIDM Scheduled PRN Clonazepam (Klonopin), 0.5 MG PO BID PRN for Anxiety/Agitation Dexmethylphenidate Hcl (Dexmethylphenidate Hcl), 10 MG PO BID PRN for FOR SCHOOL Dicyclomine Hcl (Bentyl), 20 MG PO Q6 PRN for Pain [Zofran Odt], 4 MG PO Q6H PRN for Nausea or Vomiting Allergies Coded Allergies: No Known Allergies (Unverified , 11/19/16) Physical Exam Vital Signs Date Time Temp Pulse Resp B/P (MAP) Pulse Ox O2 Delivery O2 Flow Rate FiO2 11/19/16 15:41 63 16 108/81 96 Room Air 11/19/16 14:01 61 11/19/16 13:41 64 4 98 11/19/16 13:31 109/75 11/19/16 13:11 66 13 100 11/19/16 13:01 114/66 11/19/16 12:41 54 9 98 11/19/16 12:31 111/66 8/27/17 12:14 59 20 115/72 96 Room Air 11/19/16 12:11 68 8 100 11/19/16 12:09 115/72 11/19/16 11:02 119/76 11/19/16 10:58 142/85 11/19/16 10:41 68 10 96 11/19/16 10:32 131/76 11/19/16 10:31 78 16 131/76 97 Room Air 11/19/16 10:19 67 11/19/16 10:11 65 7 11/19/16 09:19 36.4 90 16 122/83 99 Room Air Physical Exam GENERAL: Awake, alert, uncomfortable appearing, in no distress HENT: Normocephalic, atraumatic. Oropharynx unremarkable. EYES: Normal conjunctiva. Sclera slightly erythematous NECK: Supple. No nuchal rigidity. FROM. No JVD. RESPIRATORY: Clear to auscultation. CARDIAC: Borderline tachycardic, normal rhythm. Extremities warm and well perfused. Pulses equal. ABDOMEN: Soft, non-distended. Mild tenderness to palpation in the left and right lower quadrant. Moderate left upper quadrant tenderness to palpation. No rebound or guarding. No masses. RECTAL: Deferred. MUSCULOSKELETAL: Chest examination reveals no tenderness. The back is symmetrical on inspection without obvious abnormality. There is no CVA tenderness to palpation. No joint edema. LOWER EXTREMITIES: Calves are equal size bilaterally and non-tender. No edema. No discoloration. NEURO: Normal sensorium. No sensory or motor deficits noted. SKIN: No rash or jaundice noted. Medical Decision & Procedures ER Provider Diagnostic Interpretation: Radiology results as stated below per my review and radiologist interpretation (CHEST FOR PE) ANGIO WITH CT DOSE: 1419.03 mGycm HISTORY: 26 years-old Male presents with acute chest pain. History of pulmonary emboli. TECHNIQUE: Multiple CTA images of the chest were obtained after the intravenous administration of 93 ml Optiray 320. Coronal and sagittal MIPS were obtained from the axial data set and were submitted for review. A dose lowering technique was utilized adhering to the principles of ALARA. COMPARISON: CTA of the chest 10/19/2016. FINDINGS: CTA: Thoracic aorta is normal in caliber without dissection and/or aneurysm. Note is made of a bovine aortic arch. Heart is normal in size. Pulmonary arterial tree is well opacified to the level of the subsegmental branches. The previously described multifocal pulmonary emboli are no longer identified. Exam is mildly limited secondary to respiratory motion. No new pulmonary emboli are identified. The distal subsegmental branches are not well opacified secondary to contrast bolus timing. CT CHEST: Small left pleural effusion is noted with left basilar groundglass opacities, unchanged. There is mild dependent right basilar atelectasis. No pneumothorax or right pleural effusion. Interval development of a triangular wedge-shaped ground glass opacity of the lingula, 2.1 x 1.3 cm seen on image 154 of the axial series. Additional groundglass opacities are seen within the inferior segment lingula. No large emboli were seen within this distribution on comparison. Central airways are patent. There is mild bronchial wall thickening of the lung bases. Upper abdominal structures are within normal limits. Note is made of symmetric mild bilateral gynecomastia. Right labral repair of the shoulder. Bones appear intact. IMPRESSION: 1. Mildly limited study secondary to respiratory motion. There appears to be resolution of the previously described bilateral pulmonary emboli without new or large pulmonary emboli identified. 2. Persistent small left pleural effusion with bibasilar atelectasis. 3. Interval development of focal groundglass opacities of the inferior segment lingula suspicious for infectious or inflammatory pneumonitis. Note that these consolidations are somewhat peripheral and alternatively may reflect developing pulmonary infarctions, however no large pulmonary emboli were seen within this distribution on comparison. 4. Mild bronchitis. The above report was generated using voice recognition software. It may contain grammatical, syntax or spelling errors. Electronically signed by: Cliff Denton M.D. 11/19/2016 12:18 PM Dictated Date/Time: 11/19/2016 12:08 PM ABD/PELVIS IV CONTRAST ONLY HISTORY: 26 years-old Male acute left upper abdominal pain, vomiting, constipation. History of recent pulmonary embolism. COMPARISON: CT abdomen and pelvis 06/13/2015 TECHNIQUE: Multiple axial CT images of the abdomen and pelvis were obtained following the intravenous administration of 93 mL Optiray 320. A dose lowering technique was used consistent with the principals of INGRID. FINDINGS: Small left pleural effusion is again seen with dependent groundglass opacities, further discussed on comparison chest CT of same day. There is no pneumoperitoneum identified. The imaged inferior cardiac chambers are unremarkable. The liver, gallbladder, spleen, pancreas and adrenal glands are within normal limits. Bilateral kidneys, ureters, and bladder, prostate are unremarkable. The abdominal aorta is normal in both course and caliber. No bulky adenopathy. There is no bowel obstruction. There is moderate volume of formed stool throughout the colon. Several loops of colon are also fluid-filled with air-fluid level layering suggesting diarrheal state. The appendix is not definitively seen, however no secondary signs of acute appendicitis. Terminal ileum is unremarkable. Nondilated fluid-filled loops of ileum with air-fluid leveling are also seen suggesting associated enteritis. Soft tissues are unremarkable. Mild endplate changes are seen throughout the spine. Posterior disc osteophyte complex formation is seen at T12-L1 causing mild central canal narrowing. IMPRESSION: 1. No evidence of bowel obstruction or pneumoperitoneum. Multiple fluid-filled loops of colon are noted in addition to nondilated loops of ileum which demonstrate associated air-fluid leveling suggesting diarrheal state with enteritis. 2. No evidence of acute appendicitis. 3. Trace left pleural effusion with probable left basilar atelectasis. The above report was generated using voice recognition software. It may contain grammatical, syntax or spelling errors. Electronically signed by: Cliff Denton M.D. 11/19/2016 12:44 PM Dictated Date/Time: 11/19/2016 12:36 PM Laboratory Results 11/19/16 10:30 Red Blood Count 4.41, Mean Corpuscular Volume 85.7, Mean Corpuscular Hemoglobin 30.2, Mean Corpuscular Hemoglobin Concent 35.2, Mean Platelet Volume 9.9, Neutrophils (%) (Auto) 52.9, Lymphocytes (%) (Auto) 33.6, Monocytes (%) (Auto) 10.8, Eosinophils (%) (Auto) 2.3, Basophils (%) (Auto) 0.2, Neutrophils # (Auto ) 2.94, Lymphocytes # (Auto) 1.87, Monocytes # (Auto) 0.60, Eosinophils # (Auto ) 0.13, Basophils # (Auto) 0.01 11/19/16 10:30 11/19/16 12:58 Test 11/19/16 10:30 11/19/16 11:35 11/19/16 12:58 White Blood Count 5.56 K/uL (4.8-10.8) Red Blood Count 4.41 M/uL (4.7-6.1) Hemoglobin 13.3 g/dL (14.0-18.0) Hematocrit 37.8 % (42-52) Mean Corpuscular Volume 85.7 fL (80-100) Mean Corpuscular Hemoglobin 30.2 pg (25-34) Mean Corpuscular Hemoglobin Concent 35.2 g/dl (32-36) Platelet Count 207 K/uL (130-400) Mean Platelet Volume 9.9 fL (7.4-10.4) Neutrophils (%) (Auto) 52.9 % Lymphocytes (%) (Auto) 33.6 % Monocytes (%) (Auto) 10.8 % Eosinophils (%) (Auto) 2.3 % Basophils (%) (Auto) 0.2 % Neutrophils # (Auto) 2.94 K/uL (1.4-6.5) Lymphocytes # (Auto) 1.87 K/uL (1.2-3.4) Monocytes # (Auto) 0.60 K/uL (0.11-0.59) Eosinophils # (Auto) 0.13 K/uL (0-0.5) Basophils # (Auto) 0.01 K/uL (0-0.2) RDW Standard Deviation 40.0 fL (36.4-46.3) RDW Coefficient of Variation 12.7 % (11.5-14.5) Immature Granulocyte % (Auto) 0.2 % Immature Granulocyte # (Auto) 0.01 K/uL (0.00-0.02) Anion Gap 4.0 mmol/L (3-11) Est Creatinine Clear Calc Drug Dose 113.7 ml/min Estimated GFR () 108.3 Estimated GFR (Non- 93.5 BUN/Creatinine Ratio 7.7 (10-20) Calcium Level 8.7 mg/dl (8.5-10.1) Total Bilirubin 0.5 mg/dl (0.2-1) Alanine Aminotransferase (ALT/SGPT) 21 U/L (12-78) Alkaline Phosphatase 54 U/L (45-117) Troponin I < 0.015 ng/ml (0-0.045) Total Protein 7.1 gm/dl (6.4-8.2) Albumin 3.5 gm/dl (3.4-5.0) Lipase 78 U/L (73-393) Thyroid Stimulating Hormone (TSH) 1.240 uIu/ml (0.300-4.500) Urine Color YELLOW Urine Appearance TURBID (CLEAR) Urine pH 8.5 (4.5-7.5) Urine Specific [place] 1.018 (1.000-1.030) Urine Protein NEG (NEG) Urine Glucose (UA) NEG (NEG) Urine Ketones NEG (NEG) Urine Occult Blood NEG (NEG) Urine Nitrite NEG (NEG) Urine Bilirubin NEG (NEG) Urine Urobilinogen NEG (NEG) Urine Leukocyte Esterase NEG (NEG) Urine WBC (Auto) 1-5 /hpf (0-5) Urine RBC (Auto) 0-4 /hpf (0-4) Urine Hyaline Casts (Auto) 1-5 /lpf (0-5) Urine Epithelial Cells (Auto) 5-10 /lpf (0-5) Urine Bacteria (Auto) NEG (NEG) Urine Crystals AMORPHOUS SEDIMENT (NONE Direct Bilirubin 0.1 mg/dl (0-0.2) Aspartate Amino Transf (AST/SGOT) 19 U/L (15-37) Laboratory results reviewed by me Medications Administered Medications (Trade) Dose Ordered Sig/Saud Route Start Time Stop Time Status Last Admin Dose Admin Sodium Chloride 1,000 ml @ 999 mls/hr Q1H1M STAT IV 11/19/16 09:50 11/19/16 10:50 DC 11/19/16 10:34 999 MLS/HR Dicyclomine HCl (Bentyl Inj) 20 mg NOW ONCE IM 11/19/16 10:00 11/19/16 10:01 DC 11/19/16 10:36 20 MG Promethazine HCl 25 mg/Sodium Chloride 51 ml @ 204 mls/hr NOW STAT IV 11/19/16 09:50 11/19/16 10:04 DC 11/19/16 10:34 204 MLS/HR Promethazine HCl (Phenergan 25MG Home Pack) 1 homepack UD ONCE PO 11/19/16 15:45 11/19/16 15:46 DC 11/19/16 15:42 1 HOMEPACK Dicyclomine HCl (Dicyclomine HCl 10MG Home Pack) 1 ea UD ONCE PO 11/19/16 15:45 11/19/16 15:46 DC 11/19/16 15:42 1 EA Pantoprazole Sodium (Protonix Tab) 40 mg NOW STAT PO 11/19/16 15:32 11/19/16 15:36 DC 11/19/16 15:42 40 MG Amoxicillin/ Clavulanate Potassium (Augmentin 875MG Home Pack) 1 homepack UD ONCE PO 11/19/16 15:45 11/19/16 15:46 DC 11/19/16 15:42 1 HOMEPACK ECG Indication: abdominal pain Rate (beats per minute): 62 Rhythm: sinus with SA Findings: no acute ischemic change, no ectopy ED Course 0941: The patient was evaluated in room B03B. A complete history and physical exam was performed. 0950: Ordered Promethazine HCl 25 mg/ Sodium Chloride 51 ml @ 204 mls/hr IV, Sodium Chloride 1000 ml @ 999 mls/hr IV. 1000: Ordered Bentyl Injection 20 mg IM. 1137: I reevaluated the patient and he is stable and resting comfortably. 1310: I reevaluated the patient and updated him on his results. He still has left sided abdominal pain. 1524: The patient had hard and liquid stool from the enema. We had a long discussion about his results and treatment plan. 1532: Ordered Protonix Tab 40 mg PO. 1545: Ordered Amoxicillin/Clavulanate Potassium 1 homepack PO, Dicyclomine HCl 1 each PO, Promethazine HCl 1 homepack PO. 1548: I discussed the patients case with case management. They were able to get an appointment for the patient for a follow up tomorrow. Medical Decision Prior records/ancillary studies reviewed regarding his recent visits. Triage Nursing notes reviewed and agree them. The patient's history was concerning for constipation. Differential diagnosis: Etiologies such as functional constipation, impaction, obstruction, volvulus, metabolic abnormality, infection, neurologic, pulmonary embolism, pleurisy, cardiac sources, as well as others were entertained. Physical examination findings: As above. No peritoneal findings. The patient is not hypoxic or in any respiratory distress. ER treatment provided: Patient was hydrated with normal saline IM Bentyl IV Phenergan On reassessment the patient felt better. Soapsuds enema Diagnostics interpreted by me: ECG: Normal. No ischemia. No pericarditis The labs revealed An unremarkable CBC except for subtle anemia. Chemistry panel unremarkable. Urinalysis negative. Imaging studies: CT scans as above The patient has a moderate amount of stool noted on CT scan. There is no evidence of diverticulitis, colitis, or appendicitis. He has a small left- sided pleural effusion. There is some mild pneumonitis on the left side. There is no evidence of increasing or new pulmonary emboli. The patient was treated conservatively as above. I did discuss pain medication use with him as his main issue today is with the constipation not improved with the magnesium citrate. The patient had moderate results with the enema. I did discuss conservative management with Prilosec, Phenergan, Bentyl, Augmentin and MiraLAX. The patient was given a home pack of Bentyl, Augmentin and Phenergan. He was given a dose of Protonix here. Case management was able to make a follow-up appointment with the primary office for tomorrow morning. If the patient worsens in any way, develops bloody stools, or as any significant vomiting blood or coffee grounds he will return to the emergency department for reevaluation. Note: The Augmentin prescription was initially admitted from the patient's discharge packet but was ordered and the patient was notified. It was sent to his pharmacy. By the evaluation outlined above emergent etiologies such as obstruction, volvulus, metabolic abnormality, infection , neurologic, as well as others were deemed relatively unlikely. The patient was informed about the findings as listed above. All questions were answered and he was pleased with the treatment. Return instructions were outlined and the patient was discharged in stable condition. Outpatient prescription management: Prilosec Phenergan home pack Bentyl Augmentin Referral: The patient was referred back to their primary care physician for follow-up tomorrow for a recheck of the current condition. Medication Reconcilliation Current Medication List: was personally reviewed by me Blood Pressure Screening Patient's blood pressure: Normal blood pressure Impression Primary Impression: LUQ abdominal pain Additional Impressions: Constipation Pneumonitis History of pulmonary embolism Scribe Attestation The scribe's documentation has been prepared under my direction and personally reviewed by me in its entirety. I confirm that the note above accurately reflects all work, treatment, procedures, and medical decision making performed by me. Departure Information Dispostion Home / Self-Care (ERASED) Prescriptions Amoxicillin & Pot Clavulanate (Augmentin 875-125 mg) 1 Tab Tab 875 MG PO BID for 7 Days, #14 TAB Prov: Tam Ricks MD 11/19/16 Omeprazole (PRILOSEC) 40 Mg Cap 40 MG PO DAILY, #14 CAP Prov: Tam Ricks MD 11/19/16 Dicyclomine Hcl (BENTYL) 20 Mg Tab 20 MG PO Q6 Y for Pain, #14 TAB Prov: Tam Ricks MD 11/19/16 Referrals Edd Leon D.O. (PCP) Forms HOME CARE DOCUMENTATION FORM, IMPORTANT VISIT INFORMATION Patient Instructions My [facility] Additional Instructions Bentyl(dicyclomine) 20 mg: Take one tablet 4 times daily as needed for abdominal pain. If 20 mg does not seem to be enough you may increase to 40 mg 4 times daily after one week. If you do not have any results with this medication do not continue past 2 weeks from the start date. Discontinue this medication if you develop any rash, itching, increased abdominal pain, heartburn , increased nausea, constipation, or as needed. MiraLAX: Use one capful daily for hard stools or constipation. This is available [id number]. Follow the instructions on the bottle. Prilosec 40mg: Take one pill every morning until directed otherwise by your primary care physician. Phenergan 25mg tabs, one every six hours for nausea. Review the package insert for all your medications. This is necessary as important health information is provided for your benefit and current care. Continue current medications. Follow-up with the primary office, tomorrow at 11:[address] Riley. This was scheduled through case management during your Emergency Room visit today. Problem Qualifiers
== END 2016-11-19 16:10 | disposition home or self-care (01) ==
LOC: C.EDB 09:12
DX: R10.12 Left upper quadrant pain (principal); K59.00 Constipation, unspecified; J18.9 Pneumonia, unspecified organism; Z86.711 Personal history of pulmonary embolism; F32.9 Major depressive disorder, single episode, unspecified

== ENCOUNTER 2016-12-20 17:12 | Emergency (ER) | payer BC, OTHER ==
[~2016-12-20] VITALS: Ht 182.9 cm; Wt 86.8 kg
[~2016-12-20 17:12] MED LIST changes: -ONDA4TAB10 SL; +PARO10TA4 PO; -PXL/10 PO; +RIVA1.5T PO; -XRL15 PO; +ZOFRAN ODT PO
[2016-12-20 17:24] VITALS: TEMP 36.7; Ht 182.9 cm; Wt 86.8 kg
[2016-12-20 18:01] LABS: BASO % 0.1 %; BASO ABS # 0.01 K/uL (0-0.2); COMPLETE YES; EOS % 0.3 %; HEMATOCRIT 40.8 % (42-52); IG% 0.1 %; MEAN CELL VOLUME 85.4 fL (80-100); MEAN CORPUSCULAR HEMOGLOBIN 28.7 pg (25-34); MEAN CORPUSCULAR HGB CONC 33.6 g/dl (32-36); MEAN PLATELET VOLUME 9.5 fL (7.4-10.4); MONO % 6.8 %; NEUT % 60.7 %; PLATELET COUNT 260 K/uL (130-400); RED BLOOD COUNT 4.78 M/uL (4.7-6.1); WHITE BLOOD COUNT 6.87 K/uL (4.8-10.8)
[2016-12-20 18:04] LABS: INR 1.1 (0.9-1.1)
[2016-12-20 18:17] LABS: ALT/SGPT 15 U/L (12-78); BLOOD UREA NITROGEN 7 mg/dl (7-18); BUN/CREATININE RATIO 5.1 (10-20); CALCIUM 9.3 mg/dl (8.5-10.1); CARBON DIOXIDE 23 mmol/L (21-32); CHLORIDE 103 mmol/L (98-107); GLUCOSE 185 mg/dl (70-99); POTASSIUM 3.4 mmol/L (3.5-5.1); SODIUM 138 mmol/L (136-145)
[2016-12-20 18:22] LABS: ALKALINE PHOSPHATASE 58 U/L (45-117); AST/SGOT 16 U/L (15-37)
[2016-12-20] MEDS ORDERED: SODIUM CHLORIDE 0.9% 1000ML 1,000 ML IV STA (18:26)
[2016-12-20 18:32] LABS: ACETAMINOPHEN < 2 ug/ml (10-30)
--- NOTE | 2016-12-20 19:03 | DIAGNOSTIC IMAGING REPORT ---
HEAD WITHOUT CONTRAST (CT) CT DOSE: 1003.45 mGycm HISTORY: Mental status change eval for bleed TECHNIQUE: Multiaxial CT images of the head were performed without the use of intravenous contrast. A dose lowering technique was utilized adhering to the principles of ALARA. Comparison: 10/03/2015 Findings: Moderate sphenoid sinusitis. The calvarium and skull base are intact. The ventricles and sulci are within normal limits. There is no mass, hematoma, midline shift, or acute infarct. Impression: No acute intracranial abnormality. Moderate sphenoid sinusitis The above report was generated using voice recognition software. It may contain grammatical, syntax or spelling errors. Electronically signed by: Rudy Parker M.D. 12/20/2016 7:02 PM Dictated Date/Time: 12/20/2016 7:01 PM
[2016-12-20] MEDS ORDERED: AMOX875T PO (19:34)
[2016-12-20] MEDS ORDERED: AMOXICILLIN/CLAVULANATE TAB 875 MG TAB PO ONE (19:45)
[2016-12-20] MEDS ORDERED: ACETAMINOPHEN 325 MG TAB PO STA (19:56)
[2016-12-20] MEDS ORDERED: ALUMINUM/MAGNESIUM SUSP 30 ML UDC PO STA (20:13)
[2016-12-20] MEDS ORDERED: LIDOCAINE HCL 2% VISC SOLN 20 ML UDC PO STA (20:13)
[2016-12-20 22:23] VITALS: BP 122/73; PULSE 87; O2SAT 96
--- NOTE | 2016-12-20 23:49 | EMERGENCY ROOM VISIT NOTE ---
History Report prepared by Suellen: Tiffanie Rice Under the Supervision of: Dr. Donnell Blanchard M.D. First contact with patient: 17:14 Chief Complaint: OVERDOSE (INTENTIONAL) Stated Complaint: OVERDOSE History of Present Illness The patient is a 26 year old male who presents to the Emergency Room with complaints of a heroin overdose that occurred prior to arrival. The patient states that he is a previous heroin addict, stating that he heavily used heroin two years ago. He states that today he was snorting heroin and the last thing he remembers is getting in the shower. The patient states that he passed out and notes that he thinks he hit his head on the floor. He states that he was found by his parents. The patient reports a headache, but denies any neck pain or extremity pain. He states that he believed he overdosed because the heroin was stronger than what he had used in the past. The patient denies any intentional overdose and denies any suicidal ideation. He denies any other drug use or alcohol use today. The patient denies any recent illness or fever. Per EMS the patient was given four milligrams of Narcan prior to arrival. Source of History: patient Onset: prior to arrival Position: other (global) Quality: other (heroin overdose) Modifying Factors (Relieving): other (Narcan) Associated Symptoms: + headache, No fevers, No neck pain Review of Systems See HPI for pertinent positives & negatives. A total of 10 systems reviewed and were otherwise negative. Past Medical & Surgical Medical Problems: (1) Depression (2) History of narcotic addiction (3) Polysubstance abuse Family History FH: anemia MOTHER Social History Smoking Status: Never Smoker Alcohol Use: occasionally Drug Use: other Marital Status: single Housing Status: lives with family Occupation Status: employed Current/Historical Medications Scheduled Amoxicillin & Pot Clavulanate (Augmentin 875-125 mg), 875 MG PO BID Allergies Coded Allergies: No Known Allergies (Unverified , 12/20/16) Physical Exam Vital Signs Date Time Temp Pulse Resp B/P (MAP) Pulse Ox O2 Delivery O2 Flow Rate FiO2 12/20/16 22:23 87 20 122/73 96 12/20/16 22:08 77 12/20/16 21:30 72 18 102/48 96 Room Air 12/20/16 20:09 89 18 118/67 96 Room Air 12/20/16 18:33 98 18 117/77 96 Room Air 12/20/16 17:24 36.7 94 18 124/94 99 Room Air 12/20/16 17:20 98 Physical Exam Constitutional: Vital signs reviewed. Eyes: Pupils are equal round reactive to light. Both pupils are dilated. Conjunctiva are noninjected. ENT: Large bruise to the left forehead. Pharynx is clear without erythema or exudate. Mucous membranes are moist. Neck supple without meningeal signs. No midline tenderness to the cervical spine. Respiratory: Clear to auscultation bilaterally. Breath sounds are equal bilaterally. Cardiovascular: Regular rate and rhythm. No rubs or gallops. GI: Soft, nondistended and nontender. Bowel sounds are present. Musculoskeletal: No peripheral edema. Integumentary: No cyanosis. Neurological: The patient is awake and alert. Cranial nerves II-XII are intact. Motor is 5 out of 5 all extremities. Sensation is intact to light touch all extremities. Normal speech. Psychiatric: Flat affect. Medical Decision & Procedures ER Provider Diagnostic Interpretation: CT results as stated below per my review and radiologist interpretation. HEAD WITHOUT CONTRAST (CT) CT DOSE: 1003.45 mGycm HISTORY: Mental status change eval for bleed TECHNIQUE: Multiaxial CT images of the head were performed without the use of intravenous contrast. A dose lowering technique was utilized adhering to the principles of ALARA. Comparison: 10/03/2015 Findings: Moderate sphenoid sinusitis. The calvarium and skull base are intact. The ventricles and sulci are within normal limits. There is no mass, hematoma, midline shift, or acute infarct. Impression: No acute intracranial abnormality. Moderate sphenoid sinusitis The above report was generated using voice recognition software. It may contain grammatical, syntax or spelling errors. Electronically signed by: Rudy Parker M.D. 12/20/2016 7:02 PM Dictated Date/Time: 12/20/2016 7:01 PM The status of this report is Signed. Draft = Not yet reviewed or approved by Radiologist. Signed = Reviewed and approved by Radiologist. Laboratory Results 12/20/16 17:40 Red Blood Count 4.78, Mean Corpuscular Volume 85.4, Mean Corpuscular Hemoglobin 28.7, Mean Corpuscular Hemoglobin Concent 33.6, Mean Platelet Volume 9.5, Neutrophils (%) (Auto) 60.7, Lymphocytes (%) (Auto) 32.0, Monocytes (%) (Auto) 6.8, Eosinophils (%) (Auto) 0.3, Basophils (%) (Auto) 0.1, Neutrophils # (Auto) 4.16, Lymphocytes # (Auto) 2.20, Monocytes # (Auto) 0.47, Eosinophils # (Auto) 0.02, Basophils # (Auto) 0.01 12/20/16 17:40 Test 12/20/16 17:40 White Blood Count 6.87 K/uL (4.8-10.8) Red Blood Count 4.78 M/uL (4.7-6.1) Hemoglobin 13.7 g/dL (14.0-18.0) Hematocrit 40.8 % (42-52) Mean Corpuscular Volume 85.4 fL (80-100) Mean Corpuscular Hemoglobin 28.7 pg (25-34) Mean Corpuscular Hemoglobin Concent 33.6 g/dl (32-36) Platelet Count 260 K/uL (130-400) Mean Platelet Volume 9.5 fL (7.4-10.4) Neutrophils (%) (Auto) 60.7 % Lymphocytes (%) (Auto) 32.0 % Monocytes (%) (Auto) 6.8 % Eosinophils (%) (Auto) 0.3 % Basophils (%) (Auto) 0.1 % Neutrophils # (Auto) 4.16 K/uL (1.4-6.5) Lymphocytes # (Auto) 2.20 K/uL (1.2-3.4) Monocytes # (Auto) 0.47 K/uL (0.11-0.59) Eosinophils # (Auto) 0.02 K/uL (0-0.5) Basophils # (Auto) 0.01 K/uL (0-0.2) RDW Standard Deviation 38.6 fL (36.4-46.3) RDW Coefficient of Variation 12.4 % (11.5-14.5) Immature Granulocyte % (Auto) 0.1 % Immature Granulocyte # (Auto) 0.01 K/uL (0.00-0.02) Prothrombin Time 12.0 SECONDS (9.0-12.0) Prothromb Time International Ratio 1.1 (0.9-1.1) Activated Partial Thromboplast Time 24.7 SECONDS (21.0-31.0) Partial Thromboplastin Ratio 1.0 Anion Gap 12.0 mmol/L (3-11) Est Creatinine Clear Calc Drug Dose 89.3 ml/min Estimated GFR () 80.9 Estimated GFR (Non- 69.8 BUN/Creatinine Ratio 5.1 (10-20) Calcium Level 9.3 mg/dl (8.5-10.1) Total Bilirubin 0.4 mg/dl (0.2-1) Direct Bilirubin < 0.1 mg/dl (0-0.2) Aspartate Amino Transf (AST/SGOT) 16 U/L (15-37) Alanine Aminotransferase (ALT/SGPT) 15 U/L (12-78) Alkaline Phosphatase 58 U/L (45-117) Troponin I < 0.015 ng/ml (0-0.045) Total Protein 8.0 gm/dl (6.4-8.2) Albumin 4.1 gm/dl (3.4-5.0) Salicylates Level < 1.7 mg/dl (2.8-20) Acetaminophen Level < 2 ug/ml (10-30) Laboratory results as reviewed by me. Medications Administered Medications (Trade) Dose Ordered Sig/Saud Route Start Time Stop Time Status Last Admin Dose Admin Sodium Chloride 1,000 ml @ 999 mls/hr Q1H1M STAT IV 12/20/16 18:26 12/20/16 19:26 DC 12/20/16 18:33 999 MLS/HR Amoxicillin/ Clavulanate Potassium (Augmentin Tab) 875 mg ONE ONCE PO 12/20/16 19:45 12/20/16 19:46 DC 12/20/16 20:05 875 MG Acetaminophen (Tylenol Tab) 650 mg NOW STAT PO 12/20/16 19:56 12/20/16 19:57 DC 12/20/16 20:06 650 MG Lidocaine HCl (Viscous Lidocaine 2% Soln) 10 ml NOW STAT PO 12/20/16 20:13 12/20/16 20:14 DC 12/20/16 20:35 10 ML Al Hydroxide/Mg Hydroxide (Maalox Susp) 30 ml NOW STAT PO 12/20/16 20:13 12/20/16 20:14 DC 12/20/16 20:36 30 ML ECG Rate (beats per minute): 92 Rhythm: normal sinus Findings: nonspecific-ST abn (precordial leads), prolonged QT, no ectopy Comparison ECG Date: 11/19/16 Change: When compared to EKG done on 11/18/16, prolonged QT is new. ED Course 1714: The patient was evaluated in room A9B. A complete history and physical exam was performed. 1811: I reevaluated the patient and he is awake and alert. The patients parents are in the room and his father said that he found him. The patient states that the patient has Xarelto, but has not been taking it because he is irresponsible. 1825: Ordered Sodium Chloride 1000 ml @ 999 mls/hr IV 1930: I had a long discussion with the patient about his test results. He does note that he has had sinus symptoms so he will be placed on antibiotics. I recommended that he holds off 2 days on his Xarelto due to his head injury. He states that he has only been taking his Xarelto every other day. I recommended follow up with his PCP and resumption of his Xarelto. 1944: Ordered Augmentin Tab 875 mg PO. 1955: Ordered Tylenol Tab 650 mg PO. 2012: Ordered Maalox Susp 30 ml PO, Lidocaine HCl 10 ml PO. 2209: I reevaluated the patient and he is awake and alert. He states that his headache is much better at this time. He and his family are going to contact drug rehabilitation facilities in the morning. The patient is ready for discharge. Medical Decision this is a 26-year-old male who presents after a heroin overdose. I did perform a limited focused review of portions of the patient's old chart on the electronic medical record. The patient was here this December 20 for abdominal pain, he had a CT angiogram of the chest which showed no evidence of pulmonary embolism. I did evaluate the patient as noted above. Patient is presenting after an accidental heroin overdose. He was using it recreationally. He has a prior history is but states he has not used it in 2 years. He did snort it today and went to the bathroom to take a shower. His father then found him on the ground. He does have a bruise to the head and presumably passed out. He was given Narcan intranasally by EMS after which he woke up. On arrival to the emergency department the patient is awake and alert. He does complain of a headache. IV access was established. The patient was placed on a continuous secured entrance monitor. I did order and personally review the patient's 12-lead EKG as described above. I did order and review the patient's blood work as noted in the electronic medical record. I did order a CT of the head. I did review the images myself as well as the radiology report as described above. There is no evidence of intracranial hemorrhage. The patient was given IV fluids with normal saline. He was also given Tylenol for his headache. I did discuss the case with the pharmacist who also spoke to the cleat blanker at [employer]. They recommended a four-hour observation period. I did keep the patient here in the emergency department for 4 hours. He remained awake and alert. At the end of the forearm. He stated that his headache was much better. I did discuss the test results with him and his parents. The patient has a history of bilateral pulmonary emboli and has been intermittently taking Xarelto. He states he has been taking it less than every other day. He was seen here a month ago and had a CT of his chest which showed no evidence of pulmonary emboli with resolution of his prior emboli. Because of his recent head injury I did feel he should not restart his Xarelto right away. I recommended he hold off for 48 hours and has primary physician recheck in within 48 hours to make sure he is asymptomatic and then he can resume his Xarelto at the appropriate dosage. He previously had a loading period. But because of his noncompliance he may require another loading period. His CT scan does show some sphenoid sinusitis. He does state that he has been having sinus symptoms. He was given Augmentin and discharged home with a prescription for Augmentin. He will seek drug treatment tomorrow morning. He was discharged with his parents in good condition. Head Trauma GCS Score: 15 Medication Reconcilliation Current Medication List: was personally reviewed by me Blood Pressure Screening Patient's blood pressure: Elevated blood pressure Blood pressure disposition: Elevated BP felt to be situational Impression Primary Impression: Heroin overdose Additional Impressions: Closed head injury Acute sinusitis Scribe Attestation The scribe's documentation has been prepared under my direct and personally reviewed by me in its entirety. I confirm that the note above accurately reflects all work, treatment, procedures, and medical decision making performed by me. Departure Information Dispostion Home / Self-Care Prescriptions Amoxicillin & Pot Clavulanate (Augmentin 875-125 mg) 1 Tab Tab 875 MG PO BID for 10 Days, #20 TAB Prov: Donnell Blanchard M.D. 12/20/16 Referrals Edd Leon DCarlozOCarloz (PCP) Forms HOME CARE DOCUMENTATION FORM, IMPORTANT VISIT INFORMATION, WORK / SCHOOL INSTRUCTIONS Patient Instructions ED Head Injury Closed, ED Overdose Opiate, ED Sinusitis Abx Tx, [facility] Additional Instructions You have been examined and treated today on an emergency basis only. This is not a substitute for, or an effort to provide, complete comprehensive medical care. It is impossible to recognize and treat all injuries or illnesses in a single emergency department visit. It is therefore important that you follow up closely with your physician. Call as soon as possible for an appointment. Return for worsening symptoms or if you develop fever, vomiting, numbness or weakness on one side of your body, difficulties with your speech or walking, or any other concerning symptoms. Problem Qualifiers Primary Impression: Heroin overdose Encounter type: initial encounter Injury intent: accidental or unintentional Qualified Codes: T40.1X1A - Poisoning by heroin, accidental ( unintentional), initial encounter Additional Impressions: Closed head injury Encounter type: initial encounter Qualified Codes: S09.90XA - Unspecified injury of head, initial encounter Acute sinusitis Sinusitis location: sphenoidal Recurrence: not specified as recurrent Qualified Codes: J01.30 - Acute sphenoidal sinusitis, unspecified
== END 2016-12-20 22:25 | disposition home or self-care (01) ==
LOC: EDBD 17:12 → C.EDA 17:15
DX: T40.1X1A Poisoning by heroin, accidental (unintentional), initial encounter (principal); X58.XXXA Exposure to other specified factors, initial encounter; S06.9X9A Unspecified intracranial injury with loss of consciousness of unspecified duration, initial encounter; W19.XXXA Unspecified fall, initial encounter; J01.30 Acute sphenoidal sinusitis, unspecified; F32.9 Major depressive disorder, single episode, unspecified

== ENCOUNTER 2016-12-23 12:23 | Emergency (ER) | payer BC ==
[~2016-12-23] VITALS: Ht 182.9 cm; Wt 82.9 kg
[~2016-12-23 12:23] MED LIST changes: +AMOX875T PO
[2016-12-23 12:32] VITALS: TEMP 36.8; Ht 182.9 cm; Wt 82.9 kg
[2016-12-23] MEDS ORDERED: PARO1TAB27 PO (12:42)
[2016-12-23] MEDS ORDERED: CLON0.5T3 PO (12:42)
--- NOTE | 2016-12-23 13:10 | DIAGNOSTIC IMAGING REPORT ---
CHEST ONE VIEW PORTABLE CLINICAL HISTORY: 26 years-old Male presenting with fever. TECHNIQUE: Portable upright AP view of the chest was obtained. COMPARISON: 11/18/2016. FINDINGS: Cardiomediastinal silhouette normal. Lungs and pleural spaces clear. 2 screw fixation of the right osseous glenoid. Upper abdomen normal. IMPRESSION: 1. No acute cardiopulmonary disease. Electronically signed by: Catrachito García M.D. 12/23/2016 1:09 PM Dictated Date/Time: 12/23/2016 1:08 PM
[2016-12-23] MEDS ORDERED: SODIUM CHLORIDE 0.9% 1000ML 1,000 ML IV ONE ×2 (13:15→15:00)
[2016-12-23 13:33] LABS: BASO % 0.1 %; BASO ABS # 0.01 K/uL (0-0.2); COMPLETE YES; HEMATOCRIT 40.8 % (42-52); IG% 0.1 %; LYMPH ABS # 1.58 K/uL (1.2-3.4); MEAN CORPUSCULAR HEMOGLOBIN 29.4 pg (25-34); MEAN PLATELET VOLUME 9.7 fL (7.4-10.4); MONO % 9.5 %; NEUT % 72.3 %; PLATELET COUNT 298 K/uL (130-400); RED BLOOD COUNT 4.86 M/uL (4.7-6.1)
--- NOTE | 2016-12-23 13:41 | EMERGENCY ROOM VISIT NOTE ---
History First contact with patient: 12:51 Chief Complaint: NAUSEA Stated Complaint: NAUSEA, DEHYDRATION, DIARRHEA, RESTLESS Nursing Triage Summary: Patient c/o of fever, nausea, vomiting. diarrhea, unable to keep anything down for 48 hrs. History of Present Illness The patient is a 26 year old male who presents to the Emergency Room with complaints of nausea and diarrhea which started yesterday after receiving a Vivitol shot. The patient was seen here for a heroin overdose and received narcan. The patient states that was the first time he had used heroin in a long period of time. The patient then received the Vivitol yesterday and soon after started to develop nausea and vomiting and diarrhea. He denies any abdominal pain but feels "like I have restless legs". He denies any fever. No recent vacations, camping. No sick contacts. Review of Systems A 10 point review of systems completed and negative aside from above Past Medical/Surgical History Medical Problems: (1) Depression (2) History of narcotic addiction (3) Polysubstance abuse Family History FH: anemia MOTHER Social History Smoking Status: Never Smoker Alcohol Use: occasionally Drug Use: heroin, other Marital Status: single Housing Status: lives with family Occupation Status: employed Current/Historical Medications Scheduled Amoxicillin & Pot Clavulanate (Augmentin 875-125 mg), 875 MG PO BID Clonazepam (Klonopin), 0.5 MG PO DAILY Ondasetron Odt (Zofran Odt), 4 MG SL Q6H Paroxetine (Paxil), 20 MG PO DAILY Physical Exam Vital Signs Date Time Temp Pulse Resp B/P (MAP) Pulse Ox O2 Delivery O2 Flow Rate FiO2 12/23/16 14:52 58 16 136/67 97 Room Air 12/23/16 14:27 57 15 122/60 98 Room Air 12/23/16 13:24 71 12/23/16 12:32 36.8 84 18 96 Room Air Physical Exam General: ambulatory, not in acute distress Skin: no rashes noted, no suspicious lesions, no areas of inflammations/ lacerations/ erythema noted CVS: S1/ S2 noted, RRR, no rubs/ murmurs noted, no cyanosis RVS: Clear throughout bilaterally, not in acute respiratory distress, no wheezing/ rales/ crackles noted ENT:no erythema/ injection/ ulcerations noted in the pharynx, no lymphadenopathy Neck:inspection WNL, full ROM of neck ABD: BSx4, no pain/ tenderness on palpation, no organomegaly, negative murphys, psoas, Rovsing, CVA tenderness MSK: inspection of all limbs WNL, motor and sensation intact in all limbs, no swelling/ pain on palpation of joints Lymph: No lymphadenopathy palpable Medical Decision & Procedures ER Provider Diagnostic Interpretation: CHEST ONE VIEW PORTABLE CLINICAL HISTORY: 26 years-old Male presenting with fever. TECHNIQUE: Portable upright AP view of the chest was obtained. COMPARISON: 11/18/2016. FINDINGS: Cardiomediastinal silhouette normal. Lungs and pleural spaces clear. 2 screw fixation of the right osseous glenoid. Upper abdomen normal. IMPRESSION: 1. No acute cardiopulmonary disease. Laboratory Results 12/23/16 13:20 Red Blood Count 4.86, Mean Corpuscular Volume 84.0, Mean Corpuscular Hemoglobin 29.4, Mean Corpuscular Hemoglobin Concent 35.0, Mean Platelet Volume 9.7, Neutrophils (%) (Auto) 72.3, Lymphocytes (%) (Auto) 18.0, Monocytes (%) (Auto) 9.5, Eosinophils (%) (Auto) 0.0, Basophils (%) (Auto) 0.1, Neutrophils # (Auto) 6.36, Lymphocytes # (Auto) 1.58, Monocytes # (Auto) 0.84, Eosinophils # (Auto) 0.00, Basophils # (Auto) 0.01 12/23/16 13:20 Test 12/23/16 13:20 12/23/16 13:25 12/23/16 14:25 White Blood Count 8.80 K/uL (4.8-10.8) Red Blood Count 4.86 M/uL (4.7-6.1) Hemoglobin 14.3 g/dL (14.0-18.0) Hematocrit 40.8 % (42-52) Mean Corpuscular Volume 84.0 fL (80-100) Mean Corpuscular Hemoglobin 29.4 pg (25-34) Mean Corpuscular Hemoglobin Concent 35.0 g/dl (32-36) Platelet Count 298 K/uL (130-400) Mean Platelet Volume 9.7 fL (7.4-10.4) Neutrophils (%) (Auto) 72.3 % Lymphocytes (%) (Auto) 18.0 % Monocytes (%) (Auto) 9.5 % Eosinophils (%) (Auto) 0.0 % Basophils (%) (Auto) 0.1 % Neutrophils # (Auto) 6.36 K/uL (1.4-6.5) Lymphocytes # (Auto) 1.58 K/uL (1.2-3.4) Monocytes # (Auto) 0.84 K/uL (0.11-0.59) Eosinophils # (Auto) 0.00 K/uL (0-0.5) Basophils # (Auto) 0.01 K/uL (0-0.2) RDW Standard Deviation 38.3 fL (36.4-46.3) RDW Coefficient of Variation 12.6 % (11.5-14.5) Immature Granulocyte % (Auto) 0.1 % Immature Granulocyte # (Auto) 0.01 K/uL (0.00-0.02) Prothrombin Time 12.7 SECONDS (9.0-12.0) Prothromb Time International Ratio 1.2 (0.9-1.1) Activated Partial Thromboplast Time 26.0 SECONDS (21.0-31.0) Partial Thromboplastin Ratio 1.0 Anion Gap 10.0 mmol/L (3-11) Est Creatinine Clear Calc Drug Dose 113.7 ml/min Estimated GFR () 108.3 Estimated GFR (Non- 93.5 BUN/Creatinine Ratio 11.0 (10-20) Calcium Level 10.2 mg/dl (8.5-10.1) Total Bilirubin 0.5 mg/dl (0.2-1) Aspartate Amino Transf (AST/SGOT) 11 U/L (15-37) Alanine Aminotransferase (ALT/SGPT) 15 U/L (12-78) Alkaline Phosphatase 62 U/L (45-117) Total Protein 8.4 gm/dl (6.4-8.2) Albumin 4.5 gm/dl (3.4-5.0) Globulin 3.9 gm/dl (2.5-4.0) Albumin/Globulin Ratio 1.2 (0.9-2) Lipase 239 U/L (73-393) Influenza Type A (RT-PCR) Neg for Influ A (NEG) Influenza Type B (RT-PCR) Neg for Influ B (NEG) Urine Color DK YELLOW Urine Appearance CLOUDY (CLEAR) Urine pH 5.5 (4.5-7.5) Urine Specific [place] 1.035 (1.000-1.030) Urine Protein 1+ (NEG) Urine Glucose (UA) NEG (NEG) Urine Ketones 4+ (NEG) Urine Occult Blood NEG (NEG) Urine Nitrite NEG (NEG) Urine Bilirubin NEG (NEG) Urine Urobilinogen NEG (NEG) Urine Leukocyte Esterase NEG (NEG) Urine WBC (Auto) 1-5 /hpf (0-5) Urine RBC (Auto) 0-4 /hpf (0-4) Urine Hyaline Casts (Auto) 5-10 /lpf (0-5) Urine Epithelial Cells (Auto) >30 /lpf (0-5) Urine Bacteria (Auto) NEG (NEG) Medications Administered Medications (Trade) Dose Ordered Sig/Saud Route Start Time Stop Time Status Last Admin Dose Admin Sodium Chloride 1,000 ml @ 999 mls/hr Q1H1M ONCE IV 12/23/16 13:15 12/23/16 14:15 DC 12/23/16 13:24 999 MLS/HR Ondansetron HCl (Zofran Inj) 4 mg NOW STAT IV 12/23/16 13:46 12/23/16 13:47 DC 12/23/16 14:32 4 MG Sodium Chloride 1,000 ml @ 999 mls/hr Q1H1M ONCE IV 12/23/16 15:00 12/23/16 16:00 12/23/16 14:57 999 MLS/HR Ondansetron HCl (Zofran Inj) 4 mg NOW STAT IV 12/23/16 14:52 12/23/16 14:53 DC 12/23/16 15:00 4 MG Calcium Carbonate (Tums Chew Tab) 1,500 mg NOW PRN PO 12/23/16 15:00 01/22/17 14:59 12/23/16 15:09 1,500 MG Medical Decision Differential diagnosis: Etiologies such as appendicitis, diverticulitis, withdrawal from drugs, biliary pathology, UTI, pancreatitis, obstruction, mesenteric ischemia, aortic pathology , infections, inflammatory bowel disease, renal colic, as well as others were entertained. The patient was assessed for acute onset nausea and diarrhea. CBC did not reveal any leukocytosis or anemia. CMP and lipase was unremarkable and no acute process noted. Patient's urine had +4 ketones which was reflective of dehydration. 2L of NSS was administered as well as 8 mg of Zofran and the patient had significant improvement of his symptoms. Based on normal labs and a non acute abdomen the patient is most likely suffering from acute gastroenteritis. It is unlikely patient is suffering from withdrawal as the patient had one relapse and no heroin use for months prior to this event. Patient was discharged home with a zofran rx and recommended close follow up with PCP Blood Pressure Screening Patient's blood pressure: Normal blood pressure Impression Primary Impression: Gastroenteritis Additional Impression: Dehydration Departure Information Dispostion Home / Self-Care Condition GOOD Prescriptions Ondasetron Odt (ZOFRAN ODT) 4 Mg Tab 4 MG SL Q6H for Nausea, #30 TAB Prov: Keren Norman MD 12/23/16 Referrals Edd Leon, D.OCarloz (PCP) Patient Instructions [facility] Problem Qualifiers
[2016-12-23 13:44] LABS: INR 1.2 (0.9-1.1); PROTHROMBIN TIME (PATIENT) 12.7 SECONDS (9.0-12.0)
[2016-12-23] MEDS ORDERED: ONDANSETRON INJ 2 MG/ML 2 ML VIAL IV STA ×2 (13:46→14:52)
[2016-12-23 13:50] LABS: CALCIUM 10.2 mg/dl (8.5-10.1); CREATININE 1.1 mg/dl (0.60-1.40); POTASSIUM 3.6 mmol/L (3.5-5.1)
[2016-12-23 13:53] LABS: ALB/GLOB RATIO 1.2 (0.9-2)
[2016-12-23 14:45] LABS: URINE APPEARANCE CLOUDY (CLEAR); URINE COLOR DK YELLOW; URINE EPITHELIAL CELL AUTO >30 /lpf (0-5); URINE NITRITE NEG (NEG); URINE PH 5.5 (4.5-7.5); URINE SPECIFIC GRAVITY 1.035 (1.000-1.030); UROBILINOGEN NEG (NEG); ZZUR CULT IF INDIC CLEAN CATCH NO
[2016-12-23 14:50] LABS: MANUAL MICROSCOPIC REQUIRED? NO; REVIEW REQ? NO; URINE BILIRUBIN NEG (NEG)
[2016-12-23] MEDS ORDERED: CALCIUM CARBONATE 500 MG CHEWABLE PO PRN (15:00)
[2016-12-23 15:01] LABS: INFLUENZA A PCR Neg for Influ A (NEG); INFLUENZA B PCR Neg for Influ B (NEG)
[2016-12-23] MEDS ORDERED: ONDA4TAB10 SL (15:34)
[2016-12-23 16:03] VITALS: BP 136/67; PULSE 54; O2SAT 98
--- NOTE | 2016-12-23 19:21 | EMERGENCY ROOM VISIT NOTE ---
History Report prepared by Scribe: Kelli Redman Under the Supervision of: Dr. Lopez Castillo D.O. First contact with patient: 12:51 Chief Complaint: NAUSEA Stated Complaint: NAUSEA, DEHYDRATION, DIARRHEA, RESTLESS Nursing Triage Summary: Patient c/o of fever, nausea, vomiting. diarrhea, unable to keep anything down for 48 hrs. History of Present Illness The patient is a 26 year old male who presents to the Emergency Room with complaints of persistent diarrhea for the past 2 days. He has been unable to keep anything down for 48 hours. He states he is nauseous and has been vomiting every 30 minutes. He also complains of lightheadedness and reports he fell over and hit his head last night. He denies any LOC or change in vision. He was treated for a heroin overdose this past Sunday, approximately 3 days ago, here in the ED. He states it was the first time he had used in approximately 2 years, which he thinks precipitated the overdose. The patient also complains of some abdominal pain. He still has both his gallbladder and appendix. Pt denies headache, change in vision, fevers, chest pain, shortness of breath, pain with urination, and melena. 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 A total of 10 systems reviewed and were otherwise negative. Past Medical & Surgical Medical Problems: (1) Depression (2) History of narcotic addiction (3) Polysubstance abuse Family History FH: anemia MOTHER Social History Smoking Status: Never Smoker Alcohol Use: occasionally Drug Use: other Marital Status: single Housing Status: lives with family Occupation Status: employed Current/Historical Medications Scheduled Amoxicillin & Pot Clavulanate (Augmentin 875-125 mg), 875 MG PO BID Clonazepam (Klonopin), 0.5 MG PO DAILY Ondasetron Odt (Zofran Odt), 4 MG SL Q6H Paroxetine (Paxil), 20 MG PO DAILY Allergies Coded Allergies: No Known Allergies (Unverified , 12/23/16) Physical Exam Vital Signs Date Time Temp Pulse Resp B/P (MAP) Pulse Ox O2 Delivery O2 Flow Rate FiO2 12/23/16 16:03 54 20 136/67 98 12/23/16 14:52 58 16 136/67 97 Room Air 12/23/16 14:27 57 15 122/60 98 Room Air 12/23/16 13:24 71 12/23/16 12:32 36.8 84 18 96 Room Air Physical Exam GENERAL: Patient is alert, well appearing, well nourished, no distress, non- toxic HEAD: normal cephalic, atraumatic EYE EXAM: normal conjunctiva, PERRL and EOM's grossly intact OROPHARYNX: no exudate, no erythema, lips, buccal mucosa, and tongue normal and mucous membranes are moist EARS: TMs clear b/l NECK: supple, no nuchal rigidity, no adenopathy, non-tender CHEST: stable to compression anteriorly and posteriorly LUNGS: clear to auscultation. Normal chest wall mechanics HEART: no murmurs, S1 normal and S2 normal ABDOMEN: abdomen soft, non-tender, normo-active bowel sounds, no masses, no rebound or guarding. PELVIS: stable to compression anteriorly and posteriorly BACK: Back is symmetrical on inspection and there is no deformity, no midline tenderness, no CVA tenderness. UPPER EXTREMITIES: full active and passive range of motion of all joints without tenderness to palpation LOWER EXTREMITIES: full active and passive range of motion of all joints without tenderness to palpation NEURO EXAM: Normal sensorium, cranial nerves II-XII grossly intact, normal speech, no gross weakness of arms, no gross weakness of legs. GCS: 15. Medical Decision & Procedures ER Provider Diagnostic Interpretation: Radiology results as stated below per my review and the radiologist's interpretation: CHEST ONE VIEW PORTABLE CLINICAL HISTORY: 26 years-old Male presenting with fever. TECHNIQUE: Portable upright AP view of the chest was obtained. COMPARISON: 11/18/2016. FINDINGS: Cardiomediastinal silhouette normal. Lungs and pleural spaces clear. 2 screw fixation of the right osseous glenoid. Upper abdomen normal. IMPRESSION: 1. No acute cardiopulmonary disease. Electronically signed by: Catrachito García M.D. 12/23/2016 1:09 PM Laboratory Results 12/23/16 13:20 Red Blood Count 4.86, Mean Corpuscular Volume 84.0, Mean Corpuscular Hemoglobin 29.4, Mean Corpuscular Hemoglobin Concent 35.0, Mean Platelet Volume 9.7, Neutrophils (%) (Auto) 72.3, Lymphocytes (%) (Auto) 18.0, Monocytes (%) (Auto) 9.5, Eosinophils (%) (Auto) 0.0, Basophils (%) (Auto) 0.1, Neutrophils # (Auto) 6.36, Lymphocytes # (Auto) 1.58, Monocytes # (Auto) 0.84, Eosinophils # (Auto) 0.00, Basophils # (Auto) 0.01 12/23/16 13:20 Test 12/23/16 13:20 12/23/16 13:25 12/23/16 14:25 White Blood Count 8.80 K/uL (4.8-10.8) Red Blood Count 4.86 M/uL (4.7-6.1) Hemoglobin 14.3 g/dL (14.0-18.0) Hematocrit 40.8 % (42-52) Mean Corpuscular Volume 84.0 fL (80-100) Mean Corpuscular Hemoglobin 29.4 pg (25-34) Mean Corpuscular Hemoglobin Concent 35.0 g/dl (32-36) Platelet Count 298 K/uL (130-400) Mean Platelet Volume 9.7 fL (7.4-10.4) Neutrophils (%) (Auto) 72.3 % Lymphocytes (%) (Auto) 18.0 % Monocytes (%) (Auto) 9.5 % Eosinophils (%) (Auto) 0.0 % Basophils (%) (Auto) 0.1 % Neutrophils # (Auto) 6.36 K/uL (1.4-6.5) Lymphocytes # (Auto) 1.58 K/uL (1.2-3.4) Monocytes # (Auto) 0.84 K/uL (0.11-0.59) Eosinophils # (Auto) 0.00 K/uL (0-0.5) Basophils # (Auto) 0.01 K/uL (0-0.2) RDW Standard Deviation 38.3 fL (36.4-46.3) RDW Coefficient of Variation 12.6 % (11.5-14.5) Immature Granulocyte % (Auto) 0.1 % Immature Granulocyte # (Auto) 0.01 K/uL (0.00-0.02) Prothrombin Time 12.7 SECONDS (9.0-12.0) Prothromb Time International Ratio 1.2 (0.9-1.1) Activated Partial Thromboplast Time 26.0 SECONDS (21.0-31.0) Partial Thromboplastin Ratio 1.0 Anion Gap 10.0 mmol/L (3-11) Est Creatinine Clear Calc Drug Dose 113.7 ml/min Estimated GFR () 108.3 Estimated GFR (Non- 93.5 BUN/Creatinine Ratio 11.0 (10-20) Calcium Level 10.2 mg/dl (8.5-10.1) Total Bilirubin 0.5 mg/dl (0.2-1) Aspartate Amino Transf (AST/SGOT) 11 U/L (15-37) Alanine Aminotransferase (ALT/SGPT) 15 U/L (12-78) Alkaline Phosphatase 62 U/L (45-117) Total Protein 8.4 gm/dl (6.4-8.2) Albumin 4.5 gm/dl (3.4-5.0) Globulin 3.9 gm/dl (2.5-4.0) Albumin/Globulin Ratio 1.2 (0.9-2) Lipase 239 U/L (73-393) Influenza Type A (RT-PCR) Neg for Influ A (NEG) Influenza Type B (RT-PCR) Neg for Influ B (NEG) Urine Color DK YELLOW Urine Appearance CLOUDY (CLEAR) Urine pH 5.5 (4.5-7.5) Urine Specific [place] 1.035 (1.000-1.030) Urine Protein 1+ (NEG) Urine Glucose (UA) NEG (NEG) Urine Ketones 4+ (NEG) Urine Occult Blood NEG (NEG) Urine Nitrite NEG (NEG) Urine Bilirubin NEG (NEG) Urine Urobilinogen NEG (NEG) Urine Leukocyte Esterase NEG (NEG) Urine WBC (Auto) 1-5 /hpf (0-5) Urine RBC (Auto) 0-4 /hpf (0-4) Urine Hyaline Casts (Auto) 5-10 /lpf (0-5) Urine Epithelial Cells (Auto) >30 /lpf (0-5) Urine Bacteria (Auto) NEG (NEG) Laboratory results per my review. Medications Administered Medications (Trade) Dose Ordered Sig/Saud Route Start Time Stop Time Status Last Admin Dose Admin Sodium Chloride 1,000 ml @ 999 mls/hr Q1H1M ONCE IV 9/30/17 13:15 12/23/16 14:15 DC 12/23/16 13:24 999 MLS/HR Ondansetron HCl (Zofran Inj) 4 mg NOW STAT IV 12/23/16 13:46 12/23/16 13:47 DC 12/23/16 14:32 4 MG Sodium Chloride 1,000 ml @ 999 mls/hr Q1H1M ONCE IV 12/23/16 15:00 12/23/16 16:00 DC 12/23/16 14:57 999 MLS/HR Ondansetron HCl (Zofran Inj) 4 mg NOW STAT IV 12/23/16 14:52 12/23/16 14:53 DC 12/23/16 15:00 4 MG Calcium Carbonate (Tums Chew Tab) 1,500 mg NOW PRN PO 12/23/16 15:00 12/23/16 16:24 DC 12/23/16 15:09 1,500 MG ECG Indication: nausea Rate (beats per minute): 62 Rhythm: sinus rhythm Findings: no ectopy, other (normal axis, normal intervals) ED Course ED COURSE: Vital signs were reviewed and showed normal vital signs. The patients medical record was reviewed The above diagnostic studies were performed and reviewed. ED treatments and interventions as stated above. 1315: NSS 1000 ml @ 999 mls/hr IV. 1317: The patient was evaluated in room C3. A complete history and physical examination was performed. 1345: I reevaluated the patient. He is feeling better and denies any chest pain or shortness of breath. 1346: Zofran 4 mg IV. 1452: Zofran 4 mg IV. 1500: Calcium Carbonate 1500 mg PO, NSS 1000 ml @ 999 mls/hr IV. 1610: Upon reevaluation, the patient is feeling well and resting comfortably. I discussed my findings with the patient and he understands and agrees with the treatment plan. Based on the patients age, coexisting illnesses, exam and lab findings the decision to treat as an outpatient was made. The patient remained stable while under my care. The patient appeared well at the time of discharge. Medical Decision Differential diagnoses includes but is not limited to gastritis, peptic ulcer disease, GERD, gallbladder disease, pancreatitis, small bowel obstruction, acute coronary syndrome, pericarditis, ischemic bowel, irritable bowel disease, irritable bowel syndrome, appendicitis, diverticulitis, malignancy, hernia, urinary tract infection, torsion, perforation, trauma, infectious. Patient is a 26-year-old male who presents to ER for nausea and vomiting which started Sunday night. He had a dose of naloxone Sunday morning. She was here on the for noted dose on heroin. CBC all BMP, LFTs, bilirubin and lipase is unremarkable. UA was unremarkable. Flu was negative. INR was 1.2. History of PEs who has been taking Xa inhibitor intermittently. Denies any chest pain or shortness breath. Patient has no headaches at this time. Recommended restarting his Xa. Patient was discharged tolerating liquids following normal saline and Zofran. I do believe this is likely medication induced. Discussed with Pt concerning signs and symptoms to watch out for. Pt was instructed to follow up with their PCP and discussed with the patient their option to return to the ED at anytime for persistent or worsening symptoms. The appropriate anticipatory guidance and out-patient management, including indications for return to the emergency department, were explained at length to the patient and understood. Medication Reconcilliation Current Medication List: was personally reviewed by me Blood Pressure Screening Patient's blood pressure: Normal blood pressure Blood pressure disposition: Did not require urgent referral Impression Primary Impression: Gastroenteritis Additional Impression: Dehydration Scribe Attestation The scribe's documentation has been prepared under my direction and personally reviewed by me in its entirety. I confirm that the note above accurately reflects all work, treatment, procedures, and medical decision making performed by me. Departure Information Dispostion Home / Self-Care Prescriptions Ondasetron Odt (ZOFRAN ODT) 4 Mg Tab 4 MG SL Q6H for Nausea, #30 TAB Prov: Keren Norman MD 12/23/16 Referrals Edd Leon D.Gal (PCP) Patient Instructions My [facility] Additional Instructions You have been suffering from nausea and vomiting which resulted in dehydration. You received 2 L of fluids as well as Zofran for control of the nausea. You have been given a prescription for Zofran. Please follow up with your PCP in 2- 3 days. If symptoms worsen or change please return to the ED for evaluation. Problem Qualifiers
== END 2016-12-23 16:06 | disposition home or self-care (01) ==
LOC: C.EDB 12:24 → C.EDC 16:06
DX: K52.9 Noninfective gastroenteritis and colitis, unspecified (principal); E86.0 Dehydration; F32.9 Major depressive disorder, single episode, unspecified; F19.21 Other psychoactive substance dependence, in remission; Z79.899 Other long term (current) drug therapy

== ENCOUNTER → 2017-03-08 | Outpatient (CLI) | payer OTHER ==
[~2017-03-08] MED LIST changes: -AMOX875T PO; -DEXM10TA2 PO; +ONDA4TAB10 SL; -PARO10TA4 PO; +PARO1TAB27 PO; -RIVA1.5T PO; -ZOFRAN ODT PO
== END | disposition home or self-care (01) ==
LOC: C.LAB 05:56
DX: Z02.83 Encounter for blood-alcohol and blood-drug test (principal)

== ENCOUNTER 2017-05-13 19:39 | Emergency (ER) | payer BC, OTHER ==
[~2017-05-13] VITALS: Ht 182.9 cm; Wt 86.4 kg
[2017-05-13 19:53] VITALS: TEMP 36.7; Ht 182.9 cm; Wt 86.4 kg
[2017-05-13] MEDS ORDERED: ACETAMINOPHEN 325 MG TAB PO STA (20:22)
[2017-05-13 20:58] LABS: BASO % 0.2 %; BASO ABS # 0.02 K/uL (0-0.2); EOS % 0.9 %; EOS ABS # 0.08 K/uL (0-0.5); HEMATOCRIT 39.9 % (42-52); HEMOGLOBIN 13.8 g/dL (14.0-18.0); IG# 0.01 K/uL (0.00-0.02); LYMPH % 33.2 %; MEAN CELL VOLUME 86.9 fL (80-100); MEAN CORPUSCULAR HEMOGLOBIN 30.1 pg (25-34); MEAN CORPUSCULAR HGB CONC 34.6 g/dl (32-36); MEAN PLATELET VOLUME 9.5 fL (7.4-10.4); MONO % 10.9 %; MONO ABS # 0.92 K/uL (0.11-0.59); NEUT % 54.7 %; PLATELET COUNT 284 K/uL (130-400); RED CELL DISTRIBUTION WIDTH SD 41.8 fL (36.4-46.3); WHITE BLOOD COUNT 8.43 K/uL (4.8-10.8)
--- NOTE | 2017-05-13 21:01 | EMERGENCY ROOM VISIT NOTE ---
History Report prepared by Suellen: Connie Rice Under the Supervision of: Dr. Stefani Phan M.D. First contact with patient: 20:13 Chief Complaint: ILLNESS Stated Complaint: ILLNESS,INJURIES? History of Present Illness The patient is a 26 year old male who presents to the Emergency Room with complaints of persistent leg bruising starting 2 days ago. The patient was skiing 2 days ago when he fell several times. He reports bruising to his legs, hips, and left chest. He has pain with breathing around the bruise on his left chest. He is also having right shoulder pain. He has previously had surgery on that shoulder. He also has pain in his toes because his ski boots are small. He does not think that he hit his head. He denies any neck pain or vomiting. He noticed blood in his urine today. He is currently being treated for a sinus infection. He thinks that he saw a tapeworm in his stool a couple days ago. He has a history of PE which occurred after surgery. He was on a course of Xarelto which he has stopped at his physician's recommendation. He denies any recent drug use. Source of History: patient Onset: 2 days ago Position: leg (bilateral) Quality: other (bruising) Timing: other (persistent) Associated Symptoms: + chest pain, + urinary symptoms, No neck pain, No vomiting Note: Pt reports hip pain, right shoulder pain, toe pain. Review of Systems See HPI for pertinent positives & negatives. A total of 10 systems reviewed and were otherwise negative. Past Medical & Surgical Medical Problems: (1) Depression (2) History of narcotic addiction (3) Polysubstance abuse Family History FH: anemia MOTHER Social History Smoking Status: Current Some Day Smoker Alcohol Use: occasionally Marital Status: in relationship Housing Status: lives with family, lives with significant other Occupation Status: employed Current/Historical Medications Scheduled Clonazepam (Klonopin), 0.5 MG PO DAILY Desvenlafaxine Succinate (Desvenlafaxine ER), 25 MG PO DAILY Scheduled PRN Alprazolam (Xanax), 1 MG PO TID PRN for Anxiety Allergies Coded Allergies: No Known Allergies (Unverified , 05/13/17) Physical Exam Vital Signs Date Time Temp Pulse Resp B/P (MAP) Pulse Ox O2 Delivery O2 Flow Rate FiO2 05/13/17 23:35 82 20 120/85 97 05/13/17 22:47 75 20 119/69 96 Room Air 05/13/17 21:36 75 20 121/76 97 Room Air 05/13/17 20:37 90 05/13/17 19:53 36.7 97 20 130/71 98 Room Air Physical Exam Vital signs reviewed. General: Well-appearing male, bizarre affect, in no significant distress. HEENT: No scleral icterus, PERRLA, neck supple. Atraumatic. Cardiovascular: Regular rate and rhythm, no extra sounds. Pulmonary: Clear to auscultation bilaterally, normal work of breathing. Abdomen: Soft, nontender, nondistended, positive bowel sounds. Musculoskeletal: Ecchymosis to the bilateral hips over the greater trochanteric region, some superficial ecchymosis to the knees bilaterally with minimal swelling over the bilateral distal lower extremities, no peripheral edema. Neurologic: Patient awake alert and oriented x 3, full strength in all 4 extremities. Cranial nerves 2 through 12 grossly intact. Skin: Warm, dry, no rash Medical Decision & Procedures ER Provider Diagnostic Interpretation: X-ray results as stated below per interpretation by me and the radiologist. Radiology results as stated below per my review and radiologist interpretation: CHEST 2 VIEWS ROUTINE HISTORY: Fall. Right-sided rib pain. COMPARISON: Chest 12/23/2016. FINDINGS: The lungs are clear. Cardiac silhouette is normal in size. No pleural effusions. No pneumothorax. Postoperative changes within the right shoulder. No rib fractures. IMPRESSION: No acute process. Electronically signed by: Yonas Parrish M.D. 05/13/2017 9:44 PM Dictated Date/Time: 05/13/2017 9:42 PM RIGHT SHOULDER 3 VIEWS HISTORY: Right shoulder injury COMPARISON: None. FINDINGS: No fracture or dislocation. The right clavicle is intact. There are 2 screws within the glenoid. The hardware appears intact. Soft tissues are unremarkable. IMPRESSION: No fracture or dislocation within the right shoulder. Electronically signed by: Yonas Parrish M.D. 05/13/2017 9:37 PM Dictated Date/Time: 05/13/2017 9:36 PM BILATERAL LOWER EXTREMITY VENOUS DOPPLER HISTORY: DVT, recent pulmonary embolus COMPARISON STUDY: Venous Doppler 11/05/2016. FINDINGS: There is normal compressibility, flow, and augmentation within the bilateral lower extremity deep venous systems. IMPRESSION: No DVT within the right or left lower extremity. Electronically signed by: Yonas Parrish M.D. 05/13/2017 10:44 PM Dictated Date/Time: 05/13/2017 10:43 PM Laboratory Results 05/13/17 20:35 Red Blood Count 4.59, Mean Corpuscular Volume 86.9, Mean Corpuscular Hemoglobin 30.1, Mean Corpuscular Hemoglobin Concent 34.6, Mean Platelet Volume 9.5, Neutrophils (%) (Auto) 54.7, Lymphocytes (%) (Auto) 33.2, Monocytes (%) (Auto) 10.9, Eosinophils (%) (Auto) 0.9, Basophils (%) (Auto) 0.2, Neutrophils # (Auto ) 4.60, Lymphocytes # (Auto) 2.80, Monocytes # (Auto) 0.92, Eosinophils # (Auto ) 0.08, Basophils # (Auto) 0.02 05/13/17 20:35 Test 05/13/17 20:30 05/13/17 20:35 Urine Color YELLOW Urine Appearance CLEAR (CLEAR) Urine pH 6.0 (4.5-7.5) Urine Specific [place] 1.009 (1.000-1.030) Urine Protein NEG (NEG) Urine Glucose (UA) NEG (NEG) Urine Ketones NEG (NEG) Urine Occult Blood NEG (NEG) Urine Nitrite NEG (NEG) Urine Bilirubin NEG (NEG) Urine Urobilinogen NEG (NEG) Urine Leukocyte Esterase NEG (NEG) Urine Opiates Screen NEG (NEG) Urine Methadone, Qualitative NEG (NEG) Urine Barbiturates NEG (NEG) Urine Phencyclidine (PCP) Level NEG (NEG) Ur Amphetamine/Methamphetamine POS (NEG) MDMA (Ecstasy) Screen NEG (NEG) Urine Benzodiazepines Screen NEG (NEG) Urine Cocaine Metabolite NEG (NEG) Urine Marijuana (THC) NEG (NEG) White Blood Count 8.43 K/uL (4.8-10.8) Red Blood Count 4.59 M/uL (4.7-6.1) Hemoglobin 13.8 g/dL (14.0-18.0) Hematocrit 39.9 % (42-52) Mean Corpuscular Volume 86.9 fL (80-100) Mean Corpuscular Hemoglobin 30.1 pg (25-34) Mean Corpuscular Hemoglobin Concent 34.6 g/dl (32-36) Platelet Count 284 K/uL (130-400) Mean Platelet Volume 9.5 fL (7.4-10.4) Neutrophils (%) (Auto) 54.7 % Lymphocytes (%) (Auto) 33.2 % Monocytes (%) (Auto) 10.9 % Eosinophils (%) (Auto) 0.9 % Basophils (%) (Auto) 0.2 % Neutrophils # (Auto) 4.60 K/uL (1.4-6.5) Lymphocytes # (Auto) 2.80 K/uL (1.2-3.4) Monocytes # (Auto) 0.92 K/uL (0.11-0.59) Eosinophils # (Auto) 0.08 K/uL (0-0.5) Basophils # (Auto) 0.02 K/uL (0-0.2) RDW Standard Deviation 41.8 fL (36.4-46.3) RDW Coefficient of Variation 13.0 % (11.5-14.5) Immature Granulocyte % (Auto) 0.1 % Immature Granulocyte # (Auto) 0.01 K/uL (0.00-0.02) Prothrombin Time 11.1 SECONDS (9.0-12.0) Prothromb Time International Ratio 1.1 (0.9-1.1) Activated Partial Thromboplast Time 26.8 SECONDS (21.0-31.0) Partial Thromboplastin Ratio 1.0 Anion Gap 9.0 mmol/L (3-11) Est Creatinine Clear Calc Drug Dose 147.1 ml/min Estimated GFR () 141.3 Estimated GFR (Non- 122.0 BUN/Creatinine Ratio 17.9 (10-20) Calcium Level 8.9 mg/dl (8.5-10.1) Magnesium Level 2.1 mg/dl (1.8-2.4) Total Bilirubin 0.6 mg/dl (0.2-1) Direct Bilirubin 0.1 mg/dl (0-0.2) Aspartate Amino Transf (AST/SGOT) 35 U/L (15-37) Alanine Aminotransferase (ALT/SGPT) 25 U/L (12-78) Alkaline Phosphatase 70 U/L (45-117) Total Creatine Kinase 609 U/L (39-308) Total Protein 7.6 gm/dl (6.4-8.2) Albumin 3.7 gm/dl (3.4-5.0) Laboratory results per my review. Medications Administered Medications (Trade) Dose Ordered Sig/Saud Route Start Time Stop Time Status Last Admin Dose Admin Acetaminophen (Tylenol Tab) 650 mg NOW STAT PO 05/13/17 20:22 05/13/17 20:25 DC 05/13/17 20:48 650 MG ECG Per My Interpretation Indication: chest pain Rate (beats per minute): 80 Rhythm: normal sinus Findings: no acute ischemic change, no ectopy ED Course 2017: Past medical records reviewed. The patient was evaluated in room A10. A complete history and physical examination was performed. 2021: Acetaminophen 650 mg PO. 2316: Upon reevaluation, the patient was resting comfortably. I discussed findings with him. He verbalized agreement of the treatment plan. He was discharged home. Medical Decision Differential diagnosis: Intracranial injury, cervical spine injury, intrathoracic injury, intra- abdominal injury, musculoskeletal injury. This patient was evaluated and appeared to be in no significant distress. IV access was obtained and laboratory work was drawn. Patient was placed on motorcycle mechanic and found to be in a normal sinus rhythm. He was given Tylenol 650 mg by mouth. Laboratory work indicates a mild elevation of the total CK, likely indicative of the patient's recent skiing and multiple muscular contusions. Patient does have a long history of drug use however his urine tox is negative today with the exception of amphetamines. The patient's medicines do not explain the amphetamines. Chest x-ray was obtained and is clear. Ultrasound of bilateral lower extremities was performed and is negative for DVT. The patient's urinalysis is negative, there is no blood. I have a low suspicion for a tapeworm however the patient is not able to provide a stool specimen. He was advised to follow-up with his PCP for reevaluation and further testing if indicated. He will return to the ER for worsening of symptoms or any medical concerns. Medication Reconcilliation Current Medication List: was personally reviewed by me Blood Pressure Screening Patient's blood pressure: Normal blood pressure Blood pressure disposition: Did not require urgent referral Impression Primary Impression: Contusion, multiple sites Scribe Attestation The scribe's documentation has been prepared under my direction and personally reviewed by me in its entirety. I confirm that the note above accurately reflects all work, treatment, procedures, and medical decision making performed by me. Departure Information Dispostion Home / Self-Care Referrals No Doctor, Assigned (PCP) Forms HOME CARE DOCUMENTATION FORM, IMPORTANT VISIT INFORMATION, WORK / SCHOOL INSTRUCTIONS Patient Instructions My [facility] Additional Instructions Diagnosis: Multiple contusions Tylenol 650 mg every 6 hours as needed for pain. Drink plenty of clear fluids. Follow-up with your primary care physician this week for reevaluation. Return to the emergency department for worsening of symptoms or any medical concerns.
[2017-05-13 21:06] LABS: ALBUMIN 3.7 gm/dl (3.4-5.0); CALCIUM 8.9 mg/dl (8.5-10.1); CREATININE 0.85 mg/dl (0.60-1.40); POTASSIUM 3.6 mmol/L (3.5-5.1)
[2017-05-13] MEDS ORDERED: ALPR-385 PO (21:07)
[2017-05-13] MEDS ORDERED: DESV25TA PO (21:07)
[2017-05-13 21:08] LABS: INR 1.1 (0.9-1.1); PTT PATIENT 26.8 SECONDS (21.0-31.0)
[2017-05-13 21:09] LABS: TOTAL PROTEIN 7.6 gm/dl (6.4-8.2)
--- NOTE | 2017-05-13 21:39 | DIAGNOSTIC IMAGING REPORT ---
RIGHT SHOULDER 3 VIEWS HISTORY: Right shoulder injury COMPARISON: None. FINDINGS: No fracture or dislocation. The right clavicle is intact. There are 2 screws within the glenoid. The hardware appears intact. Soft tissues are unremarkable. IMPRESSION: No fracture or dislocation within the right shoulder. Electronically signed by: Yonas Parrish M.D. 05/13/2017 9:37 PM Dictated Date/Time: 05/13/2017 9:36 PM
--- NOTE | 2017-05-13 21:45 | DIAGNOSTIC IMAGING REPORT ---
CHEST 2 VIEWS ROUTINE HISTORY: Fall. Right-sided rib pain. COMPARISON: Chest 12/23/2016. FINDINGS: The lungs are clear. Cardiac silhouette is normal in size. No pleural effusions. No pneumothorax. Postoperative changes within the right shoulder. No rib fractures. IMPRESSION: No acute process. Electronically signed by: Ynoas Parrish M.D. 05/13/2017 9:44 PM Dictated Date/Time: 05/13/2017 9:42 PM
--- NOTE | 2017-05-13 22:45 | DIAGNOSTIC IMAGING REPORT ---
BILATERAL LOWER EXTREMITY VENOUS DOPPLER HISTORY: DVT, recent pulmonary embolus COMPARISON STUDY: Venous Doppler 11/05/2016. FINDINGS: There is normal compressibility, flow, and augmentation within the bilateral lower extremity deep venous systems. IMPRESSION: No DVT within the right or left lower extremity. Electronically signed by: Yonas Parrish M.D. 05/13/2017 10:44 PM Dictated Date/Time: 05/13/2017 10:43 PM
[2017-05-13 23:35] VITALS: BP 120/85; PULSE 82; O2SAT 97
== END 2017-05-13 23:37 | disposition home or self-care (01) ==
LOC: C.EDB 19:40 → C.EDA 23:37
DX: S80.11XA Contusion of right lower leg, initial encounter (principal); S80.12XA Contusion of left lower leg, initial encounter; S70.01XA Contusion of right hip, initial encounter; S70.02XA Contusion of left hip, initial encounter; S20.212A Contusion of left front wall of thorax, initial encounter; R31.9 Hematuria, unspecified; V00.321A Fall from snow-skis, initial encounter; Y93.23 Activity, snow (alpine) (downhill) skiing, snowboarding, sledding, tobogganing and snow tubing; Y99.8 Other external cause status; F32.9 Major depressive disorder, single episode, unspecified; F17.200 Nicotine dependence, unspecified, uncomplicated; Z86.711 Personal history of pulmonary embolism; Z83.2 Family history of diseases of the blood and blood-forming organs and certain disorders involving the immune mechanism; Z79.899 Other long term (current) drug therapy